=== PATIENT | female | born 1995 | race Caucasian/White ===

== ENCOUNTER 2018-11-11 23:06 | Inpatient (IN) | payer OTHER ==
--- NOTE | 2018-11-11 23:35 | C.PDOC ---
History Of Present Illness Patient states that she didn't feel well and felt some numbness of her left arm around 5 pm. Went to sleep and tried to get up to go to the bathroom and fell because her left leg "was not working" denies any loc, head trauma. No f/c/n/v. No long trips, no visual changes Time Seen by Provider: 11/11/18 23:21 Chief Complaint (Nursing): Upper Extremity Problem/Injury History Per: Patient History/Exam Limitations: no limitations Onset/Duration Of Symptoms: Hrs (7) Current Symptoms Are (Timing): Still Present Severity: Severe Pain Scale Rating Of: 7 Reports Recently: Treated By A Physician Recent travel outside of the [place]: No Additional History Per: Family Past Medical History Reviewed: Historical Data, Nursing Documentation, Vital Signs Vital Signs: Last Vital Signs Temp 98 F 11/11/18 23:24 Pulse 98 H 11/11/18 23:24 Resp 20 11/11/18 23:24 BP 110/76 11/11/18 23:24 Pulse Ox Family History: States: No Known Family Hx - Social History Hx Alcohol Use: No Hx Substance Use: No - Immunization History Hx Tetanus Toxoid Vaccination: No Hx Influenza Vaccination: No Hx Pneumococcal Vaccination: No Review Of Systems Constitutional: Negative for: Fever, Chills Eyes: Negative for: Vision Change ENT: Negative for: Throat Pain Cardiovascular: Negative for: Chest Pain Respiratory: Negative for: Shortness of Breath Gastrointestinal: Negative for: Nausea, Vomiting, Abdominal Pain Genitourinary: Negative for: Dysuria Musculoskeletal: Negative for: Back Pain Skin: Negative for: Rash Neurological: Positive for: Weakness Psych: Negative for: Anxiety Physical Exam - Physical Exam Appears: Non-toxic, In Acute Distress Skin: Warm, Dry Head: Normacephalic Eye(s): bilateral: Normal Inspection Oral Mucosa: Moist Neck: Trachea Midline, Supple Chest: Symmetrical Cardiovascular: Rhythm Regular Respiratory: No Rales, No Rhonchi, No Wheezing Gastrointestinal/Abdominal: Soft, No Tenderness, No Distention, No Guarding, No Rebound Back: Normal Inspection Extremity: No Tenderness, No Pedal Edema, No Other (left leg weakness) Extremity: Bilateral: Atraumatic, Normal Color And Temperature Pulses: Left Dorsalis Pedis: Normal, Right Dorsalis Pedis: Normal Neurological/Psych: Oriented x3, Normal Speech, Normal Cognition, Other Gait: Unsteady Extremity: Left: Drift Before 10 Secs (arm), Falls Before 10 Secs (leg) ED Course And Treatment - Laboratory Results Result Diagrams: 11/11/18 23:41 ECG: Interpreted By Me, Viewed By Me ECG Rhythm: Sinus Rhythm (90), Nonspecific Changes O2 Sat by Pulse Oximetry: 100 Pulse Ox Interpretation: Normal - Radiology CXR: Interpreted by Me, Viewed By Me CXR Interpretation: No: Infiltrates, Fracture, Pnemothorax Progress Note: code stroke called at 11:21 PM. 11:[address] crowder about a possible right parietal infarct on the ct. CTA no lvo. As per dr crowder, possible cardiac embolic cause. Will load plavix 300 mg and asa 81 mg,. will get echo , mri Critical Care Time - Critical Care Note Total Time (in mins): 30 Documented critical care: time excludes all time spent performing seperately billable procedures. NIHSS Stroke Scale - Date/Time Evaluation Performed Date Performed: 11/11/18 Time Performed: 23:20 When Was NIHSS Performed: Baseline - How Severe is the Stroke Level of Consciousness: 0=Alert LOC to Questions: 0=Both comments correct LOC to commands: 0=Obeys both correctly Best Gaze: 0=Normal Visual: 0=No visual loss Facial: 0=Normal Motor Arm - Left: 1=Drift noted before 10 sec Motor Arm - Right: 0=No drift Motor Leg - Left: 2=Falls before 5 sec Motor Leg - Right: 0=No drift Limb Ataxia: 0=Absent Sensory: 0=Normal Best Language: 0=No aphasia Dysarthia: 0=Normal articulation Extinction & Inattention (Neglect): 0=Normal, no object Score: 3 rTPA Inclusion/Exclusion - Refusal of Treatment Patient Refused Treatment: No - Inclusion Criteria for Altepase Patient is 18 years or Older: Yes The Clinical Diagnosis of Ischemic Stroke That is Causing a Potentially Disabling Neurological Deficit: Yes Time of Onset is Well Established to be Less Than 270 Minute Before Treatment Would Begin: No Risk/Benefit Discussed With Patient/Family Member Present: Yes - Exclusion Criteria for Altepase Uncontrolled Hypertension at Time of Treatment (Systolic BP above 185 or Diastolic BP above 110 mmHg): No Active Internal Bleeding: No Known Bleeding Diathesis Including but Not Limited to: Platelets Below 100,000/mm,PTT Above 40 sec After Heparin Use, Current Use of Oral Anitcoagulant With INR Greater Than 1.7 or PT Greater Than 15 secs: No Evidence of an Intracranial Hemorrhage: No Evidence of Major Acute Infarct With Signs Greater Than 1/3 MCA Territory: No Suspicion of Subarachnoid Hemorrhage on Pretreatment Evaluation Even if CT Head Negative For Hemorrhage: No Disposition Discussed With Dr.: Aleksandr Pisano Jr. Comment: accepted the pt on his service and took over thecare at 12:37 AM Doctor Will See Patient In The: ED Counseled Patient/Family Regarding: Studies Performed, Diagnosis - Disposition Disposition: HOSPITALIZED Disposition Time: 23:33 Condition: GUARDED Forms: [employer] (Danish) - Clinical Impression Clinical Impression: CVA (cerebral vascular accident) Decision To Admit - Pt Status Changed To: Hospital Disposition Of: Inpatient - Admit Certification Admit to Inpatient:: After my assessment, the patient will require hospitalization for at least two midnights. This is because of the severity of symptoms shown, intensity of services needed, and/or the medical risk in this patient being treated as an outpatient. - InPatient: Physician Admission Certification: I certify that this patient requires 2 or more midnights of care for the following reason:: After my assessment, the patient will require hospitalization for at least two midnights. This is becau se of the severity of symptoms shown, intensity of services needed, and/or the medical risk in this patient being treated as an outpatient. - . Bed Request Type: Telemetry Admitting Physician: Aleksandr Pisano Jr. Patient Diagnosis: CVA (cerebral vascular accident)
[2018-11-11] MEDS ORDERED: Iodixanol 320 MG/ML 100 ML BOTTLE IV ONE (23:40)
[2018-11-11 23:52] LABS: BASO % 0.1 % (0.0-2.0); EOS % 0.3 % (0.0-4.0); HEMOGLOBIN 9.8 g/dL (11.0-16.0); LYMPH # 1.5 K/uL (1.0-4.3); MEAN CORPUSCULAR HEMOGLOBIN 18.1 pg (27.0-31.0); MONO # 0.7 K/uL (0.0-0.8); RBC 5.41 Mil/uL (3.80-5.20)
[2018-11-11 23:53] LABS: INR 1.5; PROTHROMBIN TIME 15.9 SECONDS (9.7-12.2)
[2018-11-12 00:09] LABS: LDL CHOLESTEROL 60 mg/dL (0-129)
[2018-11-12 00:17] LABS: ALB/GLOB RATIO 0.7 (1.0-2.1); ALBUMIN 2.8 g/dL (3.5-5.0); ALT/SGPT 44 U/L (9-52); AST/SGOT 54 U/L (14-36); BLOOD UREA NITROGEN 6 mg/dL (7-17); CALCIUM 7.8 mg/dl (8.6-10.4); GFR NON-AFRICAN AMERICAN > 60; HDL CHOLESTEROL 27 mg/dL (30-70)
[2018-11-12] MEDS: Sodium Chloride 0.9% 1,000 ML IV SCH ×4 (00:21→22:11)
[2018-11-12 00:28] LABS: LYMPH % 17.5 % (20.0-40.0); MEAN CELL VOLUME 66.9 fL (81.0-99.0); MEAN PLATELET VOLUME 8.7 fL (7.2-11.7); MONO % 8.6 % (0.0-10.0); NEUT # 6.3 K/uL (1.8-7.0); NEUT % 73.5 % (50.0-75.0); NRBC % 0.2 % (0.0-2.0); RED CELL DISTRIBUTION WIDTH 19.3 % (11.5-14.5); WHITE BLOOD COUNT 8.6 K/uL (4.8-10.8)
--- NOTE | 2018-11-12 00:44 | CP.PCM.HP ---
History of Present Illness - History of Present Illness History of Present Illness: PGY-1 Fozia Reed D.O. H&P for Dr. Pisano's service: Patient is a 23 yo female with no known PMH who presents with L-sided weakness and numbness/tingling. Patient states that around 5PM, she started feeling pain in her L arm and then L leg. Her arm also felt weak, and she was unable to hold it up or bottom buffer things. She then started to feel numbness and tingling of her L arm. She went to bed around 9 PM and slept for approximately 1 hour. She attempted to get out of bed around 10 PM and fell onto the floor. She states she hit her head and lost consciousness. Her friend says she heard her fall and came into her room. She found her unresponsive on the floor. The friend was able to arouse her by shaking her. The friend says the patient appeared "shocked" and was unable to sit/stand up. She called 911 at that time. Presently, the patient says she has regained movement of her L leg. She says her L arm still fells week and she has numbness and tingling in her entire L arm. She also complains of mild LEMONS. Patient reports getting more frequent HAs over the past few weeks. She denies vision or hearing changes, including tinnitus. She denies chest pain, palpitations, SOB. She recently returned from [place] 10 days ago; she was there for one month. She states she had symptoms of "food poisoning" a few weeks ago, including N/V/D. She also describes recent early satiety and continued loose stools, approximately 2x/day. She denies blood in her stool. She has lost 22 lb unintentionally over the past 1 year. She went to the health clinic at her school who diagnosed her with acid reflux. They told her if symptoms do not reso lve with antacid, then she should see GI. Patient also says she has not been urinating as frequently as she used to despite having dry mouth and drinking an increased amount of fluids. She denies dysuria or hematuria. Patient reports her LMP was 2/2-11/22. She says her menses is regular, once/month with normal flow. 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 absent: Chills, Fever - EENT Eyes: absent: Blurred Vision, Change in Vision, Diplopia Ears: absent: Decreased Hearing, Tinnitus - Cardiovascular Cardiovascular: Syncope. absent: Chest Pain, Diaphoresis, Lightheadedness, Palpitations, Pedal Edema - Respiratory Respiratory: absent: Cough, Dyspnea - Gastrointestinal Gastrointestinal: Diarrhea, Dyspepsia, Early Satiety, Heartburn. absent: Abdominal Pain, Constipation, Hematochezia, Melena, Nausea, Vomiting - Genitourinary Genitourinary: Other (decreased urinary frequency). absent: Dysuria, Hematuria - Reproductive: Female Reproductive:Female: Normal Menses - Musculoskeletal Musculoskeletal: As Per HPI, Numbness, Tingling. absent: Stiffness - Integumentary Integumentary: absent: Lesions, Rash - Neurological Neurological: As Per HPI, Numbness, Focal Weakness, Headaches, Paresthesias, Sensory Deficit, Syncope, Tingling. absent: Confusion, Convulsions, Dizziness, Frequent Falls, Tremor - Endocrine Endocrine: Polydipsia. 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 Negative for: Lymphadenopathy, Tenderness, Thyromegaly - Respiratory Exam Respiratory Exam: Clear to Auscultation Bilateral, NORMAL BREATHING PATTERN. absent: Respiratory Distress - Cardiovascular Exam Cardiovascular Exam: RRR, +S1, +S2. absent: Rubs, Systolic Murmur - GI/Abdominal Exam GI & Abdominal Exam: Soft. absent: Distended, Tenderness - Extremities Exam Extremities exam: Positive for: normal inspection, pedal pulses present. Negative for: pedal edema, tenderness - Back Exam Back exam: NORMAL INSPECTION. absent: tenderness - Neurological Exam Neurological exam: Alert, CN II-XII Intact, Oriented x3 - Expanded Neurological Exam Expanded Patient oriented to: person, place, time Cranial nerves: EOM's Intact: Normal, Facial Palsey w/Forehead Movement: Normal, Facial Palsey w/o Forehead Movement: Normal, Facial Sensation: Normal, Gag Reflex: Normal, Nystagmus: Normal, Tongue Deviation: Normal Cerebellar Function: Finger to Nose: Normal Upper motor neuron: Pronator Drift: Normal Sensory exam: Lower Extremity 2 Point Discrimination: Normal, Lower Extremity Light Touch: Normal, Upper Extremity 2 Point Discrimination: Abnormal Left, Upper Extremity Light Touch: Abnormal Left Neuro motor strength exam: Left Upper Extremity: 4 (equal bottom buffer strength), Right Upper Extremity: 5, Left Lower Extremity: 5, Right Lower Extremity: 5 Coma Scale Eye Opening: SPONTANEOUS Coma Scale Motor Response: OBEYS COMMANDS Coma Scale Verbal: Oriented Coma Scale Total: 15 - Psychiatric Exam Psychiatric exam: Normal Affect, Normal Mood - Skin Skin Exam: Dry, Intact, Normal Color, Warm Results - Vital Signs Recent Vital Signs: Last Vital Signs Temp 98 F 11/11/18 23:24 Pulse 98 H 11/11/18 23:24 Resp 20 11/11/18 23:24 BP 110/76 11/11/18 23:24 Pulse Ox 100 11/12/18 00:37 - Labs Result Diagrams: 11/11/18 23:41 11/11/18 23:41 Labs: Laboratory Results - last 24 hr 11/11/18 11/11/18 11/11/18 23:24 23:41 23:41 WBC 8.6 RBC 5.41 H Hgb 9.8 L Hct 36.2 MCV 66.9 L MCH 18.1 L MCHC 27.0 L RDW 19.3 H Plt Count 268 MPV 8.7 Neut % (Auto) 73.5 Lymph % (Auto) 17.5 L Woods % (Auto) 8.6 Eos % (Auto) 0.3 Baso % (Auto) 0.1 Neut # (Auto) 6.3 Lymph # (Auto) 1.5 Woods # (Auto) 0.7 Eos # (Auto) 0.0 Baso # (Auto) 0.0 PT 15.9 H INR 1.5 APTT 27 Sodium Potassium Chloride Carbon Dioxide Anion Gap BUN Creatinine Est GFR ( Amer) Est GFR (Non-Af Amer) POC Glucose (mg/dL) 85 Random Glucose Calcium Total Bilirubin AST ALT Alkaline Phosphatase Troponin I Total Protein Albumin Globulin Albumin/Globulin Ratio Triglycerides Cholesterol LDL Cholesterol Direct HDL Cholesterol 11/11/18 23:41 WBC RBC Hgb Hct MCV MCH MCHC RDW Plt Count MPV Neut % (Auto) Lymph % (Auto) Woods % (Auto) Eos % (Auto) Baso % (Auto) Neut # (Auto) Lymph # (Auto) Woods # (Auto) Eos # (Auto) Baso # (Auto) PT INR APTT Sodium 134 Potassium 3.6 Chloride 112 H Carbon Dioxide 11 L* Anion Gap 14 BUN 6 L Creatinine 0.6 L Est GFR ( Amer) > 60 Est GFR (Non-Af Amer) > 60 POC Glucose (mg/dL) Random Glucose 79 Calcium 7.8 L Total Bilirubin 0.4 AST 54 H ALT 44 Alkaline Phosphatase 113 Troponin I < 0.0120 Total Protein 7.0 Albumin 2.8 L Globulin 4.2 H Albumin/Globulin Ratio 0.7 L Triglycerides 142 Cholesterol 91 LDL Cholesterol Direct 60 HDL Cholesterol 27 L - EKG Data EKG Interpreted by: Myself EKG shows normal: Sinus rhythm Rate: Normal Assessment & Plan - Assessment and Plan (Free Text) Assessment: Patient is a 23 yo female with no known PMH who presented with L-sided weakness. Code stroke called, and CT head showed ischemic infarct of R parietal lobe. Plan: Ischemic CVA of R parietal lobe - CT head: R parietal lobe infarct - f/u final read - CTA head/neck: negative - EKG: NSR - A1c 4.9 - SUHA negative - PT/INR/PTT wnl - Lipid panel wnl - MRI brain pending - Echo with bubble study pending - Hypercoagulability work-up pending - TSH, free T4 pending - ASA 81 mg PO daily - Plavix 75 mg PO daily (given loading dose 300 in ED_) - Neurology consulted (Lori) Microcytic anemia - LMP 2/2-2/5- regular - Hgb 9.8- unknown baseline - MCV 66.9 - Iron studies pending - Monitor H/H Ppx: VTE: SCDs contraindicated 2/2 paresthesias GI: not indicated Code status: full code Case discussed with attending, Dr. Pisano.
--- NOTE | 2018-11-12 08:09 | RAD ---
HISTORY: Code Stroke COMPARISON: None available. TECHNIQUE: Chest, one view. FINDINGS: LUNGS: No focal consolidation. Please note that chest x-ray has limited sensitivity for the detection of pulmonary masses. PLEURA: No significant pleural effusion identified. No definite pneumothorax . CARDIOVASCULAR: Heart size appears within normal limits. No significant atherosclerotic calcification present. OSSEOUS STRUCTURES: No acute osseous abnormality identified. VISUALIZED UPPER ABDOMEN: Unremarkable. OTHER FINDINGS: None. IMPRESSION: No focal consolidation.
--- NOTE | 2018-11-12 08:31 | CT ---
Date of service: 11/11/2018 PROCEDURE: CT HEAD WITHOUT CONTRAST. HISTORY: CODE STROKE COMPARISON: None available. TECHNIQUE: Axial computed tomography images were obtained through the head/brain without intravenous contrast. Radiation dose: Total exam DLP = 775.7 mGy-cm. This CT exam was performed using one or more of the following dose reduction techniques: Automated exposure control, adjustment of the mA and/or kV according to patient size, and/or use of iterative reconstruction technique. FINDINGS: HEMORRHAGE: No intracranial hemorrhage. BRAIN: No mass effect or edema. Faint hypodensity in the right parietal lobe consistent with infarction. Please note that MRI with diffusion imaging is more sensitive in the detection of acute ischemic event. VENTRICLES: No hydrocephalus. CALVARIUM: Unremarkable. PARANASAL SINUSES: Unremarkable as visualized. No significant inflammatory changes. MASTOID AIR CELLS: Unremarkable as visualized. No inflammatory changes. OTHER FINDINGS: None. IMPRESSION: Faint hypodensity in the right parietal lobe consistent with infarction. Please note that MRI with diffusion imaging is more sensitive in the detection of acute ischemic event. Preliminary impression was provided by [employer].
--- NOTE | 2018-11-12 09:52 | CT ---
Date of service: 11/11/2018 PROCEDURE: CTA HEAD AND NECK WITH CONTRAST HISTORY: CODE STROKE COMPARISON: None. TECHNIQUE: Initial noncontrast head CT was performed. Subsequently, CT angiogram of the head and neck were performed after the intravenous administration of 80 mL of Omnipaque 350. Contiguous 1.5mm thick images were obtained in the axial plane of the neck. 2-D coronal and sagittal MPR images were obtained. Imaging postprocessing was performed with 3-D images also obtained. A delayed contrast head CT was also obtained. This CT exam was performed using one or more of the following dose reduction techniques: Automated exposure control, adjustment of the mA and/or kV according to patient size, and/or use of iterative reconstruction technique. Contrast dose: 100 mL Omnipaque 350 Radiation dose: Total exam DLP = 277.15 mGy-cm. FINDINGS: HEAD: Right: The intracranial internal carotid artery, and anterior and middle cerebral arteries are widely patent. Left: The intracranial internal carotid artery, and anterior and middle cerebral arteries are widely patent. Posterior circulation: The visualized intracranial vertebral arteries, basilar artery and posterior cerebral arteries are widely patent. There is no endoluminal filling defect to suggest thrombus. There is no intracranial saccular aneurysm. NECK: There is a three vessel aortic arch. There is no stenosis at the origins of the great vessels at the level of the aortic arch. No atherosclerotic calcification or mural plaque present. Right Carotid: On the right, the common carotid, internal carotid and external carotid arteries are widely patent. There is no hemodynamically significant stenosis in the internal carotid artery by NASCET criteria. Left Carotid: On the left, the common carotid, internal carotid and external carotid arteries are widely patent. There is no hemodynamically significant stenosis in the internal carotid artery by NASCET criteria. The vertebral arteries are widely patent. The visualized soft tissues of the neck are normal. The visualized brain and cervical spine are within normal limits. The lung apices are clear. IMPRESSION: 1. No evidence of endoluminal thrombus,occlusion or definite significant stenosis in the intracranial arteries. 2. No evidence of hemodynamically significant stenosis in the internal carotid arteries. 3. Patent bilateral vertebral arteries. A preliminary report was provided by [email or web address].
[2018-11-12] MEDS ORDERED: Gadodiamide 287 MG/ML VIAL (15ML) IV ONE (09:59)
--- NOTE | 2018-11-12 10:45 | CARD ---
APPROVED REPORT Date of service: 11/12/2018 EKG Measurement Heart [id number] <Conclusion> Normal sinus rhythm Normal ECG
--- NOTE | 2018-11-12 10:58 | CP.PCM.PN ---
Subjective - Date & Time of Evaluation Date of Evaluation: 11/12/18 Time of Evaluation: 10:53 - Subjective Subjective: Saulo Patrick PGY1 Progress Note for Dr. Pisano Pt examined at bedside this morning. She reports feeling tired and weak this morning. However, she says the numbness and tingling in the L side of the body has stopped. She denies headache, blurry vision, dizziness at this time. Objective - Vital Signs/Intake and Output Vital Signs (last 24 hours): Temp Pulse Resp BP Pulse Ox 99 F 88 20 106/56 L 100 11/12/18 08:00 11/12/18 08:00 11/12/18 08:00 11/12/18 08:00 11/12/18 08:00 Intake and Output: 11/12/18 11/12/18 06:59 18:59 Intake Total 0 Output Total 0 Balance 0 - Medications Medications: Current Medications Aspirin (Ecotrin) 81 mg PO DAILY DONTRELL Clopidogrel Bisulfate (Plavix) 75 mg PO DAILY DONTRELL Sodium Chloride (Sodium Chloride 0.9%) 1,000 mls @ 100 mls/hr IV .Q10H DONTRELL Last Admin: 11/12/18 00:21 Dose: 100 mls/hr - Labs Labs: 11/11/18 23:41 11/11/18 23:41 PT 15.9 SECONDS (9.7-12.2) H 11/11/18 23:41 INR 1.5 11/11/18 23:41 APTT 27 SECONDS (21-34) 11/11/18 23:41 - Constitutional Appears: Well, No Acute Distress - Head Exam Head Exam: ATRAUMATIC, NORMOCEPHALIC - Eye Exam Eye Exam: EOMI, Normal appearance, PERRL Pupil Exam: NORMAL ACCOMODATION - ENT Exam ENT Exam: Mucous Membranes Moist - Respiratory Exam Respiratory Exam: Clear to Ausculation Bilateral, NORMAL BREATHING PATTERN. absent: Rales, Rhonchi, Wheezes - Cardiovascular Exam Cardiovascular Exam: REGULAR RHYTHM, +S1, +S2. absent: Gallop, Rubs, Murmur - GI/Abdominal Exam GI & Abdominal Exam: Soft, Normal Bowel Sounds. absent: Distended, Firm, Tenderness - Extremities Exam Extremities Exam: Normal Inspection. absent: Calf Tenderness, Joint Swelling, Pedal Edema - Neurological Exam Neurological Exam: Alert, Awake, CN II-XII Intact, Motor Sensory Deficit, Oriented x3 Neuro motor strength exam: Left Upper Extremity: 4, Right Upper Extremity: 5, Left Lower Extremity: 5, Right Lower Extremity: 5 Additional comments: no sensory deficit cement block maker strength intact b/l +pronator drift downgoing babinski b/l - Psychiatric Exam Psychiatric exam: Anxious - Skin Skin Exam: Normal Color Assessment and Plan - Assessment and Plan (Free Text) Assessment: Patient is a 23 yo female with no known PMH who presented with L-sided weakness. Code stroke called, and CT head showed ischemic infarct of R parietal lobe, admitted for further workup and evaluation. MRI showed R posterior parietal infarct, likely secondary to hypercoaguable state due to dehydration. Plan: Left Sided Neuropathy Ischemic CVA of R parietal lobe - likely secondary to dehydration causing hypercoaguable state - history of diarrhea x3 weeks - CT head: faint hypodensity in R parietal lobe consistent with infarction. - CTA head/neck: negative - MRI brain: 3.6x2.4cm venous infarct in R posterior parietal area from thrombus. no midline shift or mass effect. - MRI C-spine: no abnormalities - EKG: NSR - HbA1c 4.9 - SUHA negative - PT/INR/PTT wnl - Lipid panel wnl - Echo with bubble study pending - f/u ESR, CRP, HIV, RPR, Hep panel, lyme, quantiferon - Hypercoagulability work-up pending - TSH, free T4 pending - consider LP - Neurology consulted, Dr. Sandoval - recs appreciated Diarrhea - f/u stool ova and parasite - f/u giardia, cryptosporidium - f/u fecal leukocytes - consider GI consult to prevent bleed Microcytic anemia - LMP 2/2-2/5- regular - Hgb 9.8- unknown baseline - MCV 66.9 - Iron studies pending - f/u B12 - Monitor H/H Ppx: VTE: SCDs contraindicated 2/2 paresthesias GI: not indicated Code status: full code Case discussed with attending, Dr. Pisano.
[2018-11-12] MEDS ORDERED: Heparin25000 units/250ml 1/2NS 25,000 UNITS/250 ML BAG IV PRN (11:34)
--- NOTE | 2018-11-12 11:36 | MRI ---
Date of service: 11/12/2018 PROCEDURE: MRI BRAIN WITH AND WITHOUT CONTRAST HISTORY: code stroke COMPARISON: Noncontrast head CT from 11/11/2018. TECHNIQUE: Multiplanar, multisequence MR images of the brain were obtained with and without intravenous contrast enhancement. 9 mL Omniscan was injected intravenously FINDINGS: HEMORRHAGE: There is an approximately 3.6 x 2.4 cm venous infarction in the right posterior parietal lobe with juxtacortical hemorrhage. There is linear increased magnetic susceptibility corresponding to the juxtacortical hemorrhage on gradient images. DWI: There is peripheral restricted diffusion in the right posterior parietal hemorrhagic venous infarction. BRAIN PARENCHYMA: There is mild local mass effect and effacement of the cortical sulci. No evidence for midline shift or herniation. There is no abnormal extra-axial fluid collection. ENHANCEMENT: There is curvilinear peripheral and linear central enhancement in the right posterior parietal hemorrhagic venous infarction. VENTRICLES: The ventricles are normal in size, shape and configuration. CRANIUM: There is normal bone marrow signal pattern. ORBITS: Grossly unremarkable. PARANASAL SINUSES/MASTOIDS: Predominantly clear. VASCULAR SYSTEM: There are normal signal voids in the larger intracranial arteries. There is increased T1 signal in a peripheral cortical vein in the right posterior parietal lobe leading up to the hemorrhagic venous infarction most compatible with cortical venous thrombus. OTHER FINDINGS: None . IMPRESSION: 1. 3.6 x 2.4 cm venous infarction in the right posterior parietal lobe with juxtacortical hemorrhage. No significant mass effect or midline shift. 2. Cortical venous thrombosis leading up to the hemorrhagic venous infarction in the right posterior parietal lobe. Critical findings were discussed with Dr. Arturo Sandoval on 11/12/2018 at 11:15 a.m.
[2018-11-12] MEDS ORDERED: Sodium Chloride 0.9% 500 ML IV ONE (11:37)
--- NOTE | 2018-11-12 11:42 | MRI ---
Date of service: 11/12/2018 PROCEDURE: MR CERVICAL SPINE WITH AND WITHOUT CONTRAST HISTORY: neuro deficits COMPARISON: None available. TECHNIQUE: Multiecho multiplanar sequences were performed through the cervical spine with and without the use of intravenous contrast. 8 mL Omniscan was injected in FINDINGS: There is normal alignment of the cervical vertebral bodies. There is normal cervical lordosis. Vertebral height is normal. There is normal bone marrow signal pattern. There is no acute fracture or traumatic anterior listhesis. The craniocervical junction is normal. The atlantoaxial joint normal. The cervical cord is normal in contour, caliber and has normal intrinsic signal. No evidence for abnormal intramedullary or leptomeningeal enhancement. C2-3: No disc herniation, spinal canal stenosis or neural foraminal narrowing. C3-4: No disc herniation, spinal canal stenosis or neural foraminal narrowing. C4-5: No disc herniation, spinal canal stenosis or neural foraminal narrowing. C5-C6: No disc herniation, spinal canal stenosis or neural foraminal narrowing. C6-C7: No disc herniation, spinal canal stenosis or neuroforaminal narrowing. C7-T1: No disc herniation, spinal canal stenosis or neural foraminal narrowing. OTHER FINDINGS: None. IMPRESSION: Normal pre and post contrast MRI of the cervical spine.
[2018-11-12 12:31] LABS: SQUAMOUS EPITHIAL 1 /hpf (0-5); URINE BILIRUBIN NEGATIVE (NEGATIVE); URINE BLOOD NEGATIVE (NEGATIVE); URINE CLARITY Hazy (Clear); URINE COLOR Yellow (YELLOW); URINE GLUCOSE (UA) NORMAL (Normal); URINE LEUKOCYTE ESTERASE NEG Leu/uL (Negative); URINE PROTEIN NEGATIVE (NEGATIVE); URINE UROBILINOGEN NORMAL mg/dL (0.2-1.0)
[2018-11-12] MEDS: Heparin25000 units/250ml 1/2NS 25,000 UNITS/250 ML BAG IV PRN (13:00)
--- NOTE | 2018-11-12 13:27 | CP.PCM.CON ---
<Maryann MedinaFide - Last Filed: 11/12/18 13:16> History of Present Illness - History of Present Illness History of Present Illness: PGY2- Consult note for neuro Patient is a 23 year old female with no known PMHx who presented to the ED with left sided weakness and numbness and tingling. Patient said she was at home when she started to notice left sided arm heaviness and heaviness and tingling in her head. She also noticed some left sided leg weakness. Patient continued on with her night, had dinner, and went to bed. She woke up about 45 minutes later feeling some jerking and heaviness in her left arm. When she tried to get out of bed she fell and lost consciousness. Her roommate heard her fall and found her unresponsive on the ground, but was able to wake her. Her roommate called 911 and patient was brought to ER by ambulance. Of note patient had been sick in [place] (she visited for 1 month and returned about 10 days ago) starting at the end of September with diarrhea. Patient was given Ofloxacin which she completed the full course of. Patient also admits to about 10kg of unintentional weight loss over the past year. Today patient still has some left sided weakness. Patient denies any numbness or tingling. Patient denies headache, dizziness, chest pain, abdominal pain, nausea, vomiting, constipation. Patient's last bm was yesterday. 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 absent: Nausea, Vomiting - Musculoskeletal Musculoskeletal: absent: Numbness, Tingling - Integumentary Integumentary: absent: Rash - Neurological Neurological: Weakness Past Patient History - Infectious Disease Hx of Infectious Diseases: None - Tetanus Immunizations Tetanus Immunization: Unknown - Past Medical History & Family History Past Medical History?: Yes - Past Social History Smoking Status: Never Smoked - CARDIAC Hx Cardiac Disorders: No - PULMONARY Hx Respiratory Disorders: No - NEUROLOGICAL Hx Neurological Disorder: No - HEENT Hx HEENT Problems: No - RENAL Hx Chronic Kidney Disease: No - ENDOCRINE/METABOLIC Hx Endocrine Disorders: No - HEMATOLOGICAL/ONCOLOGICAL Hx Blood Disorders: No - INTEGUMENTARY Hx Dermatological Problems: No - MUSCULOSKELETAL/RHEUMATOLOGICAL Hx Musculoskeletal Disorders: No Hx Falls: Yes - GASTROINTESTINAL Hx Gastrointestinal Disorders: Yes Hx Diarrhea: Yes Hx Gastroesophageal Reflux: Yes - GENITOURINARY/GYNECOLOGICAL Hx Genitourinary Disorders: No - PSYCHIATRIC Hx Psychophysiologic Disorder: No Hx Substance Use: No - SURGICAL HISTORY Hx Surgeries: No - ANESTHESIA Hx Anesthesia: No Meds Allergies/Adverse Reactions: Allergies Allergy/AdvReac Type Severity Reaction Status Date / Time No Known Allergies Allergy Unverified 11/11/18 23:27 - Medications Medications: Current Medications Aspirin (Ecotrin) 81 mg PO DAILY [facility] Last Admin: 11/12/18 11:33 Dose: 81 mg Clopidogrel Bisulfate (Plavix) 75 mg PO DAILY [facility] Last Admin: 11/12/18 11:31 Dose: 75 mg Sodium Chloride (Sodium Chloride 0.9%) 1,000 mls @ 100 mls/hr IV .Q10H [facility] Last Admin: 11/12/18 11:29 Dose: Not Given Heparin Sodium/Sodium Chloride (Heparin 08777 Units/250ml 1/2 Normal Saline) 25,000 units in 250 mls @ 6.891 mls/hr IV .Q24H PRN; Protocol PRN Reason: PROTOCOL Physical Exam - Constitutional Appears: Non-toxic, No Acute Distress, Cachectic - Head Exam Head Exam: ATRAUMATIC, NORMAL INSPECTION, NORMOCEPHALIC - Eye Exam Eye Exam: EOMI, Normal appearance - ENT Exam ENT Exam: Mucous Membranes Moist - Respiratory Exam Respiratory Exam: Clear to Auscultation Bilateral, NORMAL BREATHING PATTERN. absent: Rales, Rhonchi, Wheezes, Respiratory Distress, Stridor - Cardiovascular Exam Cardiovascular Exam: REGULAR RHYTHM, RRR, +S1, +S2 - GI/Abdominal Exam GI & Abdominal Exam: Hyperactive Bowel Sounds, Soft. absent: Tenderness - Extremities Exam Extremities exam: Positive for: normal inspection - Back Exam Back exam: NORMAL INSPECTION - Neurological Exam Neurological exam: Alert, CN II-XII Intact, Oriented x3 - Expanded Neurological Exam Expanded Patient oriented to: person, place, time Cerebellar Function: Finger to Nose: Abnormal Left Upper motor neuron: Babinski Sign: Normal, Jaime Neglect: Abnormal Left, Pronator Drift: Abnormal Left, Sensory Extinction: Normal Neuro motor strength exam: Left Upper Extremity: 5, Right Upper Extremity: 5, Left Lower Extremity: 5, Right Lower Extremity: 5 - Psychiatric Exam Psychiatric exam: Normal Affect, Normal Mood - Skin Skin Exam: Intact, Normal Color, Warm Results - Vital Signs Recent Vital Signs: Last Vital Signs Temp 99 F 11/12/18 08:00 Pulse 88 11/12/18 08:00 Resp 20 11/12/18 08:00 BP 106/56 L 11/12/18 08:00 Pulse Ox 100 11/12/18 08:00 - Labs Result Diagrams: 11/11/18 23:41 11/11/18 23:41 Labs: Laboratory Results - last 24 hr 11/11/18 11/11/18 11/11/18 23:24 23:41 23:41 WBC 8.6 RBC 5.41 H Hgb 9.8 L Hct 36.2 MCV 66.9 L MCH 18.1 L MCHC 27.0 L RDW 19.3 H Plt Count 268 MPV 8.7 Neut % (Auto) 73.5 Lymph % (Auto) 17.5 L [place] % (Auto) 8.6 Eos % (Auto) 0.3 Baso % (Auto) 0.1 Neut # (Auto) 6.3 Lymph # (Auto) 1.5 [place] # (Auto) 0.7 Eos # (Auto) 0.0 Baso # (Auto) 0.0 PT 15.9 H INR 1.5 APTT 27 Sodium Potassium Chloride Carbon Dioxide Anion Gap BUN Creatinine Est GFR ( Amer) Est GFR (Non-Af Amer) POC Glucose (mg/dL) 85 Random Glucose Hemoglobin A1c Calcium Total Bilirubin AST ALT Alkaline Phosphatase Troponin I Total Protein Albumin Globulin Albumin/Globulin Ratio Triglycerides Cholesterol LDL Cholesterol Direct HDL Cholesterol Urine Color Urine Clarity Urine pH Ur Specific [place] Urine Protein Urine Glucose (UA) Urine Ketones Urine Blood Urine Nitrate Urine Bilirubin Urine Urobilinogen Ur Leukocyte Esterase Urine WBC (Auto) Urine RBC (Auto) Ur Squamous Epith Cells 11/11/18 11/11/18 11/12/18 23:41 23:41 12:01 WBC RBC Hgb Hct MCV MCH MCHC RDW Plt Count MPV Neut % (Auto) Lymph % (Auto) [place] % (Auto) Eos % (Auto) Baso % (Auto) Neut # (Auto) Lymph # (Auto) [place] # (Auto) Eos # (Auto) Baso # (Auto) PT INR APTT Sodium 134 Potassium 3.6 Chloride 112 H Carbon Dioxide 11 L* Anion Gap 14 BUN 6 L Creatinine 0.6 L Est GFR ( Amer) > 60 Est GFR (Non-Af Amer) > 60 POC Glucose (mg/dL) Random Glucose 79 Hemoglobin A1c 4.9 Calcium 7.8 L Total Bilirubin 0.4 AST 54 H ALT 44 Alkaline Phosphatase 113 Troponin I < 0.0120 Total Protein 7.0 Albumin 2.8 L Globulin 4.2 H Albumin/Globulin Ratio 0.7 L Triglycerides 142 Cholesterol 91 LDL Cholesterol Direct 60 HDL Cholesterol 27 L Urine Color Yellow Urine Clarity Hazy Urine pH 5.0 Ur Specific [place] 1.012 Urine Protein Negative Urine Glucose (UA) Normal Urine Ketones Negative Urine Blood Negative Urine Nitrate Negative Urine Bilirubin Negative Urine Urobilinogen Normal Ur Leukocyte Esterase Neg Urine WBC (Auto) 3 Urine RBC (Auto) < 1 Ur Squamous Epith Cells 1 Assessment & Plan - Assessment and Plan (Free Text) Assessment: Cortical Venous Thrombosis causing Venous Infarction in R posterior parietal lobe transfer to ICU MRI (11/12/18) : 3.6 x 2.4cm venous infarction in the right posterior parietal lobe with juxtacortical hemorrhage. no significant mass effect or midline shift. cortical venous thrombosis leading up to the hemorrhagic venous infarction in the right posterior parietal lobe. MRI C spine (11/12/18): normal pre and post contrast MRI of the cervical spine. CTA head and neck (11/11/18): 1. no evidence of endoluminal thrombus, occlusion, or definite significant stenosis in the intracranial arteries. 2. No evidence of hemodynamically significant stenosis in the internal carotid arteries. 3.Patent bilateral vertebral arteries. CT Head (11/11/18): faint hypodensity in the right parietal lobe consistent with infarction. f/u Echo with bubble study pending f/u Hypercoagulability work-up, vit B12, TSH, free T4 f/u HIV, RPR, hepatitis panel meds: * Heparin drip, please keep PTT 80-90 * NS 500ml bolus given, continue at 100mls/hr Diarrhea f/u stool studies: cryptosporidium, giardia, fecal leukocytes, stool culture start Florastor 250mg po BID GI consult, help appreciated Discussed with Dr. Lori Medina, PGY2 <Montez Bojorquez - Last Filed: 11/12/18 18:07> Meds - Medications Medications: Current Medications Sodium Chloride (Sodium Chloride 0.9%) 1,000 mls @ 100 mls/hr IV .Q10H [facility] Last Admin: 11/12/18 11:29 Dose: Not Given Heparin Sodium/Sodium Chloride (Heparin 00761 Units/250ml 1/2 Normal Saline) 25,000 units in 250 mls @ 6.891 mls/hr IV .Q24H PRN; Protocol PRN Reason: PROTOCOL Last Admin: 11/12/18 13:00 Dose: 18 units/kg/hr, 6.891 mls/hr Ciprofloxacin (Cipro 400mg/200ml Dsw) 400 mg in 200 mls @ 133 mls/hr IVPB Q12H [facility]; Protocol Metronidazole (Flagyl) 500 mg in 100 mls @ 100 mls/hr IVPB Q8H [facility]; Protocol Magnesium Sulfate/Dextrose (Magnesium Sulfate 1 Gm/100 Ml D5w) 1 gm in 100 mls @ 200 mls/hr IVPB Q30M [facility] Stop: 11/12/18 18:59 Pantoprazole Sodium (Protonix Ec Tab) 40 mg PO DAILY [facility] Saccharomyces Boulardii (Florastor) 250 mg PO BID [facility] Results - Vital Signs Recent Vital Signs: Last Vital Signs Temp 101.8 F H 11/12/18 15:00 Pulse 130 H 11/12/18 18:00 Resp 23 11/12/18 18:00 BP 88/62 L 11/12/18 17:38 Pulse Ox 100 11/12/18 18:00 - Labs Result Diagrams: 11/12/18 16:06 11/11/18 23:41 Labs: Laboratory Results - last 24 hr 11/11/18 11/11/18 11/11/18 23:24 23:41 23:41 WBC 8.6 RBC 5.41 H Hgb 9.8 L Hct 36.2 MCV 66.9 L MCH 18.1 L MCHC 27.0 L RDW 19.3 H Plt Count 268 MPV 8.7 Neut % (Auto) 73.5 Lymph % (Auto) 17.5 L [place] % (Auto) 8.6 Eos % (Auto) 0.3 Baso % (Auto) 0.1 Neut # (Auto) 6.3 Lymph # (Auto) 1.5 [place] # (Auto) 0.7 Eos # (Auto) 0.0 Baso # (Auto) 0.0 ESR PT 15.9 H INR 1.5 APTT 27 Sodium Potassium Chloride Carbon Dioxide Anion Gap BUN Creatinine Est GFR ( Amer) Est GFR (Non-Af Amer) POC Glucose (mg/dL) 85 Random Glucose Hemoglobin A1c Calcium Phosphorus Magnesium Iron TIBC % Saturation Ferritin Total Bilirubin AST ALT Alkaline Phosphatase Troponin I Total Protein Albumin Globulin Albumin/Globulin Ratio Triglycerides Cholesterol LDL Cholesterol Direct HDL Cholesterol Vitamin B12 Free T4 TSH 3rd Generation Urine Color Urine Clarity Urine pH Ur Specific [place] Urine Protein Urine Glucose (UA) Urine Ketones Urine Blood Urine Nitrate Urine Bilirubin Urine Urobilinogen Ur Leukocyte Esterase Urine WBC (Auto) Urine RBC (Auto) Ur Squamous Epith Cells RPR Hepatitis A IgM Ab Hep Bs Antigen Hep B Core IgM Ab Hepatitis C Antibody 11/11/18 11/11/18 11/12/18 23:41 23:41 12:01 WBC RBC Hgb Hct MCV MCH MCHC RDW Plt Count MPV Neut % (Auto) Lymph % (Auto) [place] % (Auto) Eos % (Auto) Baso % (Auto) Neut # (Auto) Lymph # (Auto) [place] # (Auto) Eos # (Auto) Baso # (Auto) ESR PT INR APTT Sodium 134 Potassium 3.6 Chloride 112 H Carbon Dioxide 11 L* Anion Gap 14 BUN 6 L Creatinine 0.6 L Est GFR ( Amer) > 60 Est GFR (Non-Af Amer) > 60 POC Glucose (mg/dL) Random Glucose 79 Hemoglobin A1c 4.9 Calcium 7.8 L Phosphorus Magnesium Iron TIBC % Saturation Ferritin Total Bilirubin 0.4 AST 54 H ALT 44 Alkaline Phosphatase 113 Troponin I < 0.0120 Total Protein 7.0 Albumin 2.8 L Globulin 4.2 H Albumin/Globulin Ratio 0.7 L Triglycerides 142 Cholesterol 91 LDL Cholesterol Direct 60 HDL Cholesterol 27 L Vitamin B12 Free T4 TSH 3rd Generation Urine Color Yellow Urine Clarity Hazy Urine pH 5.0 Ur Specific [place] 1.012 Urine Protein Negative Urine Glucose (UA) Normal Urine Ketones Negative Urine Blood Negative Urine Nitrate Negative Urine Bilirubin Negative Urine Urobilinogen Normal Ur Leukocyte Esterase Neg Urine WBC (Auto) 3 Urine RBC (Auto) < 1 Ur Squamous Epith Cells 1 RPR Hepatitis A IgM Ab Hep Bs Antigen Hep B Core IgM Ab Hepatitis C Antibody 11/12/18 11/12/18 11/12/18 15:59 15:59 15:59 WBC RBC Hgb Hct MCV MCH MCHC RDW Plt Count MPV Neut % (Auto) Lymph % (Auto) [place] % (Auto) Eos % (Auto) Baso % (Auto) Neut # (Auto) Lymph # (Auto) [place] # (Auto) Eos # (Auto) Baso # (Auto) ESR PT INR APTT Sodium Potassium Chloride Carbon Dioxide Anion Gap BUN Creatinine Est GFR ( Amer) Est GFR (Non-Af Amer) POC Glucose (mg/dL) Random Glucose Hemoglobin A1c Calcium Phosphorus 3.0 Magnesium 1.5 L Iron 24 L TIBC 204 L % Saturation 12 L Ferritin 4.2 Total Bilirubin AST ALT Alkaline Phosphatase Troponin I Total Protein Albumin Globulin Albumin/Globulin Ratio Triglycerides Cholesterol LDL Cholesterol Direct HDL Cholesterol Vitamin B12 301 Free T4 TSH 3rd Generation 1.03 Urine Color Urine Clarity Urine pH Ur Specific [place] Urine Protein Urine Glucose (UA) Urine Ketones Urine Blood Urine Nitrate Urine Bilirubin Urine Urobilinogen Ur Leukocyte Esterase Urine WBC (Auto) Urine RBC (Auto) Ur Squamous Epith Cells RPR Hepatitis A IgM Ab Negative Hep Bs Antigen Negative Hep B Core IgM Ab Negative Hepatitis C Antibody Negative 11/12/18 11/12/18 11/12/18 16:03 16:03 16:06 WBC RBC Hgb Hct MCV MCH MCHC RDW Plt Count MPV Neut % (Auto) Lymph % (Auto) [place] % (Auto) Eos % (Auto) Baso % (Auto) Neut # (Auto) Lymph # (Auto) [place] # (Auto) Eos # (Auto) Baso # (Auto) ESR 10 PT INR APTT Sodium Potassium Chloride Carbon Dioxide Anion Gap BUN Creatinine Est GFR ( Amer) Est GFR (Non-Af Amer) POC Glucose (mg/dL) Random Glucose Hemoglobin A1c Calcium Phosphorus Magnesium Iron TIBC % Saturation Ferritin Total Bilirubin AST ALT Alkaline Phosphatase Troponin I Total Protein Albumin Globulin Albumin/Globulin Ratio Triglycerides Cholesterol LDL Cholesterol Direct HDL Cholesterol Vitamin B12 Free T4 1.42 TSH 3rd Generation Urine Color Urine Clarity Urine pH Ur Specific [place] Urine Protein Urine Glucose (UA) Urine Ketones Urine Blood Urine Nitrate Urine Bilirubin Urine Urobilinogen Ur Leukocyte Esterase Urine WBC (Auto) Urine RBC (Auto) Ur Squamous Epith Cells RPR Nonreactive Hepatitis A IgM Ab Hep Bs Antigen Hep B Core IgM Ab Hepatitis C Antibody 11/12/18 16:06 WBC 6.6 RBC 4.63 Hgb 8.6 L Hct 29.8 L MCV 64.5 L D MCH 18.6 L MCHC 28.8 L RDW 18.5 H Plt Count 246 MPV 8.7 Neut % (Auto) 70.6 Lymph % (Auto) 20.6 [place] % (Auto) 8.6 Eos % (Auto) 0.1 Baso % (Auto) 0.1 Neut # (Auto) 4.7 Lymph # (Auto) 1.4 [place] # (Auto) 0.6 Eos # (Auto) 0.0 Baso # (Auto) 0.0 ESR PT INR APTT Sodium Potassium Chloride Carbon Dioxide Anion Gap BUN Creatinine Est GFR ( Amer) Est GFR (Non-Af Amer) POC Glucose (mg/dL) Random Glucose Hemoglobin A1c Calcium Phosphorus Magnesium Iron TIBC % Saturation Ferritin Total Bilirubin AST ALT Alkaline Phosphatase Troponin I Total Protein Albumin Globulin Albumin/Globulin Ratio Triglycerides Cholesterol LDL Cholesterol Direct HDL Cholesterol Vitamin B12 Free T4 TSH 3rd Generation Urine Color Urine Clarity Urine pH Ur Specific [place] Urine Protein Urine Glucose (UA) Urine Ketones Urine Blood Urine Nitrate Urine Bilirubin Urine Urobilinogen Ur Leukocyte Esterase Urine WBC (Auto) Urine RBC (Auto) Ur Squamous Epith Cells RPR Hepatitis A IgM Ab Hep Bs Antigen Hep B Core IgM Ab Hepatitis C Antibody <Jose Martin Sandoval - Last Filed: 11/15/18 15:38> Meds - Medications Medications: Current Medications Acetaminophen (Tylenol 325mg Tab) 650 mg PO Q6 PRN PRN Reason: Fever >100.4 F Last Admin: 11/13/18 00:01 Dose: 650 mg Ferric Sodium Gluconate Complex (Ferrlecit) 125 mg IVPB DAILY [facility] Stop: 11/23/18 10:01 Last Admin: 11/15/18 09:21 Dose: 125 mg Ferrous Sulfate (Feosol Liq) 300 mg PO DAILY [facility] Last Admin: 11/15/18 09:23 Dose: 300 mg Heparin Sodium/Sodium Chloride (Heparin 67359 Units/250ml 1/2 Normal Saline) 25,000 units in 250 mls @ 6.891 mls/hr IV .Q24H PRN; Protocol PRN Reason: PROTOCOL Last Admin: 11/13/18 17:56 Dose: 14.88 units/kg/hr, 5.7 mls/hr Metronidazole (Flagyl) 500 mg in 100 mls @ 100 mls/hr IVPB Q8H [facility]; Protocol Last Admin: 11/15/18 12:09 Dose: 100 mls/hr Ceftriaxone Sodium 2 gm/ (Sodium Chloride) 100 mls @ 100 mls/hr IVPB DAILY [facility]; Protocol Last Admin: 11/15/18 10:39 Dose: 100 mls/hr Sodium Chloride (Sodium Chloride 0.9%) 1,000 mls @ 100 mls/hr IV .Q10H [facility] Last Admin: 11/15/18 07:52 Dose: 100 mls/hr Levetiracetam (Keppra) 500 mg PO BID [facility] Lorazepam (Ativan) 0.5 mg IVP Q6H PRN PRN Reason: Agitation Last Admin: 11/13/18 09:39 Dose: 0.5 mg Pantoprazole Sodium (Protonix Ec Tab) 40 mg PO DAILY [facility] Last Admin: 11/15/18 09:23 Dose: 40 mg Saccharomyces Boulardii (Florastor) 250 mg PO BID [facility] Last Admin: 11/15/18 09:23 Dose: 250 mg Warfarin Sodium (Coumadin) 3 mg PO 1800 [facility] Stop: 11/15/18 18:01 Results - Vital Signs Recent Vital Signs: Last Vital Signs Temp 98.6 F 11/15/18 12:00 Pulse 116 H 11/15/18 15:00 Resp 23 11/15/18 15:00 BP 100/61 11/15/18 12:10 Pulse Ox 100 11/15/18 15:00 - Labs Result Diagrams: 11/15/18 06:28 11/15/18 06:28 Labs: Laboratory Results - last 24 hr 11/12/18 11/12/18 11/14/18 19:42 19:42 06:00 WBC RBC Hgb Hct MCV MCH MCHC RDW Plt Count MPV Neut % (Auto) Lymph % (Auto) [place] % (Auto) Eos % (Auto) Baso % (Auto) Neut # (Auto) Lymph # (Auto) [place] # (Auto) Eos # (Auto) Baso # (Auto) PT INR APTT Sodium Potassium Chloride Carbon Dioxide Anion Gap BUN Creatinine Est GFR ( Amer) Est GFR (Non-Af Amer) POC Glucose (mg/dL) Random Glucose Hemoglobin A1c Calcium Phosphorus Magnesium Total Bilirubin AST ALT Alkaline Phosphatase Total Protein Albumin Globulin Albumin/Globulin Ratio Lyme Disease Screen <0.90 Giardia Antigen Not detected HIV 1&2 Antibody Screen HIV 1&2 Antibody Nonreactive 11/14/18 11/14/18 11/14/18 06:54 16:03 20:05 WBC RBC Hgb Hct MCV MCH MCHC RDW Plt Count MPV Neut % (Auto) Lymph % (Auto) [place] % (Auto) Eos % (Auto) Baso % (Auto) Neut # (Auto) Lymph # (Auto) [place] # (Auto) Eos # (Auto) Baso # (Auto) PT 19.7 H INR 1.8 APTT Sodium Potassium Chloride Carbon Dioxide Anion Gap BUN Creatinine Est GFR ( Amer) Est GFR (Non-Af Amer) POC Glucose (mg/dL) 97 Random Glucose Hemoglobin A1c Calcium Phosphorus Magnesium Total Bilirubin AST ALT Alkaline Phosphatase Total Protein Albumin Globulin Albumin/Globulin Ratio Lyme Disease Screen Giardia Antigen HIV 1&2 Antibody Screen Negative HIV 1&2 Antibody 11/14/18 11/15/18 11/15/18 21:15 06:28 06:28 WBC 3.8 L D RBC 4.51 Hgb 8.6 L Hct 29.8 L MCV 65.9 L MCH 19.0 L MCHC 28.8 L RDW 19.5 H Plt Count 277 MPV 8.1 Neut % (Auto) 45.7 L Lymph % (Auto) 43.0 H [place] % (Auto) 8.5 Eos % (Auto) 2.5 Baso % (Auto) 0.3 Neut # (Auto) 1.7 L Lymph # (Auto) 1.6 [place] # (Auto) 0.3 Eos # (Auto) 0.1 Baso # (Auto) 0.0 PT INR APTT Sodium 134 Potassium 4.3 Chloride 115 H Carbon Dioxide 14 L Anion Gap 10 BUN 2 L Creatinine 0.4 L Est GFR ( Amer) > 60 Est GFR (Non-Af Amer) > 60 POC Glucose (mg/dL) 344 H Random Glucose 69 Hemoglobin A1c Calcium 7.6 L Phosphorus 3.4 Magnesium 1.6 Total Bilirubin 0.3 AST 33 ALT 38 Alkaline Phosphatase 110 Total Protein 5.6 L Albumin 2.0 L Globulin 3.6 Albumin/Globulin Ratio 0.5 L Lyme Disease Screen Giardia Antigen HIV 1&2 Antibody Screen HIV 1&2 Antibody 11/15/18 11/15/18 11/15/18 06:28 06:28 07:22 WBC RBC Hgb Hct MCV MCH MCHC RDW Plt Count MPV Neut % (Auto) Lymph % (Auto) [place] % (Auto) Eos % (Auto) Baso % (Auto) Neut # (Auto) Lymph # (Auto) [place] # (Auto) Eos # (Auto) Baso # (Auto) PT 21.2 H INR 1.9 APTT 63 H D Sodium Potassium Chloride Carbon Dioxide Anion Gap BUN Creatinine Est GFR ( Amer) Est GFR (Non-Af Amer) POC Glucose (mg/dL) 73 Random Glucose Hemoglobin A1c 4.9 Calcium Phosphorus Magnesium Total Bilirubin AST ALT Alkaline Phosphatase Total Protein Albumin Globulin Albumin/Globulin Ratio Lyme Disease Screen Giardia Antigen HIV 1&2 Antibody Screen HIV 1&2 Antibody Assessment & Plan (1) Cerebral venous thrombosis of cortical vein Status: Acute Attending/Attestation - Attestation I have personally seen and examined this patient.: Yes I have fully participated in the care of the patient.: Yes I have reviewed all pertinent clinical information: Yes Notes (Text): I agree with the assessment and plan. The infarct appears to be due to an obstructed cortical vein from coagulation, possibly due to dehydration or another underlying coagulopathy. There is some GRE abnormality on MRI and shows some associated hemorrhage; however, the treatment remains anticoagulation to manage the underlying cause. We recommend starting therapeutic heparin drip with a plan to bridge over to coumadin with an INR of 2-3.
--- NOTE | 2018-11-12 14:54 | CP.PCM.CON ---
<Montez Bojorquez - Last Filed: 11/12/18 18:09> Meds Allergies/Adverse Reactions: Allergies Allergy/AdvReac Type Severity Reaction Status Date / Time No Known Allergies Allergy Unverified 11/11/18 23:27 - Medications Medications: Current Medications Sodium Chloride (Sodium Chloride 0.9%) 1,000 mls @ 100 mls/hr IV .Q10H DONTRELL Last Admin: 11/12/18 11:29 Dose: Not Given Heparin Sodium/Sodium Chloride (Heparin 37644 Units/250ml 1/2 Normal Saline) 25,000 units in 250 mls @ 6.891 mls/hr IV .Q24H PRN; Protocol PRN Reason: PROTOCOL Last Admin: 11/12/18 13:00 Dose: 18 units/kg/hr, 6.891 mls/hr Ciprofloxacin (Cipro 400mg/200ml Dsw) 400 mg in 200 mls @ 133 mls/hr IVPB Q12H DONTRELL; Protocol Metronidazole (Flagyl) 500 mg in 100 mls @ 100 mls/hr IVPB Q8H DONTRELL; Protocol Magnesium Sulfate/Dextrose (Magnesium Sulfate 1 Gm/100 Ml D5w) 1 gm in 100 mls @ 200 mls/hr IVPB Q30M DONTRELL Stop: 11/12/18 18:59 Pantoprazole Sodium (Protonix Ec Tab) 40 mg PO DAILY DONTRELL Saccharomyces Boulardii (Florastor) 250 mg PO BID DONTRELL Results - Vital Signs Recent Vital Signs: Last Vital Signs Temp 101.3 F H 11/12/18 18:00 Pulse 110 H 11/12/18 18:00 Resp 20 11/12/18 18:00 BP 108/57 L 11/12/18 18:00 Pulse Ox 99 11/12/18 18:00 - Labs Result Diagrams: 11/12/18 16:06 11/11/18 23:41 Labs: Laboratory Results - last 24 hr 11/11/18 11/11/18 11/11/18 23:24 23:41 23:41 WBC 8.6 RBC 5.41 H Hgb 9.8 L Hct 36.2 MCV 66.9 L MCH 18.1 L MCHC 27.0 L RDW 19.3 H Plt Count 268 MPV 8.7 Neut % (Auto) 73.5 Lymph % (Auto) 17.5 L [place] % (Auto) 8.6 Eos % (Auto) 0.3 Baso % (Auto) 0.1 Neut # (Auto) 6.3 Lymph # (Auto) 1.5 [place] # (Auto) 0.7 Eos # (Auto) 0.0 Baso # (Auto) 0.0 ESR PT 15.9 H INR 1.5 APTT 27 Sodium Potassium Chloride Carbon Dioxide Anion Gap BUN Creatinine Est GFR ( Amer) Est GFR (Non-Af Amer) POC Glucose (mg/dL) 85 Random Glucose Hemoglobin A1c Calcium Phosphorus Magnesium Iron TIBC % Saturation Ferritin Total Bilirubin AST ALT Alkaline Phosphatase Troponin I Total Protein Albumin Globulin Albumin/Globulin Ratio Triglycerides Cholesterol LDL Cholesterol Direct HDL Cholesterol Vitamin B12 Free T4 TSH 3rd Generation Urine Color Urine Clarity Urine pH Ur Specific [place] Urine Protein Urine Glucose (UA) Urine Ketones Urine Blood Urine Nitrate Urine Bilirubin Urine Urobilinogen Ur Leukocyte Esterase Urine WBC (Auto) Urine RBC (Auto) Ur Squamous Epith Cells RPR Hepatitis A IgM Ab Hep Bs Antigen Hep B Core IgM Ab Hepatitis C Antibody 11/11/18 11/11/18 11/12/18 23:41 23:41 12:01 WBC RBC Hgb Hct MCV MCH MCHC RDW Plt Count MPV Neut % (Auto) Lymph % (Auto) [place] % (Auto) Eos % (Auto) Baso % (Auto) Neut # (Auto) Lymph # (Auto) [place] # (Auto) Eos # (Auto) Baso # (Auto) ESR PT INR APTT Sodium 134 Potassium 3.6 Chloride 112 H Carbon Dioxide 11 L* Anion Gap 14 BUN 6 L Creatinine 0.6 L Est GFR ( Amer) > 60 Est GFR (Non-Af Amer) > 60 POC Glucose (mg/dL) Random Glucose 79 Hemoglobin A1c 4.9 Calcium 7.8 L Phosphorus Magnesium Iron TIBC % Saturation Ferritin Total Bilirubin 0.4 AST 54 H ALT 44 Alkaline Phosphatase 113 Troponin I < 0.0120 Total Protein 7.0 Albumin 2.8 L Globulin 4.2 H Albumin/Globulin Ratio 0.7 L Triglycerides 142 Cholesterol 91 LDL Cholesterol Direct 60 HDL Cholesterol 27 L Vitamin B12 Free T4 TSH 3rd Generation Urine Color Yellow Urine Clarity Hazy Urine pH 5.0 Ur Specific [place] 1.012 Urine Protein Negative Urine Glucose (UA) Normal Urine Ketones Negative Urine Blood Negative Urine Nitrate Negative Urine Bilirubin Negative Urine Urobilinogen Normal Ur Leukocyte Esterase Neg Urine WBC (Auto) 3 Urine RBC (Auto) < 1 Ur Squamous Epith Cells 1 RPR Hepatitis A IgM Ab Hep Bs Antigen Hep B Core IgM Ab Hepatitis C Antibody 11/12/18 11/12/18 11/12/18 15:59 15:59 15:59 WBC RBC Hgb Hct MCV MCH MCHC RDW Plt Count MPV Neut % (Auto) Lymph % (Auto) [place] % (Auto) Eos % (Auto) Baso % (Auto) Neut # (Auto) Lymph # (Auto) [place] # (Auto) Eos # (Auto) Baso # (Auto) ESR PT INR APTT Sodium Potassium Chloride Carbon Dioxide Anion Gap BUN Creatinine Est GFR ( Amer) Est GFR (Non-Af Amer) POC Glucose (mg/dL) Random Glucose Hemoglobin A1c Calcium Phosphorus 3.0 Magnesium 1.5 L Iron 24 L TIBC 204 L % Saturation 12 L Ferritin 4.2 Total Bilirubin AST ALT Alkaline Phosphatase Troponin I Total Protein Albumin Globulin Albumin/Globulin Ratio Triglycerides Cholesterol LDL Cholesterol Direct HDL Cholesterol Vitamin B12 301 Free T4 TSH 3rd Generation 1.03 Urine Color Urine Clarity Urine pH Ur Specific [place] Urine Protein Urine Glucose (UA) Urine Ketones Urine Blood Urine Nitrate Urine Bilirubin Urine Urobilinogen Ur Leukocyte Esterase Urine WBC (Auto) Urine RBC (Auto) Ur Squamous Epith Cells RPR Hepatitis A IgM Ab Negative Hep Bs Antigen Negative Hep B Core IgM Ab Negative Hepatitis C Antibody Negative 11/12/18 11/12/18 11/12/18 16:03 16:03 16:06 WBC RBC Hgb Hct MCV MCH MCHC RDW Plt Count MPV Neut % (Auto) Lymph % (Auto) [place] % (Auto) Eos % (Auto) Baso % (Auto) Neut # (Auto) Lymph # (Auto) [place] # (Auto) Eos # (Auto) Baso # (Auto) ESR 10 PT INR APTT Sodium Potassium Chloride Carbon Dioxide Anion Gap BUN Creatinine Est GFR ( Amer) Est GFR (Non-Af Amer) POC Glucose (mg/dL) Random Glucose Hemoglobin A1c Calcium Phosphorus Magnesium Iron TIBC % Saturation Ferritin Total Bilirubin AST ALT Alkaline Phosphatase Troponin I Total Protein Albumin Globulin Albumin/Globulin Ratio Triglycerides Cholesterol LDL Cholesterol Direct HDL Cholesterol Vitamin B12 Free T4 1.42 TSH 3rd Generation Urine Color Urine Clarity Urine pH Ur Specific [place] Urine Protein Urine Glucose (UA) Urine Ketones Urine Blood Urine Nitrate Urine Bilirubin Urine Urobilinogen Ur Leukocyte Esterase Urine WBC (Auto) Urine RBC (Auto) Ur Squamous Epith Cells RPR Nonreactive Hepatitis A IgM Ab Hep Bs Antigen Hep B Core IgM Ab Hepatitis C Antibody 11/12/18 16:06 WBC 6.6 RBC 4.63 Hgb 8.6 L Hct 29.8 L MCV 64.5 L D MCH 18.6 L MCHC 28.8 L RDW 18.5 H Plt Count 246 MPV 8.7 Neut % (Auto) 70.6 Lymph % (Auto) 20.6 [place] % (Auto) 8.6 Eos % (Auto) 0.1 Baso % (Auto) 0.1 Neut # (Auto) 4.7 Lymph # (Auto) 1.4 [place] # (Auto) 0.6 Eos # (Auto) 0.0 Baso # (Auto) 0.0 ESR PT INR APTT Sodium Potassium Chloride Carbon Dioxide Anion Gap BUN Creatinine Est GFR ( Amer) Est GFR (Non-Af Amer) POC Glucose (mg/dL) Random Glucose Hemoglobin A1c Calcium Phosphorus Magnesium Iron TIBC % Saturation Ferritin Total Bilirubin AST ALT Alkaline Phosphatase Troponin I Total Protein Albumin Globulin Albumin/Globulin Ratio Triglycerides Cholesterol LDL Cholesterol Direct HDL Cholesterol Vitamin B12 Free T4 TSH 3rd Generation Urine Color Urine Clarity Urine pH Ur Specific [place] Urine Protein Urine Glucose (UA) Urine Ketones Urine Blood Urine Nitrate Urine Bilirubin Urine Urobilinogen Ur Leukocyte Esterase Urine WBC (Auto) Urine RBC (Auto) Ur Squamous Epith Cells RPR Hepatitis A IgM Ab Hep Bs Antigen Hep B Core IgM Ab Hepatitis C Antibody Attending/Attestation - Attestation I have personally seen and examined this patient.: Yes I have fully participated in the care of the patient.: Yes I have reviewed all pertinent clinical information: Yes Notes (Text): 11/12/18 18:09 11/12/18 18:04 Patient seen and examined 23-year-old female presented with left-sided tingling sensation and weakness MRI of the head consistent with thrombus and cerebral artery and infarct Patient with persistent diarrhea and started on Cipro and Flagyl Stool for ova cyst and parasite Salmonella titer Infectious disease consult Rule out parasitic infection IV heparin Neurology workup <Jamaal Singh - Last Filed: 11/12/18 20:24> History of Present Illness - History of Present Illness History of Present Illness: Critical care consult note for Dr. Bojorquez. 23 F w/ no PMhx, recently return from [place] (10/31), suffering from episodes of diarrhea and vomiting while in [place] presented to ED w/ numbness, tingling, and slurred speech on 11/11. PT stated symptoms began about 5pm and around 10pm, patient fell and lost consciessness. Patient found to have R parietal lobe infaract on CT. Patient admitted to tele for monitoring. ICU consulted as MRI reveals cortical venous thrombus. Patient admits to taking an antibiotic in [place] for her diarrhea/ vomiting symptoms but is not sure which one. Patient denies any oral contraception use, denies tobacco use history. Patient currently denies headaches, vision changes, chest pain, SOB, nausea, vomiting, abdominal pain, fevers, chills. Patient admits to 20 lb weight loss over the past year as she just does not like to ear. PMHx: None Meds: Ofloxacin PSHx: None Allergies: none SHx: denies ETOH, tobacco, illicit drugs FHx: mother- diabetes, HTN; denies h/o CA, blood/clotting disorders Review of Systems - Constitutional Constitutional: absent: Chills, Daytime Sleepiness, Frequent Falls, Headache - EENT Eyes: absent: Blurred Vision Nose/Mouth/Throat: absent: Nasal Congestion, Lip Swelling - Cardiovascular Cardiovascular: absent: Chest Pain, Chest Pain at Rest - Respiratory Respiratory: absent: Cough, Dyspnea, Hemoptysis - Gastrointestinal Gastrointestinal: Diarrhea, Nausea, Vomiting. absent: Belching, Bloating, Constipation - Genitourinary Genitourinary: absent: Difficulty Urinating, Urinary Frequency, Urinary Urgency - Musculoskeletal Musculoskeletal: absent: Abnormal Gait, Arthralgias, Atrophy - Neurological Neurological: absent: Disequilibrium, Dizziness - Psychiatric Psychiatric: absent: Behavioral Changes, Confusion - Endocrine Endocrine: absent: Polyphagia, Polyuria Past Patient History - Infectious Disease Hx of Infectious Diseases: None - Tetanus Immunizations Tetanus Immunization: Unknown - Past Medical History & Family History Past Medical History?: Yes - Past Social History Smoking Status: Never Smoked - CARDIAC Hx Cardiac Disorders: No - PULMONARY Hx Respiratory Disorders: No - NEUROLOGICAL Hx Neurological Disorder: No - HEENT Hx HEENT Problems: No - RENAL Hx Chronic Kidney Disease: No - ENDOCRINE/METABOLIC Hx Endocrine Disorders: No - HEMATOLOGICAL/ONCOLOGICAL Hx Blood Disorders: No - INTEGUMENTARY Hx Dermatological Problems: No - MUSCULOSKELETAL/RHEUMATOLOGICAL Hx Musculoskeletal Disorders: No Hx Falls: Yes - GASTROINTESTINAL Hx Gastrointestinal Disorders: Yes Hx Diarrhea: Yes Hx Gastroesophageal Reflux: Yes - GENITOURINARY/GYNECOLOGICAL Hx Genitourinary Disorders: No - PSYCHIATRIC Hx Psychophysiologic Disorder: No Hx Substance Use: No - SURGICAL HISTORY Hx Surgeries: No - ANESTHESIA Hx Anesthesia: No Meds - Medications Medications: Current Medications Acetaminophen (Tylenol 325mg Tab) 650 mg PO ONCE ONE Stop: 11/12/18 15:01 Sodium Chloride (Sodium Chloride 0.9%) 1,000 mls @ 100 mls/hr IV .Q10H DONTRELL Last Admin: 11/12/18 11:29 Dose: Not Given Heparin Sodium/Sodium Chloride (Heparin 66192 Units/250ml 1/2 Normal Saline) 25,000 units in 250 mls @ 6.891 mls/hr IV .Q24H PRN; Protocol PRN Reason: PROTOCOL Last Admin: 11/12/18 13:00 Dose: 18 units/kg/hr, 6.891 mls/hr Saccharomyces Boulardii (Florastor) 250 mg PO BID [facility] Physical Exam - Constitutional Appears: Non-toxic, No Acute Distress - Head Exam Head Exam: NORMAL INSPECTION, NORMOCEPHALIC - Eye Exam Eye Exam: EOMI, Normal appearance Pupil Exam: NORMAL ACCOMODATION - ENT Exam ENT Exam: Mucous Membranes Moist - Respiratory Exam Respiratory Exam: Clear to Auscultation Bilateral, NORMAL BREATHING PATTERN. absent: Rales, Rhonchi, Wheezes - Cardiovascular Exam Cardiovascular Exam: +S1, +S2. absent: Systolic Murmur - GI/Abdominal Exam GI & Abdominal Exam: Normal Bowel Sounds, Soft - Extremities Exam Extremities exam: Positive for: normal inspection. Negative for: calf tender ness, pedal edema - Neurological Exam Neurological exam: Alert, Oriented x3 - Psychiatric Exam Psychiatric exam: Normal Affect, Normal Mood - Skin Skin Exam: Dry, Intact, Normal Color, Warm Results - Vital Signs Recent Vital Signs: Last Vital Signs Temp 101.8 F H 11/12/18 14:00 Pulse 100 H 11/12/18 14:40 Resp 20 11/12/18 14:40 BP 102/55 L 11/12/18 14:04 Pulse Ox 100 11/12/18 14:40 - Labs Result Diagrams: 11/12/18 16:06 11/11/18 23:41 Labs: Laboratory Results - last 24 hr 11/11/18 11/11/18 11/11/18 23:24 23:41 23:41 WBC 8.6 RBC 5.41 H Hgb 9.8 L Hct 36.2 MCV 66.9 L MCH 18.1 L MCHC 27.0 L RDW 19.3 H Plt Count 268 MPV 8.7 Neut % (Auto) 73.5 Lymph % (Auto) 17.5 L [place] % (Auto) 8.6 Eos % (Auto) 0.3 Baso % (Auto) 0.1 Neut # (Auto) 6.3 Lymph # (Auto) 1.5 [place] # (Auto) 0.7 Eos # (Auto) 0.0 Baso # (Auto) 0.0 PT 15.9 H INR 1.5 APTT 27 Sodium Potassium Chloride Carbon Dioxide Anion Gap BUN Creatinine Est GFR ( Amer) Est GFR (Non-Af Amer) POC Glucose (mg/dL) 85 Random Glucose Hemoglobin A1c Calcium Total Bilirubin AST ALT Alkaline Phosphatase Troponin I Total Protein Albumin Globulin Albumin/Globulin Ratio Triglycerides Cholesterol LDL Cholesterol Direct HDL Cholesterol Urine Color Urine Clarity Urine pH Ur Specific [place] Urine Protein Urine Glucose (UA) Urine Ketones Urine Blood Urine Nitrate Urine Bilirubin Urine Urobilinogen Ur Leukocyte Esterase Urine WBC (Auto) Urine RBC (Auto) Ur Squamous Epith Cells 11/11/18 11/11/18 11/12/18 23:41 23:41 12:01 WBC RBC Hgb Hct MCV MCH MCHC RDW Plt Count MPV Neut % (Auto) Lymph % (Auto) [place] % (Auto) Eos % (Auto) Baso % (Auto) Neut # (Auto) Lymph # (Auto) [place] # (Auto) Eos # (Auto) Baso # (Auto) PT INR APTT Sodium 134 Potassium 3.6 Chloride 112 H Carbon Dioxide 11 L* Anion Gap 14 BUN 6 L Creatinine 0.6 L Est GFR ( Amer) > 60 Est GFR (Non-Af Amer) > 60 POC Glucose (mg/dL) Random Glucose 79 Hemoglobin A1c 4.9 Calcium 7.8 L Total Bilirubin 0.4 AST 54 H ALT 44 Alkaline Phosphatase 113 Troponin I < 0.0120 Total Protein 7.0 Albumin 2.8 L Globulin 4.2 H Albumin/Globulin Ratio 0.7 L Triglycerides 142 Cholesterol 91 LDL Cholesterol Direct 60 HDL Cholesterol 27 L Urine Color Yellow Urine Clarity Hazy Urine pH 5.0 Ur Specific [place] 1.012 Urine Protein Negative Urine Glucose (UA) Normal Urine Ketones Negative Urine Blood Negative Urine Nitrate Negative Urine Bilirubin Negative Urine Urobilinogen Normal Ur Leukocyte Esterase Neg Urine WBC (Auto) 3 Urine RBC (Auto) < 1 Ur Squamous Epith Cells 1 Assessment & Plan - Assessment and Plan (Free Text) Assessment: 23F w/ recent travel to [place] (with 2 weeks of diarrhea) presents w/ code stroke, found to have R parietal infaract 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 Sandoval Cardiac - Tachycardic (130s) possible 10/30 to fever - continue IV NS @ 100ml/hr - tylenol for fever - troponin negative - continue to monitor vitals - Echo 11/12: Left ventricle normal in size, EF 60-65%, bubble study is suggestive of possible PFO, transmitral doppler flow pattern is Grade I abnormal relaxation pattern, no pericardial effusion. - F/u Venous lower extremity duplexes - F/u Cardiac consult, Dr. Jamey Martino - O2 100% on RA - CXR 11/11: no focal consolidation - no acute issues GI - Regular Diet - f/u fecal occult blood - GI ppx-- Protonix - stool studies as below for cause of diarrhea Renal - BUN/Cr 6/0.6 - Magnesium 1.5 - replete magnesium - continue NS at 100ml/hr - monitor CMP Heme - Microcytic Anemia - H/H 8.6/29.8 - MCV 64.5 - Iron 24, TIBC 204, % iron saturation 204, Ferritin 12 - replete with ferrus sulfate - monitor CBC - possibly hypercoagulabe - F/u hypercoag labs - F/u Dr. Garcia recs ID - Febrile (Tmax 101.8) - WBC 6.6 - f/u blood cx, urine cx, fecal cx - f/u fecal ova and parasites - f/u c.difficle - f/u RPR, HIV - f/u Lyme panel - start ciprofloxacin and flagyl - ID consult-- Dr. 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
--- NOTE | 2018-11-12 15:02 | CARD ---
APPROVED REPORT Date of service: 11/12/2018 EXAM: Two-dimensional and M-mode echocardiogram with Doppler and color Doppler bubble study INDICATION CVA/TIA Echo Enhancing Agent Agent/Amount Used: Definity 2D DIMENSIONS IVSd0.8 (0.7-1.1cm)Aortic Root (2D)2.6 (2.0-3.7cm) LVDd3.5 (3.9-5.9cm)PWd0.8 (0.7-1.1cm) LA [id number] (18-58mL)LVDs2.6 (2.5-4.0cm) FS (%) 25.3 %LVEF (%)50.9 (>50%) LVEF (Jones's)58.13 %IVC0.00 cm M-Mode DIMENSIONS RVDd2.20 (2.1-3.2cm)Left Atrium (MM)2.63 (2.5-4.0cm) IVSd0.72 (0.7-1.1cm)Aortic Root2.26 (2.2-3.7cm) LVDd3.94 (4.0-5.6cm)Aortic Cusp Exc.1.69 (1.5-2.0cm) PWd0.67 (0.7-1.1cm)FS (%) 32 % LVDs2.67 (2.0-3.8cm)LVEF (%)61 (>50%) Mitral Valve MV E Lyxuwois97.2cm/sMV A Jcdhiavx02.1cm/sE/A ratio0.7 TDI Lateral E' Peak V20.23cm/sMedial E' Peak V11.06cm/sE/Lateral E'3.2 E/Medial E'5.8 Tricuspid Valve TR Peak [id number]/sTR Peak [id number] LEFT VENTRICLE The left ventricle is normal size. There is normal left ventricular wall thickness. The Ejection Fraction is 60-65%. There is normal LV segmental wall motion. Transmitral Doppler flow pattern is Grade I-abnormal relaxation pattern. RIGHT VENTRICLE The right ventricle is normal size. The right ventricular systolic function is normal. ATRIA The left atrium size is normal. The right atrium size is normal. bubble study is suggestive of poss pfo. AORTIC VALVE The aortic valve is normal in structure. No aortic regurgitation is present. MITRAL VALVE The mitral valve is normal in structure. There is no mitral valve regurgitation noted. TRICUSPID VALVE The tricuspid valve is normal in structure. There is trace tricuspid regurgitation. PULMONIC VALVE The pulmonary valve is normal in structure. There is trace pulmonic valvular regurgitation. GREAT VESSELS The aortic root is normal in size. The IVC is normal in size and collapses >50% with inspiration. PERICARDIAL EFFUSION There is no pericardial effusion. <Conclusion> The left ventricle is normal size. The Ejection Fraction is 60-65%. Transmitral Doppler flow pattern is Grade I-abnormal relaxation pattern. bubble study is suggestive of poss pfo. The aortic root is normal in size. The IVC is normal in size and collapses >50% with inspiration. There is no pericardial effusion. suggest tanner.
[2018-11-12 16:30] LABS: IRON 24 ug/dL (37-170)
[2018-11-12 16:39] LABS: % IRON SATURATION 12 (20-55); TOTAL IRON BINDING CAPACITY 204 ug/dL (250-450)
[2018-11-12 17:00] LABS: HEPATITIS B SURFACE AG Negative (NEGATIVE)
[2018-11-12 17:04] LABS: FERRITIN 4.2 ng/mL
[2018-11-12 17:05] LABS: EOS % 0.1 % (0.0-4.0); LYMPH # 1.4 K/uL (1.0-4.3)
[2018-11-12 17:06] LABS: HEPATITIS A IGM NEGATIVE (NEGATIVE); HEPATITIS B CORE AB NEGATIVE (NEGATIVE)
[2018-11-12 17:15] LABS: BASO % 0.1 % (0.0-2.0); HEMOGLOBIN 8.6 g/dL (11.0-16.0); LYMPH % 20.6 % (20.0-40.0); MEAN CELL VOLUME 64.5 fL (81.0-99.0); MEAN CORPUSCULAR HEMOGLOBIN 18.6 pg (27.0-31.0); MEAN CORPUSCULAR HGB CONC 28.8 g/dL (33.0-37.0); MEAN PLATELET VOLUME 8.7 fL (7.2-11.7); MONO # 0.6 K/uL (0.0-0.8); MONO % 8.6 % (0.0-10.0); NEUT # 4.7 K/uL (1.8-7.0); NEUT % 70.6 % (50.0-75.0); RBC 4.63 Mil/uL (3.80-5.20); RED CELL DISTRIBUTION WIDTH 18.5 % (11.5-14.5); WHITE BLOOD COUNT 6.6 K/uL (4.8-10.8)
[2018-11-12 17:18] LABS: HEPATITIS C ANTIBODY NEGATIVE (NEGATIVE)
[2018-11-12] MEDS: Pantoprazole 40 mg EC Tab PO SCH (17:30)
[2018-11-12] MEDS: Ciprofloxacin 400mg/200ml D5W 400 MG/200 ML BAG IVPB SCH (19:00)
[2018-11-12] MEDS: Magnesium Sulfate 1 gm in D5W 1 GM/100 ML BAG IVPB SCH ×2 (19:00→19:15)
[2018-11-12] MEDS: metroNIDAZOLE IV 500 mg/100 ml 500 MG/100 ML BAG IVPB SCH (19:11)
[2018-11-12] MEDS ORDERED: Magnesium Sulfate 1 gm in D5W 1 GM/100 ML BAG IVPB SCH (20:00)
[2018-11-12] MEDS: Saccharomyces Boulardi 250 mg Cap PO SCH (22:11)
--- NOTE | 2018-11-12 22:20 | CP.PCM.CON ---
History of Present Illness - History of Present Illness History of Present Illness: CC: Cardiac Evaluation PFO with bubble cross over Patient is a 23 yo female with no known PMH who presents with L-sided weakness and numbness/tingling. Patient states that around 5PM, she started feeling pain in her L arm and then L leg. 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 She then started to feel numbness and tingling of her L arm. She went to bed around 9 PM and slept for approximately 1 hour. She attempted to get out of bed around 10 PM and fell onto the floor. She states she hit her head and lost consciousness. Her friend says she heard her fall and came into her room. She found her unresponsive on the floor. The friend was able to arouse her by shaking her. The friend says the patient appeared "shocked" and was unable to sit/stand up. She called 911 at that time. Presently, the patient says she has regained movement of her L leg. She says her L arm still fells week and she has numbness and tingling in her entire L arm. She also complains of mild LEMONS. Patient reports getting more frequent HAs over the past few weeks. She denies vision or hearing changes, including tinnitus. She denies chest pain, palpitations, SOB. She recently returned from [place] 10 days ago; she was there for one month. She states she had symptoms of "food poisoning" a few weeks ago, including N/V/D. She also describes recent early satiety and continued loose stools, approximately 2x/day. She denies blood in her stool. She has lost 22 lb unintentionally over the past 1 year. She went to the health clinic at her school who diagnosed her with acid reflux. They told her if symptoms do not resolve with antacid, then she should see GI. Patient also says she has not been urinating as frequently as she used to despite having dry mouth and drinking an increased amount of fluids. She denies dysuria or hematuria. Patient reports her LMP was 10/30-11/22. She says her menses is regular, once/month with normal flow. 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 absent: Chills, Fever - EENT Eyes: absent: Blurred Vision, Change in Vision, Diplopia Ears: absent: Decreased Hearing, Tinnitus - Cardiovascular Cardiovascular: Syncope. absent: Chest Pain, Diaphoresis, Lightheadedness, Palpitations, Pedal Edema - Respiratory Respiratory: absent: Cough, Dyspnea - Gastrointestinal Gastrointestinal: Diarrhea, Dyspepsia, Early Satiety, Heartburn. absent: Abdominal Pain, Constipation, Hematochezia, Melena, Nausea, Vomiting - Genitourinary Genitourinary: Other (decreased urinary frequency). absent: Dysuria, Hematuria - Reproductive: Female Reproductive:Female: Normal Menses - Musculoskeletal Musculoskeletal: As Per HPI, Numbness, Tingling. absent: Stiffness - Integumentary Integumentary: absent: Lesions, Rash - Neurological Neurological: As Per HPI, Numbness, Focal Weakness, Headaches, Paresthesias, Sensory Deficit, Syncope, Tingling. absent: Confusion, Convulsions, Dizziness, Frequent Falls, Tremor - Endocrine Endocrine: Polydipsia. absent: Palpitations, Polyphagia, Polyuria - Hematologic/Lymphatic Hematologic: absent: Easy Bleeding, Easy Bruising, Lymphadenopathy Physical Exam - Constitutional Appears: Non-toxic, No Acute Distress, Cachectic - Head Exam Head Exam: ATRAUMATIC, NORMAL INSPECTION - Eye Exam Eye Exam: EOMI, Normal appearance, PERRL - ENT Exam ENT Exam: Mucous Membranes Moist, Normal Exam - Neck Exam Neck exam: Positive for: Normal Inspection. Negative for: Lymphadenopathy, Tenderness, Thyromegaly - Respiratory Exam Respiratory Exam: Clear to Auscultation Bilateral, NORMAL BREATHING PATTERN. absent: Respiratory Distress - Cardiovascular Exam Cardiovascular Exam: RRR, +S1, +S2. absent: Rubs, Systolic Murmur - GI/Abdominal Exam GI & Abdominal Exam: Soft. absent: Distended, Tenderness - Extremities Exam Extremities exam: Positive for: normal inspection, pedal pulses present. Negative for: pedal edema, tenderness - Back Exam Back exam: NORMAL INSPECTION. absent: tenderness - Neurological Exam Neurological exam: Alert, CN II-XII Intact, Oriented x3 - Expanded Neurological Exam Expanded Patient oriented to: person, place, time Cranial nerves: EOM's Intact: Normal, Facial Palsey w/Forehead Movement: Normal, Facial Palsey w/o Forehead Movement: Normal, Facial Sensation: Normal, Gag Reflex: Normal, Nystagmus: Normal, Tongue Deviation: Normal Cerebellar Function: Finger to Nose: Normal Upper motor neuron: Pronator Drift: Normal Sensory exam: Lower Extremity 2 Point Discrimination: Normal, Lower Extremity Light Touch: Normal, Upper Extremity 2 Point Discrimination: Abnormal Left, Upper Extremity Light Touch: Abnormal Left Neuro motor strength exam: Left Upper Extremity: 4 (equal 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 lead refinery strength), Right Upper Extremity: 5, Left Lower Extremity: 5, Right Lower Extremity: 5 Coma Scale Eye Opening: SPONTANEOUS Coma Scale Motor Response: OBEYS COMMANDS Coma Scale Verbal: Oriented Coma Scale Total: 15 - Psychiatric Exam Psychiatric exam: Normal Affect, Normal Mood - Skin Skin Exam: Dry, Intact, Normal Color, Warm - EKG Data EKG Interpreted by: Myself EKG shows normal: Sinus rhythm Rate: Normal Assessment & Plan - Assessment and Plan (Free Text) Assessment: Past Patient History - Infectious Disease Hx of Infectious Diseases: None - Tetanus Immunizations Tetanus Immunization: Unknown - Past Medical History & Family History Past Medical History?: Yes - Past Social History Smoking Status: Never Smoked - CARDIAC Hx Cardiac Disorders: No - PULMONARY Hx Respiratory Disorders: No - NEUROLOGICAL Hx Neurological Disorder: No - HEENT Hx HEENT Problems: No - RENAL Hx Chronic Kidney Disease: No - ENDOCRINE/METABOLIC Hx Endocrine Disorders: No - HEMATOLOGICAL/ONCOLOGICAL Hx Blood Disorders: No - INTEGUMENTARY Hx Dermatological Problems: No - MUSCULOSKELETAL/RHEUMATOLOGICAL Hx Musculoskeletal Disorders: No Hx Falls: Yes - GASTROINTESTINAL Hx Gastrointestinal Disorders: Yes Hx Diarrhea: Yes Hx Gastroesophageal Reflux: Yes - GENITOURINARY/GYNECOLOGICAL Hx Genitourinary Disorders: No - PSYCHIATRIC Hx Psychophysiologic Disorder: No Hx Substance Use: No - SURGICAL HISTORY Hx Surgeries: No - ANESTHESIA Hx Anesthesia: No Meds Allergies/Adverse Reactions: Allergies Allergy/AdvReac Type Severity Reaction Status Date / Time No Known Allergies Allergy Unverified 11/11/18 23:27 - Medications Medications: Current Medications Acetaminophen (Tylenol 325mg Tab) 650 mg PO Q6 PRN PRN Reason: Fever >100.4 F Ferrous Sulfate (Feosol Liq) 300 mg PO DAILY [facility] Sodium Chloride (Sodium Chloride 0.9%) 1,000 mls @ 100 mls/hr IV .Q10H [facility] Last Admin: 11/12/18 22:11 Dose: 100 mls/hr Heparin Sodium/Sodium Chloride (Heparin 89650 Units/250ml 1/2 Normal Saline) 25,000 units in 250 mls @ 6.891 mls/hr IV .Q24H PRN; Protocol PRN Reason: PROTOCOL Last Titration: 11/12/18 21:25 Dose: 15 units/kg/hr, 5.742 mls/hr Ciprofloxacin (Cipro 400mg/200ml Dsw) 400 mg in 200 mls @ 133 mls/hr IVPB Q12H [facility]; Protocol Last Admin: 11/12/18 19:00 Dose: 133 mls/hr Metronidazole (Flagyl) 500 mg in 100 mls @ 100 mls/hr IVPB Q8H [facility]; Protocol Last Admin: 11/12/18 19:11 Dose: 100 mls/hr Pantoprazole Sodium (Protonix Ec Tab) 40 mg PO DAILY [facility] Last Admin: 11/12/18 17:30 Dose: Not Given Saccharomyces Boulardii (Florastor) 250 mg PO BID [facility] Last Admin: 11/12/18 22:11 Dose: Not Given Results - Vital Signs Recent Vital Signs: Last Vital Signs Temp 101.3 F H 11/12/18 18:00 Pulse 107 H 11/12/18 21:20 Resp 21 11/12/18 21:20 BP 98/56 L 11/12/18 20:41 Pulse Ox 100 11/12/18 21:20 - Labs Result Diagrams: 11/12/18 16:06 11/11/18 23:41 Labs: Laboratory Results - last 24 hr 11/11/18 11/11/18 11/11/18 23:24 23:41 23:41 WBC 8.6 RBC 5.41 H Hgb 9.8 L Hct 36.2 MCV 66.9 L MCH 18.1 L MCHC 27.0 L RDW 19.3 H Plt Count 268 MPV 8.7 Neut % (Auto) 73.5 Lymph % (Auto) 17.5 L [place] % (Auto) 8.6 Eos % (Auto) 0.3 Baso % (Auto) 0.1 Neut # (Auto) 6.3 Lymph # (Auto) 1.5 [place] # (Auto) 0.7 Eos # (Auto) 0.0 Baso # (Auto) 0.0 ESR PT 15.9 H INR 1.5 APTT 27 Sodium Potassium Chloride Carbon Dioxide Anion Gap BUN Creatinine Est GFR ( Amer) Est GFR (Non-Af Amer) POC Glucose (mg/dL) 85 Random Glucose Hemoglobin A1c Calcium Phosphorus Magnesium Iron TIBC % Saturation Ferritin Total Bilirubin AST ALT Alkaline Phosphatase Troponin I Total Protein Albumin Globulin Albumin/Globulin Ratio Triglycerides Cholesterol LDL Cholesterol Direct HDL Cholesterol Vitamin B12 Free T4 TSH 3rd Generation Urine Color Urine Clarity Urine pH Ur Specific [place] Urine Protein Urine Glucose (UA) Urine Ketones Urine Blood Urine Nitrate Urine Bilirubin Urine Urobilinogen Ur Leukocyte Esterase Urine WBC (Auto) Urine RBC (Auto) Ur Squamous Epith Cells RPR Hepatitis A IgM Ab Hep Bs Antigen Hep B Core IgM Ab Hepatitis C Antibody 11/11/18 11/11/18 11/12/18 23:41 23:41 12:01 WBC RBC Hgb Hct MCV MCH MCHC RDW Plt Count MPV Neut % (Auto) Lymph % (Auto) [place] % (Auto) Eos % (Auto) Baso % (Auto) Neut # (Auto) Lymph # (Auto) [place] # (Auto) Eos # (Auto) Baso # (Auto) ESR PT INR APTT Sodium 134 Potassium 3.6 Chloride 112 H Carbon Dioxide 11 L* Anion Gap 14 BUN 6 L Creatinine 0.6 L Est GFR ( Amer) > 60 Est GFR (Non-Af Amer) > 60 POC Glucose (mg/dL) Random Glucose 79 Hemoglobin A1c 4.9 Calcium 7.8 L Phosphorus Magnesium Iron TIBC % Saturation Ferritin Total Bilirubin 0.4 AST 54 H ALT 44 Alkaline Phosphatase 113 Troponin I < 0.0120 Total Protein 7.0 Albumin 2.8 L Globulin 4.2 H Albumin/Globulin Ratio 0.7 L Triglycerides 142 Cholesterol 91 LDL Cholesterol Direct 60 HDL Cholesterol 27 L Vitamin B12 Free T4 TSH 3rd Generation Urine Color Yellow Urine Clarity Hazy Urine pH 5.0 Ur Specific [place] 1.012 Urine Protein Negative Urine Glucose (UA) Normal Urine Ketones Negative Urine Blood Negative Urine Nitrate Negative Urine Bilirubin Negative Urine Urobilinogen Normal Ur Leukocyte Esterase Neg Urine WBC (Auto) 3 Urine RBC (Auto) < 1 Ur Squamous Epith Cells 1 RPR Hepatitis A IgM Ab Hep Bs Antigen Hep B Core IgM Ab Hepatitis C Antibody 11/12/18 11/12/18 11/12/18 15:59 15:59 15:59 WBC RBC Hgb Hct MCV MCH MCHC RDW Plt Count MPV Neut % (Auto) Lymph % (Auto) [place] % (Auto) Eos % (Auto) Baso % (Auto) Neut # (Auto) Lymph # (Auto) [place] # (Auto) Eos # (Auto) Baso # (Auto) ESR PT INR APTT Sodium Potassium Chloride Carbon Dioxide Anion Gap BUN Creatinine Est GFR ( Amer) Est GFR (Non-Af Amer) POC Glucose (mg/dL) Random Glucose Hemoglobin A1c Calcium Phosphorus 3.0 Magnesium 1.5 L Iron 24 L TIBC 204 L % Saturation 12 L Ferritin 4.2 Total Bilirubin AST ALT Alkaline Phosphatase Troponin I Total Protein Albumin Globulin Albumin/Globulin Ratio Triglycerides Cholesterol LDL Cholesterol Direct HDL Cholesterol Vitamin B12 301 Free T4 TSH 3rd Generation 1.03 Urine Color Urine Clarity Urine pH Ur Specific [place] Urine Protein Urine Glucose (UA) Urine Ketones Urine Blood Urine Nitrate Urine Bilirubin Urine Urobilinogen Ur Leukocyte Esterase Urine WBC (Auto) Urine RBC (Auto) Ur Squamous Epith Cells RPR Hepatitis A IgM Ab Negative Hep Bs Antigen Negative Hep B Core IgM Ab Negative Hepatitis C Antibody Negative 11/12/18 11/12/18 11/12/18 16:03 16:03 16:06 WBC RBC Hgb Hct MCV MCH MCHC RDW Plt Count MPV Neut % (Auto) Lymph % (Auto) [place] % (Auto) Eos % (Auto) Baso % (Auto) Neut # (Auto) Lymph # (Auto) [place] # (Auto) Eos # (Auto) Baso # (Auto) ESR 10 PT INR APTT Sodium Potassium Chloride Carbon Dioxide Anion Gap BUN Creatinine Est GFR ( Amer) Est GFR (Non-Af Amer) POC Glucose (mg/dL) Random Glucose Hemoglobin A1c Calcium Phosphorus Magnesium Iron TIBC % Saturation Ferritin Total Bilirubin AST ALT Alkaline Phosphatase Troponin I Total Protein Albumin Globulin Albumin/Globulin Ratio Triglycerides Cholesterol LDL Cholesterol Direct HDL Cholesterol Vitamin B12 Free T4 1.42 TSH 3rd Generation Urine Color Urine Clarity Urine pH Ur Specific [place] Urine Protein Urine Glucose (UA) Urine Ketones Urine Blood Urine Nitrate Urine Bilirubin Urine Urobilinogen Ur Leukocyte Esterase Urine WBC (Auto) Urine RBC (Auto) Ur Squamous Epith Cells RPR Nonreactive Hepatitis A IgM Ab Hep Bs Antigen Hep B Core IgM Ab Hepatitis C Antibody 11/12/18 11/12/18 16:06 19:42 WBC 6.6 RBC 4.63 Hgb 8.6 L Hct 29.8 L MCV 64.5 L D MCH 18.6 L MCHC 28.8 L RDW 18.5 H Plt Count 246 MPV 8.7 Neut % (Auto) 70.6 Lymph % (Auto) 20.6 [place] % (Auto) 8.6 Eos % (Auto) 0.1 Baso % (Auto) 0.1 Neut # (Auto) 4.7 Lymph # (Auto) 1.4 [place] # (Auto) 0.6 Eos # (Auto) 0.0 Baso # (Auto) 0.0 ESR PT INR APTT 320 H* D Sodium Potassium Chloride Carbon Dioxide Anion Gap BUN Creatinine Est GFR ( Amer) Est GFR (Non-Af Amer) POC Glucose (mg/dL) Random Glucose Hemoglobin A1c Calcium Phosphorus Magnesium Iron TIBC % Saturation Ferritin Total Bilirubin AST ALT Alkaline Phosphatase Troponin I Total Protein Albumin Globulin Albumin/Globulin Ratio Triglycerides Cholesterol LDL Cholesterol Direct HDL Cholesterol Vitamin B12 Free T4 TSH 3rd Generation Urine Color Urine Clarity Urine pH Ur Specific [place] Urine Protein Urine Glucose (UA) Urine Ketones Urine Blood Urine Nitrate Urine Bilirubin Urine Urobilinogen Ur Leukocyte Esterase Urine WBC (Auto) Urine RBC (Auto) Ur Squamous Epith Cells RPR Hepatitis A IgM Ab Hep Bs Antigen Hep B Core IgM Ab Hepatitis C Antibody Assessment & Plan - Assessment and Plan (Free Text) Assessment: 23F w/ recent travel to [place] (with 2 weeks of diarrhea) presents w/ code stroke, found to have R parietal infaract 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 Sandoval Cardiac - Tachycardic (130s) possible 2/2 to fever - continue IV NS @ 100ml/hr - tylenol for fever - troponin negative - continue to monitor vitals - Echo 11/12: Left ventricle normal in size, EF 60-65%, bubble study is suggestive of possible PFO, transmitral doppler flow pattern is Grade I abnormal relaxation pattern, no pericardial effusion. - F/u Venous lower extremity duplexes Pulm - O2 100% on RA - CXR 11/11: no focal consolidation - no acute issues GI - Regular Diet - f/u fecal occult blood - GI ppx-- Protonix - stool studies as below for cause of diarrhea Renal - BUN/Cr 6/0.6 - Magnesium 1.5 - replete magnesium - continue NS at 100ml/hr - monitor CMP Heme - Microcytic Anemia - H/H 8.6/29.8 - MCV 64.5 - Iron 24, TIBC 204, % iron saturation 204, Ferritin 12 - replete with ferrus sulfate - monitor CBC - possibly hypercoagulabe - F/u hypercoag labs - F/u Dr. Jose ford ID - Febrile (Tmax 101.8) - WBC 6.6 - f/u blood cx, urine cx, fecal cx - f/u fecal ova and parasites - f/u c.difficle - f/u RPR, HIV - f/u Lyme panel - start ciprofloxacin and flagyl - ID consult-- Dr. Barth PPx - Tylenol PRN for fever - DVT ppx-- on Heparin drip - GI ppx-- protonix - F/u Instructional Specialist refcs, BMI of 14 - F/u pt/ot eval
[2018-11-13] MEDS: metroNIDAZOLE IV 500 mg/100 ml 500 MG/100 ML BAG IVPB SCH ×3 (02:12→17:51)
[2018-11-13] MEDS: Sodium Chloride 0.9% 1,000 ML IV SCH (05:52)
[2018-11-13] MEDS: Ciprofloxacin 400mg/200ml D5W 400 MG/200 ML BAG IVPB SCH ×2 (05:54→19:00)
[2018-11-13 06:27] LABS: ALB/GLOB RATIO 0.6 (1.0-2.1); ALBUMIN 2.1 g/dL (3.5-5.0); ALT/SGPT 41 U/L (9-52); AST/SGOT 37 U/L (14-36); BLOOD UREA NITROGEN 6 mg/dL (7-17); CALCIUM 7.1 mg/dl (8.6-10.4); GFR NON-AFRICAN AMERICAN > 60
[2018-11-13 06:37] LABS: BASO % 0.3 % (0.0-2.0); EOS % 0.5 % (0.0-4.0); HEMOGLOBIN 8.5 g/dL (11.0-16.0); LYMPH # 2.1 K/uL (1.0-4.3); LYMPH % 23.1 % (20.0-40.0); MEAN CELL VOLUME 64.2 fL (81.0-99.0); MEAN CORPUSCULAR HGB CONC 28.1 g/dL (33.0-37.0); MEAN PLATELET VOLUME 8.6 fL (7.2-11.7); MONO % 10.7 % (0.0-10.0); NEUT # 5.8 K/uL (1.8-7.0); NEUT % 65.4 % (50.0-75.0); NRBC % 0.1 % (0.0-2.0); RBC 4.69 Mil/uL (3.80-5.20); RED CELL DISTRIBUTION WIDTH 18.7 % (11.5-14.5); WHITE BLOOD COUNT 8.9 K/uL (4.8-10.8)
[2018-11-13] MEDS ORDERED: Sodium Chloride 0.9% 1,000 ML IV ONE (09:14)
[2018-11-13] MEDS ORDERED: Potassium Chloride 20 mEq/15 ml LIQ UD PO ONE (09:30)
[2018-11-13] MEDS: Saccharomyces Boulardi 250 mg Cap PO SCH ×2 (09:33→17:52)
[2018-11-13] MEDS: Ferrous Sulfate 300 mg/5 mL Liq UD PO SCH (09:33)
[2018-11-13] MEDS: Pantoprazole 40 mg EC Tab PO SCH (09:33)
[2018-11-13] MEDS ORDERED: Sodium Chloride 0.9% 1,000 ML IV SCH (10:15)
--- NOTE | 2018-11-13 10:24 | CT ---
Date of service: 11/13/2018 PROCEDURE: CT HEAD WITHOUT CONTRAST. HISTORY: r/o change r/o bleed COMPARISON: Comparison is made to the previous study dated 11/11/2018 previous MRI of the brain dated 11/12/2018 TECHNIQUE: Axial computed tomography images were obtained through the head/brain without intravenous contrast. Radiation dose: Total exam DLP = 822.99 mGy-cm. This CT exam was performed using one or more of the following dose reduction techniques: Automated exposure control, adjustment of the mA and/or kV according to patient size, and/or use of iterative reconstruction technique. FINDINGS: HEMORRHAGE: No definite evidence of a new intracranial hemorrhage. Again noted are small foci of extra-axial high attenuation at the right aspect of the vertex adjacent to the midline which have not significantly changed since the prior study likely represent dural calcification BRAIN: Interval increase in the size of the previously seen focal heterogeneous low attenuation at the superior right frontal parietal region which may represent acute infarct. There is possible punctate foci of slightly high attenuation in the central portion of this hypodensity may represent petechial hemorrhage. No atrophy or chronic microvascular ischemic changes. VENTRICLES: Unremarkable. No hydrocephalus. CALVARIUM: Unremarkable. PARANASAL SINUSES: Unremarkable as visualized. No significant inflammatory changes. MASTOID AIR CELLS: Unremarkable as visualized. No inflammatory changes. OTHER FINDINGS: None. IMPRESSION: Interval increase in the size of the previously seen vague hypodense area in the superior right frontal parietal region likely represent acute infarct . no definite evidence of a new hematoma or significant parenchymal hemorrhage. However the possibility of petechial hemorrhage in the infarcted area is not totally excluded. Close follow-up reassessment is suggested. No evidence of significant mass effect or midline shift. Preliminary report contains concordant findings was submitted by [facility] Radiology.
--- NOTE | 2018-11-13 12:35 | CP.PCM.PN ---
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 currently on IV heparin Objective - Vital Signs/Intake and Output Vital Signs (last 24 hours): Temp Pulse Resp BP Pulse Ox 98.2 F 96 H 18 104/60 100 11/13/18 08:00 11/13/18 12:00 11/13/18 12:00 11/13/18 11:06 11/13/18 12:00 Intake and Output: 11/13/18 11/13/18 06:59 18:59 Intake Total 2102.3 2948.5 Output Total 800 800 Balance 1302.3 2148.5 - Medications Medications: Current Medications Acetaminophen (Tylenol 325mg Tab) 650 mg PO Q6 PRN PRN Reason: Fever >100.4 F Last Admin: 11/13/18 00:01 Dose: 650 mg Ferrous Sulfate (Feosol Liq) 300 mg PO DAILY [facility] Last Admin: 11/13/18 09:33 Dose: 300 mg Sodium Chloride (Sodium Chloride 0.9%) 1,000 mls @ 100 mls/hr IV .Q10H [facility] Last Admin: 11/13/18 05:52 Dose: Not Given Heparin Sodium/Sodium Chloride (Heparin 24725 Units/250ml 1/2 Normal Saline) 25,000 units in 250 mls @ 6.891 mls/hr IV .Q24H PRN; Protocol PRN Reason: PROTOCOL Last Titration: 11/13/18 08:00 Dose: 14.88 units/kg/hr, 5.7 mls/hr Ciprofloxacin (Cipro 400mg/200ml Dsw) 400 mg in 200 mls @ 133 mls/hr IVPB Q12H [facility]; Protocol Last Admin: 11/13/18 05:54 Dose: 133 mls/hr Metronidazole (Flagyl) 500 mg in 100 mls @ 100 mls/hr IVPB Q8H [facility]; Protocol Last Admin: 11/13/18 11:56 Dose: 100 mls/hr Lorazepam (Ativan) 0.5 mg IVP Q6H PRN PRN Reason: Agitation Last Admin: 11/13/18 09:39 Dose: 0.5 mg Pantoprazole Sodium (Protonix Ec Tab) 40 mg PO DAILY [facility] Last Admin: 11/13/18 09:33 Dose: 40 mg Saccharomyces Sandhya (Florastor) 250 mg PO BID [facility] Last Admin: 11/13/18 09:33 Dose: 250 mg - Labs Labs: 11/13/18 05:47 11/13/18 05:47 PT 15.9 SECONDS (9.7-12.2) H 11/11/18 23:41 INR 1.5 11/11/18 23:41 APTT 60 SECONDS (21-34) H D 11/13/18 07:01 - Head Exam Head Exam: NORMAL INSPECTION - Eye Exam Eye Exam: EOMI Pupil Exam: PERRL - ENT Exam ENT Exam: Mucous Membranes Moist - Respiratory Exam Respiratory Exam: NORMAL BREATHING PATTERN. absent: Chest Wall Tenderness, Decreased Breath Sounds, Rhonchi, Wheezes, Respiratory Distress, Stridor - Cardiovascular Exam Cardiovascular Exam: REGULAR RHYTHM, +S1, +S2 - GI/Abdominal Exam GI & Abdominal Exam: Soft, Normal Bowel Sounds. 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 Sandoval *Patient had periodic left neck contraction X2, obtain video EEG and ativan PRN ?seizures, will start keppra if repeat seizure like activity -hematology consult for hypercoagulable state -continue empirical abx as per ID -continue dvt/pud ppx -MRI reveals hermorrhage and CT reveals no ICH, with patient getting IV heparin, benefits more than risk of gross ICH. monitor closely IF any change in mental status will obtain CT head -q1hrs neuro checks
--- NOTE | 2018-11-13 14:18 | CP.PCM.CON ---
History of Present Illness - History of Present Illness History of Present Illness: dictated Past Patient History - Infectious Disease Hx of Infectious Diseases: None - Tetanus Immunizations Tetanus Immunization: Unknown - Past Medical History & Family History Past Medical History?: Yes - Past Social History Smoking Status: Never Smoked - CARDIAC Hx Cardiac Disorders: No - PULMONARY Hx Respiratory Disorders: No - NEUROLOGICAL Hx Neurological Disorder: No - HEENT Hx HEENT Problems: No - RENAL Hx Chronic Kidney Disease: No - ENDOCRINE/METABOLIC Hx Endocrine Disorders: No - HEMATOLOGICAL/ONCOLOGICAL Hx Blood Disorders: No - INTEGUMENTARY Hx Dermatological Problems: No - MUSCULOSKELETAL/RHEUMATOLOGICAL Hx Musculoskeletal Disorders: No Hx Falls: Yes - GASTROINTESTINAL Hx Gastrointestinal Disorders: Yes Hx Diarrhea: Yes Hx Gastroesophageal Reflux: Yes - GENITOURINARY/GYNECOLOGICAL Hx Genitourinary Disorders: No - PSYCHIATRIC Hx Psychophysiologic Disorder: No Hx Substance Use: No - SURGICAL HISTORY Hx Surgeries: No - ANESTHESIA Hx Anesthesia: No Meds Allergies/Adverse Reactions: Allergies Allergy/AdvReac Type Severity Reaction Status Date / Time No Known Allergies Allergy Unverified 11/11/18 23:27 - Medications Medications: Current Medications Acetaminophen (Tylenol 325mg Tab) 650 mg PO Q6 PRN PRN Reason: Fever >100.4 F Last Admin: 11/13/18 00:01 Dose: 650 mg Ferrous Sulfate (Feosol Liq) 300 mg PO DAILY [facility] Last Admin: 11/13/18 09:33 Dose: 300 mg Sodium Chloride (Sodium Chloride 0.9%) 1,000 mls @ 100 mls/hr IV .Q10H [facility] Last Admin: 11/13/18 05:52 Dose: Not Given Heparin Sodium/Sodium Chloride (Heparin 09608 Units/250ml 1/2 Normal Saline) 25,000 units in 250 mls @ 6.891 mls/hr IV .Q24H PRN; Protocol PRN Reason: PROTOCOL Last Titration: 11/13/18 08:00 Dose: 14.88 units/kg/hr, 5.7 mls/hr Ciprofloxacin (Cipro 400mg/200ml Dsw) 400 mg in 200 mls @ 133 mls/hr IVPB Q12H [facility]; Protocol Last Admin: 11/13/18 05:54 Dose: 133 mls/hr Metronidazole (Flagyl) 500 mg in 100 mls @ 100 mls/hr IVPB Q8H [facility]; Protocol Last Admin: 11/13/18 11:56 Dose: 100 mls/hr Lorazepam (Ativan) 0.5 mg IVP Q6H PRN PRN Reason: Agitation Last Admin: 11/13/18 09:39 Dose: 0.5 mg Pantoprazole Sodium (Protonix Ec Tab) 40 mg PO DAILY [facility] Last Admin: 11/13/18 09:33 Dose: 40 mg Saccharomyces Boulardii (Florastor) 250 mg PO BID [facility] Last Admin: 11/13/18 09:33 Dose: 250 mg Results - Vital Signs Recent Vital Signs: Last Vital Signs Temp 98.9 F 11/13/18 12:00 Pulse 102 H 11/13/18 12:07 Resp 18 11/13/18 12:07 BP 92/50 L 11/13/18 12:07 Pulse Ox 100 11/13/18 12:07 - Labs Result Diagrams: 11/13/18 05:47 11/13/18 05:47 Labs: Laboratory Results - last 24 hr 11/12/18 11/12/18 11/12/18 15:59 15:59 15:59 WBC RBC Hgb Hct MCV MCH MCHC RDW Plt Count MPV Neut % (Auto) Lymph % (Auto) Ogle % (Auto) Eos % (Auto) Baso % (Auto) Neut # (Auto) Lymph # (Auto) Ogle # (Auto) Eos # (Auto) Baso # (Auto) ESR APTT Sodium Potassium Chloride Carbon Dioxide Anion Gap BUN Creatinine Est GFR ( Amer) Est GFR (Non-Af Amer) POC Glucose (mg/dL) Random Glucose Calcium Phosphorus 3.0 Magnesium 1.5 L Iron 24 L TIBC 204 L % Saturation 12 L Ferritin 4.2 Total Bilirubin AST ALT Alkaline Phosphatase C-Reactive Protein 9.80 Total Protein Albumin Globulin Albumin/Globulin Ratio Vitamin B12 301 Free T4 TSH 3rd Generation 1.03 RPR Hepatitis A IgM Ab Negative Hep Bs Antigen Negative Hep B Core IgM Ab Negative Hepatitis C Antibody Negative 11/12/18 11/12/18 11/12/18 16:03 16:03 16:06 WBC RBC Hgb Hct MCV MCH MCHC RDW Plt Count MPV Neut % (Auto) Lymph % (Auto) Ogle % (Auto) Eos % (Auto) Baso % (Auto) Neut # (Auto) Lymph # (Auto) Ogle # (Auto) Eos # (Auto) Baso # (Auto) ESR 10 APTT Sodium Potassium Chloride Carbon Dioxide Anion Gap BUN Creatinine Est GFR ( Amer) Est GFR (Non-Af Amer) POC Glucose (mg/dL) Random Glucose Calcium Phosphorus Magnesium Iron TIBC % Saturation Ferritin Total Bilirubin AST ALT Alkaline Phosphatase C-Reactive Protein Total Protein Albumin Globulin Albumin/Globulin Ratio Vitamin B12 Free T4 1.42 TSH 3rd Generation RPR Nonreactive Hepatitis A IgM Ab Hep Bs Antigen Hep B Core IgM Ab Hepatitis C Antibody 11/12/18 11/12/18 11/12/18 16:06 19:42 22:48 WBC 6.6 RBC 4.63 Hgb 8.6 L Hct 29.8 L MCV 64.5 L D MCH 18.6 L MCHC 28.8 L RDW 18.5 H Plt Count 246 MPV 8.7 Neut % (Auto) 70.6 Lymph % (Auto) 20.6 Ogle % (Auto) 8.6 Eos % (Auto) 0.1 Baso % (Auto) 0.1 Neut # (Auto) 4.7 Lymph # (Auto) 1.4 Ogle # (Auto) 0.6 Eos # (Auto) 0.0 Baso # (Auto) 0.0 ESR APTT 320 H* D Sodium Potassium Chloride Carbon Dioxide Anion Gap BUN Creatinine Est GFR ( Amer) Est GFR (Non-Af Amer) POC Glucose (mg/dL) 78 Random Glucose Calcium Phosphorus Magnesium Iron TIBC % Saturation Ferritin Total Bilirubin AST ALT Alkaline Phosphatase C-Reactive Protein Total Protein Albumin Globulin Albumin/Globulin Ratio Vitamin B12 Free T4 TSH 3rd Generation RPR Hepatitis A IgM Ab Hep Bs Antigen Hep B Core IgM Ab Hepatitis C Antibody 11/13/18 11/13/18 11/13/18 02:47 04:51 05:47 WBC 8.9 RBC 4.69 Hgb 8.5 L Hct 30.1 L MCV 64.2 L MCH 18.0 L MCHC 28.1 L RDW 18.7 H Plt Count 243 MPV 8.6 Neut % (Auto) 65.4 Lymph % (Auto) 23.1 Ogle % (Auto) 10.7 H Eos % (Auto) 0.5 Baso % (Auto) 0.3 Neut # (Auto) 5.8 Lymph # (Auto) 2.1 Ogle # (Auto) 1.0 H Eos # (Auto) 0.0 Baso # (Auto) 0.0 ESR APTT > 400 H* D 141 H* D Sodium Potassium Chloride Carbon Dioxide Anion Gap BUN Creatinine Est GFR ( Amer) Est GFR (Non-Af Amer) POC Glucose (mg/dL) Random Glucose Calcium Phosphorus Magnesium Iron TIBC % Saturation Ferritin Total Bilirubin AST ALT Alkaline Phosphatase C-Reactive Protein Total Protein Albumin Globulin Albumin/Globulin Ratio Vitamin B12 Free T4 TSH 3rd Generation RPR Hepatitis A IgM Ab Hep Bs Antigen Hep B Core IgM Ab Hepatitis C Antibody 11/13/18 11/13/18 11/13/18 05:47 07:01 08:26 WBC RBC Hgb Hct MCV MCH MCHC RDW Plt Count MPV Neut % (Auto) Lymph % (Auto) Ogle % (Auto) Eos % (Auto) Baso % (Auto) Neut # (Auto) Lymph # (Auto) Ogle # (Auto) Eos # (Auto) Baso # (Auto) ESR APTT 60 H D Sodium 134 Potassium 3.2 L Chloride 108 H Carbon Dioxide 18 L Anion Gap 11 BUN 6 L Creatinine 0.4 L Est GFR ( Amer) > 60 Est GFR (Non-Af Amer) > 60 POC Glucose (mg/dL) 86 Random Glucose 71 Calcium 7.1 L Phosphorus 3.2 Magnesium 2.0 Iron TIBC % Saturation Ferritin Total Bilirubin 0.7 AST 37 H D ALT 41 Alkaline Phosphatase 96 C-Reactive Protein Total Protein 5.6 L Albumin 2.1 L D Globulin 3.5 Albumin/Globulin Ratio 0.6 L Vitamin B12 Free T4 TSH 3rd Generation RPR Hepatitis A IgM Ab Hep Bs Antigen Hep B Core IgM Ab Hepatitis C Antibody 11/13/18 11:38 WBC RBC Hgb Hct MCV MCH MCHC RDW Plt Count MPV Neut % (Auto) Lymph % (Auto) Ogle % (Auto) Eos % (Auto) Baso % (Auto) Neut # (Auto) Lymph # (Auto) Ogle # (Auto) Eos # (Auto) Baso # (Auto) ESR APTT Sodium Potassium Chloride Carbon Dioxide Anion Gap BUN Creatinine Est GFR ( Amer) Est GFR (Non-Af Amer) POC Glucose (mg/dL) 79 Random Glucose Calcium Phosphorus Magnesium Iron TIBC % Saturation Ferritin Total Bilirubin AST ALT Alkaline Phosphatase C-Reactive Protein Total Protein Albumin Globulin Albumin/Globulin Ratio Vitamin B12 Free T4 TSH 3rd Generation RPR Hepatitis A IgM Ab Hep Bs Antigen Hep B Core IgM Ab Hepatitis C Antibody
--- NOTE | 2018-11-13 15:15 | CP.CCUPN ---
CCU Objective - Vital Signs / Intake & Output Vital Signs (Last 4 hours): Vital Signs Temp Pulse Resp BP Pulse Ox 11/13/18 12:07 102 H 18 92/50 L 100 11/13/18 12:00 98.9 F 96 H 18 100 Intake and Output (Last 8hrs): Intake & Output 11/13/18 11/13/18 11/13/18 06:59 14:59 22:59 Intake Total 1482.8 2948.5 Output Total 800 800 Balance 682.8 2148.5 Intake: IV 50 40 Intake, IV Amount 1432.8 2428.5 Right Forearm 22.8 28.5 Right Forearm Anterior 10 Right Forearm Posterior 600 Right Upper arm 800 2400 Oral 480 Output: Urine 800 Urine, Voided 800 Stool 0 Urine/Stool Mix 800 - Medications Active Medications: Active Medications Generic Name Dose Route Start Last Admin Trade Name Freq PRN Reason Stop Dose Admin Acetaminophen 650 mg 11/12/18 20:03 11/13/18 00:01 Tylenol 325mg Tab PO 650 mg Q6 PRN Administration Fever >100.4 F Ferrous Sulfate 300 mg 11/13/18 10:00 11/13/18 09:33 Feosol Liq PO 300 mg DAILY DONTRELL Administration Sodium Chloride 1,000 mls @ 100 mls/hr 11/11/18 23:45 11/13/18 05:52 Sodium Chloride 0.9% IV Not Given .Q10H DONTRELL Heparin Sodium/Sodium Chloride 25,000 units in 250 mls @ 6.891 mls/hr 11/12/18 13:37 11/13/18 08:00 Heparin 62330 Units/250ml 1/2 Normal Saline IV 14.88 units/kg/hr .Q24H PRN 5.7 mls/hr PROTOCOL Titration Protocol 18 UNITS/KG/HR Ciprofloxacin 400 mg in 200 mls @ 133 mls/hr 11/12/18 18:30 11/13/18 05:54 Cipro 400mg/200ml Dsw IVPB 133 mls/hr Q12H DONTRELL Administration Protocol Metronidazole 500 mg in 100 mls @ 100 mls/hr 11/12/18 18:30 11/13/18 11:56 Flagyl IVPB 100 mls/hr Q8H DONTRELL Administration Protocol Levetiracetam 750 mg/ Dextrose 107.5 mls @ 420 mls/hr 11/13/18 15:15 IVPB 11/13/18 15:30 ONCE ONE Levetiracetam 500 mg/ Dextrose 105 mls @ 420 mls/hr 11/14/18 08:00 IVPB Q12H DONTRELL Lorazepam 0.5 mg 11/13/18 09:26 11/13/18 09:39 Ativan IVP 0.5 mg Q6H PRN Administration Agitation Pantoprazole Sodium 40 mg 11/12/18 17:30 11/13/18 09:33 Protonix Ec Tab PO 40 mg DAILY DONTRELL Administration Saccharomyces Boulardii 250 mg 11/12/18 18:00 11/13/18 09:33 Florastor PO 250 mg BID DONTRELL Administration - Patient Studies Lab Studies: Microbiology Studies 11/12/18 18:21 Urine Culture - Final Urine,Clean Catch No Growth (<1,000 CFU/ML) 11/12/18 02:48 MRSA Culture (Admit) - Final Nose MRSA NOT DETECTED Lab Studies 11/13/18 11/13/18 11/13/18 Range/Units 11:38 08:26 07:01 WBC (4.8-10.8) K/uL RBC (3.80-5.20) Mil/uL Hgb (11.0-16.0) g/dL Hct (34.0-47.0) % MCV (81.0-99.0) fL MCH (27.0-31.0) pg MCHC (33.0-37.0) g/dL RDW (11.5-14.5) % Plt Count (130-400) K/uL MPV (7.2-11.7) fL Neut % (Auto) (50.0-75.0) % Lymph % (Auto) (20.0-40.0) % Isabella % (Auto) (0.0-10.0) % Eos % (Auto) (0.0-4.0) % Baso % (Auto) (0.0-2.0) % Neut # (Auto) (1.8-7.0) K/uL Lymph # (Auto) (1.0-4.3) K/uL Isabella # (Auto) (0.0-0.8) K/uL Eos # (Auto) (0.0-0.7) K/uL Baso # (Auto) (0.0-0.2) K/uL ESR (0-20) mm/hr APTT 60 H D (21-34) SECONDS Sodium (132-148) mmol/L Potassium (3.6-5.2) mmol/L Chloride (98-107) mmol/L Carbon Dioxide (22-30) mmol/L Anion Gap (10-20) BUN (7-17) mg/dL Creatinine (0.7-1.2) mg/dL Est GFR ( Amer) Est GFR (Non-Af Amer) POC Glucose (mg/dL) 79 86 (65-110) mg/dL Random Glucose (65-105) mg/dL Calcium (8.6-10.4) mg/dl Phosphorus (2.5-4.5) mg/dL Magnesium (1.6-2.3) mg/dL Iron (37-170) ug/dL TIBC (250-450) ug/dL % Saturation (20-55) Ferritin ng/mL Total Bilirubin (0.2-1.3) mg/dL AST (14-36) U/L ALT (9-52) U/L Alkaline Phosphatase (38-126) U/L C-Reactive Protein (0.0-9.9) mg/L Total Protein (6.3-8.3) g/dL Albumin (3.5-5.0) g/dL Globulin (2.2-3.9) gm/dL Albumin/Globulin Ratio (1.0-2.1) Vitamin B12 (239-931) pg/mL Free T4 (0.78-2.19) ng/dL TSH 3rd Generation (0.46-4.68) mIU/L RPR (NONREACTIVE) Hepatitis A IgM Ab (NEGATIVE) Hep Bs Antigen (NEGATIVE) Hep B Core IgM Ab (NEGATIVE) Hepatitis C Antibody (NEGATIVE) 11/13/18 11/13/18 11/13/18 Range/Units 05:47 05:47 04:51 WBC 8.9 (4.8-10.8) K/uL RBC 4.69 (3.80-5.20) Mil/uL Hgb 8.5 L (11.0-16.0) g/dL Hct 30.1 L (34.0-47.0) % MCV 64.2 L (81.0-99.0) fL MCH 18.0 L (27.0-31.0) pg MCHC 28.1 L (33.0-37.0) g/dL RDW 18.7 H (11.5-14.5) % Plt Count 243 (130-400) K/uL MPV 8.6 (7.2-11.7) fL Neut % (Auto) 65.4 (50.0-75.0) % Lymph % (Auto) 23.1 (20.0-40.0) % Isabella % (Auto) 10.7 H (0.0-10.0) % Eos % (Auto) 0.5 (0.0-4.0) % Baso % (Auto) 0.3 (0.0-2.0) % Neut # (Auto) 5.8 (1.8-7.0) K/uL Lymph # (Auto) 2.1 (1.0-4.3) K/uL Isabella # (Auto) 1.0 H (0.0-0.8) K/uL Eos # (Auto) 0.0 (0.0-0.7) K/uL Baso # (Auto) 0.0 (0.0-0.2) K/uL ESR (0-20) mm/hr APTT 141 H* D (21-34) SECONDS Sodium 134 (132-148) mmol/L Potassium 3.2 L (3.6-5.2) mmol/L Chloride 108 H (98-107) mmol/L Carbon Dioxide 18 L (22-30) mmol/L Anion Gap 11 (10-20) BUN 6 L (7-17) mg/dL Creatinine 0.4 L (0.7-1.2) mg/dL Est GFR ( Amer) > 60 Est GFR (Non-Af Amer) > 60 POC Glucose (mg/dL) (65-110) mg/dL Random Glucose 71 (65-105) mg/dL Calcium 7.1 L (8.6-10.4) mg/dl Phosphorus 3.2 (2.5-4.5) mg/dL Magnesium 2.0 (1.6-2.3) mg/dL Iron (37-170) ug/dL TIBC (250-450) ug/dL % Saturation (20-55) Ferritin ng/mL Total Bilirubin 0.7 (0.2-1.3) mg/dL AST 37 H D (14-36) U/L ALT 41 (9-52) U/L Alkaline Phosphatase 96 (38-126) U/L C-Reactive Protein (0.0-9.9) mg/L Total Protein 5.6 L (6.3-8.3) g/dL Albumin 2.1 L D (3.5-5.0) g/dL Globulin 3.5 (2.2-3.9) gm/dL Albumin/Globulin Ratio 0.6 L (1.0-2.1) Vitamin B12 (239-931) pg/mL Free T4 (0.78-2.19) ng/dL TSH 3rd Generation (0.46-4.68) mIU/L RPR (NONREACTIVE) Hepatitis A IgM Ab (NEGATIVE) Hep Bs Antigen (NEGATIVE) Hep B Core IgM Ab (NEGATIVE) Hepatitis C Antibody (NEGATIVE) 11/13/18 11/12/18 11/12/18 Range/Units 02:47 22:48 19:42 WBC (4.8-10.8) K/uL RBC (3.80-5.20) Mil/uL Hgb (11.0-16.0) g/dL Hct (34.0-47.0) % MCV (81.0-99.0) fL MCH (27.0-31.0) pg MCHC (33.0-37.0) g/dL RDW (11.5-14.5) % Plt Count (130-400) K/uL MPV (7.2-11.7) fL Neut % (Auto) (50.0-75.0) % Lymph % (Auto) (20.0-40.0) % Isabella % (Auto) (0.0-10.0) % Eos % (Auto) (0.0-4.0) % Baso % (Auto) (0.0-2.0) % Neut # (Auto) (1.8-7.0) K/uL Lymph # (Auto) (1.0-4.3) K/uL Isabella # (Auto) (0.0-0.8) K/uL Eos # (Auto) (0.0-0.7) K/uL Baso # (Auto) (0.0-0.2) K/uL ESR (0-20) mm/hr APTT > 400 H* D 320 H* D (21-34) SECONDS Sodium (132-148) mmol/L Potassium (3.6-5.2) mmol/L Chloride (98-107) mmol/L Carbon Dioxide (22-30) mmol/L Anion Gap (10-20) BUN (7-17) mg/dL Creatinine (0.7-1.2) mg/dL Est GFR ( Amer) Est GFR (Non-Af Amer) POC Glucose (mg/dL) 78 (65-110) mg/dL Random Glucose (65-105) mg/dL Calcium (8.6-10.4) mg/dl Phosphorus (2.5-4.5) mg/dL Magnesium (1.6-2.3) mg/dL Iron (37-170) ug/dL TIBC (250-450) ug/dL % Saturation (20-55) Ferritin ng/mL Total Bilirubin (0.2-1.3) mg/dL AST (14-36) U/L ALT (9-52) U/L Alkaline Phosphatase (38-126) U/L C-Reactive Protein (0.0-9.9) mg/L Total Protein (6.3-8.3) g/dL Albumin (3.5-5.0) g/dL Globulin (2.2-3.9) gm/dL Albumin/Globulin Ratio (1.0-2.1) Vitamin B12 (239-931) pg/mL Free T4 (0.78-2.19) ng/dL TSH 3rd Generation (0.46-4.68) mIU/L RPR (NONREACTIVE) Hepatitis A IgM Ab (NEGATIVE) Hep Bs Antigen (NEGATIVE) Hep B Core IgM Ab (NEGATIVE) Hepatitis C Antibody (NEGATIVE) 11/12/18 11/12/18 11/12/18 Range/Units 16:06 16:06 16:03 WBC 6.6 (4.8-10.8) K/uL RBC 4.63 (3.80-5.20) Mil/uL Hgb 8.6 L (11.0-16.0) g/dL Hct 29.8 L (34.0-47.0) % MCV 64.5 L D (81.0-99.0) fL MCH 18.6 L (27.0-31.0) pg MCHC 28.8 L (33.0-37.0) g/dL RDW 18.5 H (11.5-14.5) % Plt Count 246 (130-400) K/uL MPV 8.7 (7.2-11.7) fL Neut % (Auto) 70.6 (50.0-75.0) % Lymph % (Auto) 20.6 (20.0-40.0) % Isabella % (Auto) 8.6 (0.0-10.0) % Eos % (Auto) 0.1 (0.0-4.0) % Baso % (Auto) 0.1 (0.0-2.0) % Neut # (Auto) 4.7 (1.8-7.0) K/uL Lymph # (Auto) 1.4 (1.0-4.3) K/uL Isabella # (Auto) 0.6 (0.0-0.8) K/uL Eos # (Auto) 0.0 (0.0-0.7) K/uL Baso # (Auto) 0.0 (0.0-0.2) K/uL ESR 10 (0-20) mm/hr APTT (21-34) SECONDS Sodium (132-148) mmol/L Potassium (3.6-5.2) mmol/L Chloride (98-107) mmol/L Carbon Dioxide (22-30) mmol/L Anion Gap (10-20) BUN (7-17) mg/dL Creatinine (0.7-1.2) mg/dL Est GFR ( Amer) Est GFR (Non-Af Amer) POC Glucose (mg/dL) (65-110) mg/dL Random Glucose (65-105) mg/dL Calcium (8.6-10.4) mg/dl Phosphorus (2.5-4.5) mg/dL Magnesium (1.6-2.3) mg/dL Iron (37-170) ug/dL TIBC (250-450) ug/dL % Saturation (20-55) Ferritin ng/mL Total Bilirubin (0.2-1.3) mg/dL AST (14-36) U/L ALT (9-52) U/L Alkaline Phosphatase (38-126) U/L C-Reactive Protein (0.0-9.9) mg/L Total Protein (6.3-8.3) g/dL Albumin (3.5-5.0) g/dL Globulin (2.2-3.9) gm/dL Albumin/Globulin Ratio (1.0-2.1) Vitamin B12 (239-931) pg/mL Free T4 (0.78-2.19) ng/dL TSH 3rd Generation (0.46-4.68) mIU/L RPR Nonreactive (NONREACTIVE) Hepatitis A IgM Ab (NEGATIVE) Hep Bs Antigen (NEGATIVE) Hep B Core IgM Ab (NEGATIVE) Hepatitis C Antibody (NEGATIVE) 11/12/18 11/12/18 11/12/18 Range/Units 16:03 15:59 15:59 WBC (4.8-10.8) K/uL RBC (3.80-5.20) Mil/uL Hgb (11.0-16.0) g/dL Hct (34.0-47.0) % MCV (81.0-99.0) fL MCH (27.0-31.0) pg MCHC (33.0-37.0) g/dL RDW (11.5-14.5) % Plt Count (130-400) K/uL MPV (7.2-11.7) fL Neut % (Auto) (50.0-75.0) % Lymph % (Auto) (20.0-40.0) % Isabella % (Auto) (0.0-10.0) % Eos % (Auto) (0.0-4.0) % Baso % (Auto) (0.0-2.0) % Neut # (Auto) (1.8-7.0) K/uL Lymph # (Auto) (1.0-4.3) K/uL Isabella # (Auto) (0.0-0.8) K/uL Eos # (Auto) (0.0-0.7) K/uL Baso # (Auto) (0.0-0.2) K/uL ESR (0-20) mm/hr APTT (21-34) SECONDS Sodium (132-148) mmol/L Potassium (3.6-5.2) mmol/L Chloride (98-107) mmol/L Carbon Dioxide (22-30) mmol/L Anion Gap (10-20) BUN (7-17) mg/dL Creatinine (0.7-1.2) mg/dL Est GFR ( Amer) Est GFR (Non-Af Amer) POC Glucose (mg/dL) (65-110) mg/dL Random Glucose (65-105) mg/dL Calcium (8.6-10.4) mg/dl Phosphorus (2.5-4.5) mg/dL Magnesium (1.6-2.3) mg/dL Iron 24 L (37-170) ug/dL TIBC 204 L (250-450) ug/dL % Saturation 12 L (20-55) Ferritin ng/mL Total Bilirubin (0.2-1.3) mg/dL AST (14-36) U/L ALT (9-52) U/L Alkaline Phosphatase (38-126) U/L C-Reactive Protein (0.0-9.9) mg/L Total Protein (6.3-8.3) g/dL Albumin (3.5-5.0) g/dL Globulin (2.2-3.9) gm/dL Albumin/Globulin Ratio (1.0-2.1) Vitamin B12 (239-931) pg/mL Free T4 1.42 (0.78-2.19) ng/dL TSH 3rd Generation (0.46-4.68) mIU/L RPR (NONREACTIVE) Hepatitis A IgM Ab Negative (NEGATIVE) Hep Bs Antigen Negative (NEGATIVE) Hep B Core IgM Ab Negative (NEGATIVE) Hepatitis C Antibody Negative (NEGATIVE) 11/12/18 Range/Units 15:59 WBC (4.8-10.8) K/uL RBC (3.80-5.20) Mil/uL Hgb (11.0-16.0) g/dL Hct (34.0-47.0) % MCV (81.0-99.0) fL MCH (27.0-31.0) pg MCHC (33.0-37.0) g/dL RDW (11.5-14.5) % Plt Count (130-400) K/uL MPV (7.2-11.7) fL Neut % (Auto) (50.0-75.0) % Lymph % (Auto) (20.0-40.0) % Isabella % (Auto) (0.0-10.0) % Eos % (Auto) (0.0-4.0) % Baso % (Auto) (0.0-2.0) % Neut # (Auto) (1.8-7.0) K/uL Lymph # (Auto) (1.0-4.3) K/uL Isabella # (Auto) (0.0-0.8) K/uL Eos # (Auto) (0.0-0.7) K/uL Baso # (Auto) (0.0-0.2) K/uL ESR (0-20) mm/hr APTT (21-34) SECONDS Sodium (132-148) mmol/L Potassium (3.6-5.2) mmol/L Chloride (98-107) mmol/L Carbon Dioxide (22-30) mmol/L Anion Gap (10-20) BUN (7-17) mg/dL Creatinine (0.7-1.2) mg/dL Est GFR ( Amer) Est GFR (Non-Af Amer) POC Glucose (mg/dL) (65-110) mg/dL Random Glucose (65-105) mg/dL Calcium (8.6-10.4) mg/dl Phosphorus 3.0 (2.5-4.5) mg/dL Magnesium 1.5 L (1.6-2.3) mg/dL Iron (37-170) ug/dL TIBC (250-450) ug/dL % Saturation (20-55) Ferritin 4.2 ng/mL Total Bilirubin (0.2-1.3) mg/dL AST (14-36) U/L ALT (9-52) U/L Alkaline Phosphatase (38-126) U/L C-Reactive Protein 9.80 (0.0-9.9) mg/L Total Protein (6.3-8.3) g/dL Albumin (3.5-5.0) g/dL Globulin (2.2-3.9) gm/dL Albumin/Globulin Ratio (1.0-2.1) Vitamin B12 301 (239-931) pg/mL Free T4 (0.78-2.19) ng/dL TSH 3rd Generation 1.03 (0.46-4.68) mIU/L RPR (NONREACTIVE) Hepatitis A IgM Ab (NEGATIVE) Hep Bs Antigen (NEGATIVE) Hep B Core IgM Ab (NEGATIVE) Hepatitis C Antibody (NEGATIVE) Laboratory Results - last 24 hr 11/12/18 11/12/18 11/12/18 15:59 15:59 15:59 WBC RBC Hgb Hct MCV MCH MCHC RDW Plt Count MPV Neut % (Auto) Lymph % (Auto) Isabella % (Auto) Eos % (Auto) Baso % (Auto) Neut # (Auto) Lymph # (Auto) Isabella # (Auto) Eos # (Auto) Baso # (Auto) ESR APTT Sodium Potassium Chloride Carbon Dioxide Anion Gap BUN Creatinine Est GFR ( Amer) Est GFR (Non-Af Amer) POC Glucose (mg/dL) Random Glucose Calcium Phosphorus 3.0 Magnesium 1.5 L Iron 24 L TIBC 204 L % Saturation 12 L Ferritin 4.2 Total Bilirubin AST ALT Alkaline Phosphatase C-Reactive Protein 9.80 Total Protein Albumin Globulin Albumin/Globulin Ratio Vitamin B12 301 Free T4 TSH 3rd Generation 1.03 RPR Hepatitis A IgM Ab Negative Hep Bs Antigen Negative Hep B Core IgM Ab Negative Hepatitis C Antibody Negative 11/12/18 11/12/18 11/12/18 16:03 16:03 16:06 WBC RBC Hgb Hct MCV MCH MCHC RDW Plt Count MPV Neut % (Auto) Lymph % (Auto) Isabella % (Auto) Eos % (Auto) Baso % (Auto) Neut # (Auto) Lymph # (Auto) Isabella # (Auto) Eos # (Auto) Baso # (Auto) ESR 10 APTT Sodium Potassium Chloride Carbon Dioxide Anion Gap BUN Creatinine Est GFR ( Amer) Est GFR (Non-Af Amer) POC Glucose (mg/dL) Random Glucose Calcium Phosphorus Magnesium Iron TIBC % Saturation Ferritin Total Bilirubin AST ALT Alkaline Phosphatase C-Reactive Protein Total Protein Albumin Globulin Albumin/Globulin Ratio Vitamin B12 Free T4 1.42 TSH 3rd Generation RPR Nonreactive Hepatitis A IgM Ab Hep Bs Antigen Hep B Core IgM Ab Hepatitis C Antibody 11/12/18 11/12/18 11/12/18 16:06 19:42 22:48 WBC 6.6 RBC 4.63 Hgb 8.6 L Hct 29.8 L MCV 64.5 L D MCH 18.6 L MCHC 28.8 L RDW 18.5 H Plt Count 246 MPV 8.7 Neut % (Auto) 70.6 Lymph % (Auto) 20.6 Isabella % (Auto) 8.6 Eos % (Auto) 0.1 Baso % (Auto) 0.1 Neut # (Auto) 4.7 Lymph # (Auto) 1.4 Isabella # (Auto) 0.6 Eos # (Auto) 0.0 Baso # (Auto) 0.0 ESR APTT 320 H* D Sodium Potassium Chloride Carbon Dioxide Anion Gap BUN Creatinine Est GFR ( Amer) Est GFR (Non-Af Amer) POC Glucose (mg/dL) 78 Random Glucose Calcium Phosphorus Magnesium Iron TIBC % Saturation Ferritin Total Bilirubin AST ALT Alkaline Phosphatase C-Reactive Protein Total Protein Albumin Globulin Albumin/Globulin Ratio Vitamin B12 Free T4 TSH 3rd Generation RPR Hepatitis A IgM Ab Hep Bs Antigen Hep B Core IgM Ab Hepatitis C Antibody 11/13/18 11/13/18 11/13/18 02:47 04:51 05:47 WBC 8.9 RBC 4.69 Hgb 8.5 L Hct 30.1 L MCV 64.2 L MCH 18.0 L MCHC 28.1 L RDW 18.7 H Plt Count 243 MPV 8.6 Neut % (Auto) 65.4 Lymph % (Auto) 23.1 Isabella % (Auto) 10.7 H Eos % (Auto) 0.5 Baso % (Auto) 0.3 Neut # (Auto) 5.8 Lymph # (Auto) 2.1 Isabella # (Auto) 1.0 H Eos # (Auto) 0.0 Baso # (Auto) 0.0 ESR APTT > 400 H* D 141 H* D Sodium Potassium Chloride Carbon Dioxide Anion Gap BUN Creatinine Est GFR ( Amer) Est GFR (Non-Af Amer) POC Glucose (mg/dL) Random Glucose Calcium Phosphorus Magnesium Iron TIBC % Saturation Ferritin Total Bilirubin AST ALT Alkaline Phosphatase C-Reactive Protein Total Protein Albumin Globulin Albumin/Globulin Ratio Vitamin B12 Free T4 TSH 3rd Generation RPR Hepatitis A IgM Ab Hep Bs Antigen Hep B Core IgM Ab Hepatitis C Antibody 11/13/18 11/13/18 11/13/18 05:47 07:01 08:26 WBC RBC Hgb Hct MCV MCH MCHC RDW Plt Count MPV Neut % (Auto) Lymph % (Auto) Isabella % (Auto) Eos % (Auto) Baso % (Auto) Neut # (Auto) Lymph # (Auto) Isabella # (Auto) Eos # (Auto) Baso # (Auto) ESR APTT 60 H D Sodium 134 Potassium 3.2 L Chloride 108 H Carbon Dioxide 18 L Anion Gap 11 BUN 6 L Creatinine 0.4 L Est GFR ( Amer) > 60 Est GFR (Non-Af Amer) > 60 POC Glucose (mg/dL) 86 Random Glucose 71 Calcium 7.1 L Phosphorus 3.2 Magnesium 2.0 Iron TIBC % Saturation Ferritin Total Bilirubin 0.7 AST 37 H D ALT 41 Alkaline Phosphatase 96 C-Reactive Protein Total Protein 5.6 L Albumin 2.1 L D Globulin 3.5 Albumin/Globulin Ratio 0.6 L Vitamin B12 Free T4 TSH 3rd Generation RPR Hepatitis A IgM Ab Hep Bs Antigen Hep B Core IgM Ab Hepatitis C Antibody 11/13/18 11:38 WBC RBC Hgb Hct MCV MCH MCHC RDW Plt Count MPV Neut % (Auto) Lymph % (Auto) Isabella % (Auto) Eos % (Auto) Baso % (Auto) Neut # (Auto) Lymph # (Auto) Isabella # (Auto) Eos # (Auto) Baso # (Auto) ESR APTT Sodium Potassium Chloride Carbon Dioxide Anion Gap BUN Creatinine Est GFR ( Amer) Est GFR (Non-Af Amer) POC Glucose (mg/dL) 79 Random Glucose Calcium Phosphorus Magnesium Iron TIBC % Saturation Ferritin Total Bilirubin AST ALT Alkaline Phosphatase C-Reactive Protein Total Protein Albumin Globulin Albumin/Globulin Ratio Vitamin B12 Free T4 TSH 3rd Generation RPR Hepatitis A IgM Ab Hep Bs Antigen Hep B Core IgM Ab Hepatitis C Antibody Radiology Impressions: Radiology Impressions Head CT 11/13/18 05:58 IMPRESSION: Interval increase in the size of the previously seen vague hypodense area in the superior right frontal parietal region likely represent acute infarct . no definite evidence of a new hematoma or significant parenchymal hemorrhage. However the possibility of petechial hemorrhage in the infarcted area is not totally excluded. Close follow-up reassessment is suggested. No evidence of significant mass effect or midline shift. Preliminary report contains concordant findings was submitted by [facility] Radiology. Fingerstick Blood Sugar Results: 79 Critical Care Progress Note - Nutrition Nutrition: Nutrition Category Date Time Status Regular Diet [DIET] Diets 11/12/18 Breakfast Active
--- NOTE | 2018-11-13 16:04 | CP.PCM.PN ---
Subjective - Date & Time of Evaluation Date of Evaluation: 11/13/18 Time of Evaluation: 16:19 - Subjective Subjective: PGY1 Medicine progress note for Dr. Pisano's service Pt was seen and examined at bedside. Pt is resting comfortably. She reports that she feels tired. She reports her sensation and strength in the right side is improved since yesterday. She denies fever, chills, chest pain, sob, abdominal pain, n/v/d, hematochezia, melena, new bruising, headache, dizziness, lightheadedness, syncope, dysphagia, aphasia, bowel or bladder incontinence. Pt noted to have jerking movements of the neck earlier this morning. Placed on video eeg for monitoring for seizure activity. Objective - Vital Signs/Intake and Output Vital Signs (last 24 hours): Temp Pulse Resp BP Pulse Ox 98.9 F 106 H 26 H 93/50 L 100 11/13/18 12:00 11/13/18 15:06 11/13/18 15:06 11/13/18 15:06 11/13/18 14:06 Intake and Output: 11/13/18 11/13/18 06:59 18:59 Intake Total 2102.3 3745.6 Output Total 800 800 Balance 1302.3 2945.6 - Medications Medications: Current Medications Acetaminophen (Tylenol 325mg Tab) 650 mg PO Q6 PRN PRN Reason: Fever >100.4 F Last Admin: 11/13/18 00:01 Dose: 650 mg Ferrous Sulfate (Feosol Liq) 300 mg PO DAILY DONTRELL Last Admin: 11/13/18 09:33 Dose: 300 mg Sodium Chloride (Sodium Chloride 0.9%) 1,000 mls @ 100 mls/hr IV .Q10H DONTRELL Last Admin: 11/13/18 05:52 Dose: Not Given Heparin Sodium/Sodium Chloride (Heparin 45341 Units/250ml 1/2 Normal Saline) 25,000 units in 250 mls @ 6.891 mls/hr IV .Q24H PRN; Protocol PRN Reason: PROTOCOL Last Titration: 11/13/18 08:00 Dose: 14.88 units/kg/hr, 5.7 mls/hr Ciprofloxacin (Cipro 400mg/200ml Dsw) 400 mg in 200 mls @ 133 mls/hr IVPB Q12H DONTRELL; Protocol Last Admin: 11/13/18 05:54 Dose: 133 mls/hr Metronidazole (Flagyl) 500 mg in 100 mls @ 100 mls/hr IVPB Q8H DONTRELL; Protocol Last Admin: 11/13/18 11:56 Dose: 100 mls/hr Levetiracetam 500 mg/ Dextrose 105 mls @ 420 mls/hr IVPB Q12H DONTRELL Lorazepam (Ativan) 0.5 mg IVP Q6H PRN PRN Reason: Agitation Last Admin: 11/13/18 09:39 Dose: 0.5 mg Pantoprazole Sodium (Protonix Ec Tab) 40 mg PO DAILY [facility] Last Admin: 11/13/18 09:33 Dose: 40 mg Saccharomyces Boulardii (Florastor) 250 mg PO BID DONTRELL Last Admin: 11/13/18 09:33 Dose: 250 mg - Labs Labs: 11/13/18 05:47 11/13/18 05:47 PT 15.9 SECONDS (9.7-12.2) H 11/11/18 23:41 INR 1.5 11/11/18 23:41 APTT 74 SECONDS (21-34) H D 11/13/18 15:02 - Constitutional Appears: Non-toxic, No Acute Distress - Head Exam Head Exam: ATRAUMATIC, NORMAL INSPECTION Additional comments: bandages around EEG electrodes - Eye Exam Eye Exam: EOMI, Normal appearance, PERRL - ENT Exam ENT Exam: Mucous Membranes Moist - Neck Exam Neck Exam: Full ROM - Respiratory Exam Respiratory Exam: Clear to Ausculation Bilateral. absent: Accessory Muscle Use, Rales, Rhonchi, Wheezes, Respiratory Distress - Cardiovascular Exam Cardiovascular Exam: Tachycardia (at approximately 100), REGULAR RHYTHM, +S1, +S2 - GI/Abdominal Exam GI & Abdominal Exam: Soft, Normal Bowel Sounds. absent: Distended, Firm, Guarding, Tenderness - Extremities Exam Extremities Exam: Normal Capillary Refill, Normal Inspection. absent: Calf Tenderness, Pedal Edema, Tenderness - Back Exam Back Exam: NORMAL INSPECTION - Neurological Exam Neurological Exam: Alert, Awake, CN II-XII Intact Neuro motor strength exam: Left Upper Extremity: 4, Right Upper Extremity: 5, Left Lower Extremity: 4, Right Lower Extremity: 5 Additional comments: normal babinsky (+) left upper extremity pronator drift Dermatomal sensation is equal in upper and lower extremities (+) proprioception is intact in lower extremities - Psychiatric Exam Psychiatric exam: Normal Affect, Normal Mood - Skin Skin Exam: Dry, Normal Color, Warm Assessment and Plan - Assessment and Plan (Free Text) Assessment: 23F w/ recent travel to [place] (with 2 weeks of diarrhea) presents w/ code stroke, found to have R parietal infarct likely 2/2 right cortical venous thrombosis, with possible PFO noted on ECHO. Pt noted to have jerking like movements on 11/12-11/13. Placed on video EEG monitoring. 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 no significant mass effect or midline shift. cortical venous thrombosis leading up to the hemorrhagic venous infarction in the right posterior parietal lobe. MRI C spine (11/12/18): normal pre and post contrast MRI of the cervical spine. - CTA head and neck (11/11/18): 1. no evidence of endoluminal thrombus, occlusion, or definite significant stenosis in the intracranial arteries. 2. No evidence of hemodynamically significant stenosis in the internal carotid arteries. 3.Patent bilateral vertebral arteries. - CT Head (11/11/18): faint hypodensity in the right parietal lobe consistent with infarction. - Repeat head CT 11/13 shows interval increase in size of the previously seen vague hypodense area in the superior right frontal parietal region likely represent acute infarct. no definite evidence of new hematoma or significant parenchymal hemorrhage. Possibility of petechial hemorrhage in the infarcted area is not totally excluded. no evidence of significant mass effect or midline shift. - Q1 neuro checks - Continue Heparin drip per neuro - continue to monitor for seizure activity via continuous video EEG - ativan prn seizure activity - Keppra recommended - f/u neuro recs-- Dr. Sandoval Cardiac - continue IV NS @ 100ml/hr - tylenol for fever - troponin negative - continue to monitor vitals - Echo 11/12: Left ventricle normal in size, EF 60-65%, bubble study is suggestive of possible PFO, transmitral doppler flow pattern is Grade I abnormal relaxation pattern, no pericardial effusion. - F/u Venous lower extremity duplexes - F/u Cardiac consult, Dr. Jamey Martino - O2 100% on RA - CXR 2/14: no focal consolidation - no acute issues GI - Regular Diet - f/u fecal occult blood - GI ppx-- Protonix - stool studies as below for cause of diarrhea - hepatitis panel is negative Renal - BUN/Cr is stable - continue to replete electrolytes as needed - continue NS at 100ml/hr Heme/Onc - Microcytic Anemia - H/H is stable - MCV 64.2 - Iron 24, TIBC 204, % iron saturation 204, Ferritin 12 - replete with ferrus sulfate - monitor CBC - possibly hypercoagulopathy - vitb12 is normal - F/u hypercoag labs - F/u Dr. Jose ford Endo - TSH/T4 is normal ID - Pt afebrile - no leukocytosis, but with tachycardia (100) - f/u fecal cx - f/u fecal ova and parasites - f/u c.difficle - f/u Lyme panel - start ciprofloxacin and flagyl saccharomyces for ppx - ID consult-- Dr. Barth - HIV is negative - RPR is nonreactive - Blood culture prelim is negative x 24 hours - urine culture is negative PPx - Tylenol PRN for fever - DVT ppx-- on Heparin drip - GI ppx-- protonix - F/u Public Stenographer recs, BMI of 14 - F/u pt/ot eval Case discussed with Dr. Aliya Hayes PGY1
[2018-11-13] MEDS: Heparin25000 units/250ml 1/2NS 25,000 UNITS/250 ML BAG IV PRN (17:56)
--- NOTE | 2018-11-13 18:22 | CP.PCM.PN ---
Subjective - Date & Time of Evaluation Date of Evaluation: 11/13/18 Time of Evaluation: 18:17 - Subjective Subjective: Neurology Progress Note: Ms. Christopher was seen and examined today at bedside in the ICU. She continues to have left side weakness, but it is slightly improved. She denied headache. No acute events overnight. This morning, there was notable right side jerky movement noted. It resolved with Ativan. EEG was ordered and showed right frontal sharp waves. She was loaded with Keppra. Objective - Vital Signs/Intake and Output Vital Signs (last 24 hours): Temp Pulse Resp BP Pulse Ox 98.7 F 119 H 26 H 95/71 L 100 11/13/18 16:00 11/13/18 17:06 11/13/18 17:06 11/13/18 17:06 11/13/18 16:06 Intake and Output: 11/13/18 11/13/18 06:59 18:59 Intake Total 2102.3 4307.0 Output Total 800 2000 Balance 1302.3 2307.0 - Medications Medications: Current Medications Acetaminophen (Tylenol 325mg Tab) 650 mg PO Q6 PRN PRN Reason: Fever >100.4 F Last Admin: 11/13/18 00:01 Dose: 650 mg Ferrous Sulfate (Feosol Liq) 300 mg PO DAILY [facility] Last Admin: 11/13/18 09:33 Dose: 300 mg Sodium Chloride (Sodium Chloride 0.9%) 1,000 mls @ 100 mls/hr IV .Q10H [facility] Last Admin: 11/13/18 05:52 Dose: Not Given Heparin Sodium/Sodium Chloride (Heparin 60517 Units/250ml 1/2 Normal Saline) 25,000 units in 250 mls @ 6.891 mls/hr IV .Q24H PRN; Protocol PRN Reason: PROTOCOL Last Admin: 11/13/18 17:56 Dose: 14.88 units/kg/hr, 5.7 mls/hr Ciprofloxacin (Cipro 400mg/200ml Dsw) 400 mg in 200 mls @ 133 mls/hr IVPB Q12H [facility]; Protocol Last Admin: 11/13/18 05:54 Dose: 133 mls/hr Metronidazole (Flagyl) 500 mg in 100 mls @ 100 mls/hr IVPB Q8H [facility]; Protocol Last Admin: 11/13/18 17:51 Dose: 100 mls/hr Levetiracetam 500 mg/ Dextrose 105 mls @ 420 mls/hr IVPB Q12H [facility] Lorazepam (Ativan) 0.5 mg IVP Q6H PRN PRN Reason: Agitation Last Admin: 11/13/18 09:39 Dose: 0.5 mg Pantoprazole Sodium (Protonix Ec Tab) 40 mg PO DAILY [facility] Last Admin: 11/13/18 09:33 Dose: 40 mg Saccharomyces Boulardii (Florastor) 250 mg PO BID [facility] Last Admin: 11/13/18 17:52 Dose: 250 mg - Labs Labs: 11/13/18 05:47 11/13/18 05:47 PT 15.9 SECONDS (9.7-12.2) H 11/11/18 23:41 INR 1.5 11/11/18 23:41 APTT 74 SECONDS (21-34) H D 11/13/18 15:02 - Constitutional Appears: Well - Head Exam Head Exam: ATRAUMATIC, NORMAL INSPECTION, NORMOCEPHALIC - Eye Exam Eye Exam: EOMI, Normal appearance, PERRL - ENT Exam ENT Exam: Mucous Membranes Moist, Normal Exam - Neck Exam Neck Exam: Full ROM, Normal Inspection. absent: Lymphadenopathy - Respiratory Exam Respiratory Exam: Clear to Ausculation Bilateral, NORMAL BREATHING PATTERN - Cardiovascular Exam Cardiovascular Exam: REGULAR RHYTHM, +S1, +S2. absent: Murmur - GI/Abdominal Exam GI & Abdominal Exam: Soft, Normal Bowel Sounds. absent: Tenderness - Neurological Exam Neurological Exam: Abnormal Gait, Alert, Awake, CN II-XII Intact, Oriented x3 Neuro motor strength exam: Left Upper Extremity: 3, Right Upper Extremity: 5, Left Lower Extremity: 4, Right Lower Extremity: 5 - Psychiatric Exam Psychiatric exam: Normal Affect, Normal Mood - Skin Skin Exam: Dry, Intact, Normal Color, Warm Assessment and Plan (1) Cerebral venous thrombosis of cortical vein Assessment & Plan: Continue heparin drip for treatment. MRV of the brain is recommended. Bridge to coumadin starting tomorrow. Repeat CT head in the AM. Continue Keppra 500 mg BID. D/C VEEG. Thank you. Status: Acute
--- NOTE | 2018-11-13 20:04 | CP.PCM.PN ---
Subjective - Date & Time of Evaluation Date of Evaluation: 11/13/18 Time of Evaluation: 11:05 - Subjective Subjective: Patient seen and evaluated No cardiac events noted Physical examination Appears: Non-toxic, No Acute Distress - Head Exam Head Exam: ATRAUMATIC, NORMAL INSPECTION Additional comments: bandages around EEG electrodes - Eye Exam Eye Exam: EOMI, Normal appearance, PERRL - ENT Exam ENT Exam: Mucous Membranes Moist - Neck Exam Neck Exam: Full ROM - Respiratory Exam Respiratory Exam: Clear to Ausculation Bilateral. absent: Accessory Muscle Use, Rales, Rhonchi, Wheezes, Respiratory Distress - Cardiovascular Exam Cardiovascular Exam: Tachycardia (at approximately 100), REGULAR RHYTHM, +S1, +S2 - GI/Abdominal Exam GI & Abdominal Exam: Soft, Normal Bowel Sounds. absent: Distended, Firm, Guarding, Tenderness - Extremities Exam Extremities Exam: Normal Capillary Refill, Normal Inspection. absent: Calf Tenderness, Pedal Edema, Tenderness - Back Exam Back Exam: NORMAL INSPECTION - Neurological Exam Neurological Exam: Alert, Awake, CN II-XII Intact Neuro motor strength exam: Left Upper Extremity: 4, Right Upper Extremity: 5, Left Lower Extremity: 4, Right Lower Extremity: 5 Additional comments: normal babinsky (+) left upper extremity pronator drift Dermatomal sensation is equal in upper and lower extremities (+) proprioception is intact in lower extremities - Psychiatric Exam Psychiatric exam: Normal Affect, Normal Mood - Skin Skin Exam: Dry, Normal Color, Warm Assessment and Plan - Assessment and Plan (Free Text) Assessment: 23F w/ recent travel to [place] (with 2 weeks of diarrhea) presents w/ code stroke, found to have R parietal infarct likely 2/2 right cortical venous thrombosis, with possible PFO noted on ECHO. Pt noted to have jerking like movements on 11/12-11/13. Placed on video EEG monitoring. 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 no significant mass effect or midline shift. cortical venous thrombosis leading up to the hemorrhagic venous infarction in the right posterior parietal lobe. MRI C spine (11/12/18): normal pre and post contrast MRI of the cervical spine. - CTA head and neck (11/11/18): 1. no evidence of endoluminal thrombus, occlusion, or definite significant stenosis in the intracranial arteries. 2. No evidence of hemodynamically significant stenosis in the internal carotid arteries. 3.Patent bilateral vertebral arteries. - CT Head (11/11/18): faint hypodensity in the right parietal lobe consistent with infarction. - Repeat head CT 11/13 shows interval increase in size of the previously seen vague hypodense area in the superior right frontal parietal region likely represent acute infarct. no definite evidence of new hematoma or significant parenchymal hemorrhage. Possibility of petechial hemorrhage in the infarcted area is not totally excluded. no evidence of significant mass effect or midline shift. - Q1 neuro checks - Continue Heparin drip per neuro - continue to monitor for seizure activity via continuous video EEG - ativan prn seizure activity - Keppra recommended - f/u neuro recs-- Dr. Sandoval Cardiac - continue IV NS @ 100ml/hr - tylenol for fever - troponin negative - continue to monitor vitals - Echo 11/12: Left ventricle normal in size, EF 60-65%, bubble study is suggestive of possible PFO, transmitral doppler flow pattern is Grade I abnormal relaxation pattern, no pericardial effusion. - F/u Venous lower extremity duplexes Pulm - O2 100% on RA - CXR 11/11: no focal consolidation - no acute issues GI - Regular Diet - f/u fecal occult blood - GI ppx-- Protonix - stool studies as below for cause of diarrhea - hepatitis panel is negative Renal - BUN/Cr is stable - continue to replete electrolytes as needed - continue NS at 100ml/hr Heme/Onc - Microcytic Anemia - H/H is stable - MCV 64.2 - Iron 24, TIBC 204, % iron saturation 204, Ferritin 12 - replete with ferrus sulfate - monitor CBC - possibly hypercoagulopathy - vitb12 is normal - F/u hypercoag labs - F/u Dr. Garcia recs Endo - TSH/T4 is normal ID - Pt afebrile - no leukocytosis, but with tachycardia (100) - f/u fecal cx - f/u fecal ova and parasites - f/u c.difficle - f/u Lyme panel - start ciprofloxacin and flagyl saccharomyces for ppx - ID consult-- Dr. Barth - HIV is negative - RPR is nonreactive - Blood culture prelim is negative x 24 hours - urine culture is negative PPx - Tylenol PRN for fever - DVT ppx-- on Heparin drip - GI ppx-- protonix - F/u [employer] recs, BMI of 14 - F/u pt/ot eval Basing upon the neuro eval the event appears to be secondary to venous thrombosis. The PFO could be just an incidental finding. How ever patient is on anticoagulation. No further cardiac recommendations at this time. Objective - Vital Signs/Intake and Output Vital Signs (last 24 hours): Temp Pulse Resp BP Pulse Ox 98.7 F 104 H 23 94/52 L 100 11/13/18 16:00 11/13/18 19:00 11/13/18 19:00 11/13/18 18:06 11/13/18 19:00 Intake and Output: 11/13/18 11/14/18 18:59 06:59 Intake Total 4652.7 138.7 Output Total 3000 Balance 1652.7 138.7 - Medications Medications: Current Medications Acetaminophen (Tylenol 325mg Tab) 650 mg PO Q6 PRN PRN Reason: Fever >100.4 F Last Admin: 11/13/18 00:01 Dose: 650 mg Ferrous Sulfate (Feosol Liq) 300 mg PO DAILY [facility] Last Admin: 11/13/18 09:33 Dose: 300 mg Sodium Chloride (Sodium Chloride 0.9%) 1,000 mls @ 100 mls/hr IV .Q10H [facility] Last Admin: 11/13/18 05:52 Dose: Not Given Heparin Sodium/Sodium Chloride (Heparin 44757 Units/250ml 1/2 Normal Saline) 25,000 units in 250 mls @ 6.891 mls/hr IV .Q24H PRN; Protocol PRN Reason: PROTOCOL Last Admin: 11/13/18 17:56 Dose: 14.88 units/kg/hr, 5.7 mls/hr Ciprofloxacin (Cipro 400mg/200ml Dsw) 400 mg in 200 mls @ 133 mls/hr IVPB Q12H [facility]; Protocol Last Admin: 11/13/18 19:00 Dose: 133 mls/hr Metronidazole (Flagyl) 500 mg in 100 mls @ 100 mls/hr IVPB Q8H [facility]; Protocol Last Admin: 11/13/18 17:51 Dose: 100 mls/hr Levetiracetam 500 mg/ Dextrose 105 mls @ 420 mls/hr IVPB Q12H [facility] Lorazepam (Ativan) 0.5 mg IVP Q6H PRN PRN Reason: Agitation Last Admin: 11/13/18 09:39 Dose: 0.5 mg Pantoprazole Sodium (Protonix Ec Tab) 40 mg PO DAILY [facility] Last Admin: 11/13/18 09:33 Dose: 40 mg Saccharomyces Boulardii (Florastor) 250 mg PO BID [facility] Last Admin: 11/13/18 17:52 Dose: 250 mg - Labs Labs: 11/13/18 05:47 11/13/18 05:47 PT 15.9 SECONDS (9.7-12.2) H 11/11/18 23:41 INR 1.5 11/11/18 23:41 APTT 74 SECONDS (21-34) H D 11/13/18 15:02
--- NOTE | 2018-11-13 20:45 | CP.PCM.CON ---
History of Present Illness - History of Present Illness History of Present Illness: 23 year old female with no pat medical history, presenting with acute CVA and right cortical vein thrombus. The patient notes to diarrhea, nausea, and GERD since the beginning of the month which she attributes to food poisoning while in [place]. She notes to losing 15-20 pounds over this time as she has a diminished appetite. She denies a history of hormonal replacement and has not had bleeding, bruising, clotting complications in the past. Past medical history: Denies Past surgical history: Denies Family history: Denies hematologic and oncologic problems Social history: Denies tobacco, alcohol, and illicit drug use. Allergies: NKA Review of systems: All remaining review of systems including HEENT, cardiovascular, respiratory, gastrointestinal, genitourinary, musculoskeletal, dermatologic, and neurologic are negative unless mentioned in the HPI. Past Patient History - Infectious Disease Hx of Infectious Diseases: None - Tetanus Immunizations Tetanus Immunization: Unknown - Past Medical History & Family History Past Medical History?: Yes - Past Social History Smoking Status: Never Smoked - CARDIAC Hx Cardiac Disorders: No - PULMONARY Hx Respiratory Disorders: No - NEUROLOGICAL Hx Neurological Disorder: No - HEENT Hx HEENT Problems: No - RENAL Hx Chronic Kidney Disease: No - ENDOCRINE/METABOLIC Hx Endocrine Disorders: No - HEMATOLOGICAL/ONCOLOGICAL Hx Blood Disorders: No - INTEGUMENTARY Hx Dermatological Problems: No - MUSCULOSKELETAL/RHEUMATOLOGICAL Hx Musculoskeletal Disorders: No Hx Falls: Yes - GASTROINTESTINAL Hx Gastrointestinal Disorders: Yes Hx Diarrhea: Yes Hx Gastroesophageal Reflux: Yes - GENITOURINARY/GYNECOLOGICAL Hx Genitourinary Disorders: No - PSYCHIATRIC Hx Psychophysiologic Disorder: No Hx Substance Use: No - SURGICAL HISTORY Hx Surgeries: No - ANESTHESIA Hx Anesthesia: No Meds Allergies/Adverse Reactions: Allergies Allergy/AdvReac Type Severity Reaction Status Date / Time No Known Allergies Allergy Unverified 11/11/18 23:27 - Medications Medications: Current Medications Acetaminophen (Tylenol 325mg Tab) 650 mg PO Q6 PRN PRN Reason: Fever >100.4 F Last Admin: 11/13/18 00:01 Dose: 650 mg Ferrous Sulfate (Feosol Liq) 300 mg PO DAILY [facility] Last Admin: 11/13/18 09:33 Dose: 300 mg Sodium Chloride (Sodium Chloride 0.9%) 1,000 mls @ 100 mls/hr IV .Q10H [facility] Last Admin: 11/13/18 05:52 Dose: Not Given Heparin Sodium/Sodium Chloride (Heparin 42348 Units/250ml 1/2 Normal Saline) 25,000 units in 250 mls @ 6.891 mls/hr IV .Q24H PRN; Protocol PRN Reason: PROTOCOL Last Admin: 11/13/18 17:56 Dose: 14.88 units/kg/hr, 5.7 mls/hr Ciprofloxacin (Cipro 400mg/200ml Dsw) 400 mg in 200 mls @ 133 mls/hr IVPB Q12H [facility]; Protocol Last Admin: 11/13/18 19:00 Dose: 133 mls/hr Metronidazole (Flagyl) 500 mg in 100 mls @ 100 mls/hr IVPB Q8H [facility]; Protocol Last Admin: 11/13/18 17:51 Dose: 100 mls/hr Levetiracetam 500 mg/ Dextrose 105 mls @ 420 mls/hr IVPB Q12H [facility] Lorazepam (Ativan) 0.5 mg IVP Q6H PRN PRN Reason: Agitation Last Admin: 11/13/18 09:39 Dose: 0.5 mg Pantoprazole Sodium (Protonix Ec Tab) 40 mg PO DAILY [facility] Last Admin: 11/13/18 09:33 Dose: 40 mg Saccharomyces Boulardii (Florastor) 250 mg PO BID [facility] Last Admin: 11/13/18 17:52 Dose: 250 mg Physical Exam - Head Exam Head Exam: ATRAUMATIC - Eye Exam Eye Exam: Normal appearance - ENT Exam ENT Exam: Mucous Membranes Dry - Respiratory Exam Respiratory Exam: NORMAL BREATHING PATTERN - Cardiovascular Exam Cardiovascular Exam: +S1, +S2 - GI/Abdominal Exam GI & Abdominal Exam: Normal Bowel Sounds - Extremities Exam Extremities exam: Positive for: normal inspection - Neurological Exam Neurological exam: Oriented x3 - Psychiatric Exam Psychiatric exam: Normal Affect, Normal Mood - Skin Skin Exam: Warm Results - Vital Signs Recent Vital Signs: Last Vital Signs Temp 99.6 F 11/13/18 20:00 Pulse 106 H 11/13/18 20:06 Resp 23 11/13/18 20:06 BP 100/60 11/13/18 20:06 Pulse Ox 100 11/13/18 20:06 - Labs Result Diagrams: 11/13/18 05:47 11/13/18 05:47 Labs: Laboratory Results - last 24 hr 11/12/18 11/12/18 11/13/18 15:59 22:48 02:47 WBC RBC Hgb Hct MCV MCH MCHC RDW Plt Count MPV Neut % (Auto) Lymph % (Auto) [place] % (Auto) Eos % (Auto) Baso % (Auto) Neut # (Auto) Lymph # (Auto) [place] # (Auto) Eos # (Auto) Baso # (Auto) APTT > 400 H* D Sodium Potassium Chloride Carbon Dioxide Anion Gap BUN Creatinine Est GFR ( Amer) Est GFR (Non-Af Amer) POC Glucose (mg/dL) 78 Random Glucose Calcium Phosphorus Magnesium Total Bilirubin AST ALT Alkaline Phosphatase C-Reactive Protein 9.80 Total Protein Albumin Globulin Albumin/Globulin Ratio 11/13/18 11/13/18 11/13/18 04:51 05:47 05:47 WBC 8.9 RBC 4.69 Hgb 8.5 L Hct 30.1 L MCV 64.2 L MCH 18.0 L MCHC 28.1 L RDW 18.7 H Plt Count 243 MPV 8.6 Neut % (Auto) 65.4 Lymph % (Auto) 23.1 [place] % (Auto) 10.7 H Eos % (Auto) 0.5 Baso % (Auto) 0.3 Neut # (Auto) 5.8 Lymph # (Auto) 2.1 [place] # (Auto) 1.0 H Eos # (Auto) 0.0 Baso # (Auto) 0.0 APTT 141 H* D Sodium 134 Potassium 3.2 L Chloride 108 H Carbon Dioxide 18 L Anion Gap 11 BUN 6 L Creatinine 0.4 L Est GFR ( Amer) > 60 Est GFR (Non-Af Amer) > 60 POC Glucose (mg/dL) Random Glucose 71 Calcium 7.1 L Phosphorus 3.2 Magnesium 2.0 Total Bilirubin 0.7 AST 37 H D ALT 41 Alkaline Phosphatase 96 C-Reactive Protein Total Protein 5.6 L Albumin 2.1 L D Globulin 3.5 Albumin/Globulin Ratio 0.6 L 11/13/18 11/13/18 11/13/18 07:01 08:26 11:38 WBC RBC Hgb Hct MCV MCH MCHC RDW Plt Count MPV Neut % (Auto) Lymph % (Auto) [place] % (Auto) Eos % (Auto) Baso % (Auto) Neut # (Auto) Lymph # (Auto) [place] # (Auto) Eos # (Auto) Baso # (Auto) APTT 60 H D Sodium Potassium Chloride Carbon Dioxide Anion Gap BUN Creatinine Est GFR ( Amer) Est GFR (Non-Af Amer) POC Glucose (mg/dL) 86 79 Random Glucose Calcium Phosphorus Magnesium Total Bilirubin AST ALT Alkaline Phosphatase C-Reactive Protein Total Protein Albumin Globulin Albumin/Globulin Ratio 11/13/18 11/13/18 15:02 16:18 WBC RBC Hgb Hct MCV MCH MCHC RDW Plt Count MPV Neut % (Auto) Lymph % (Auto) [place] % (Auto) Eos % (Auto) Baso % (Auto) Neut # (Auto) Lymph # (Auto) [place] # (Auto) Eos # (Auto) Baso # (Auto) APTT 74 H D Sodium Potassium Chloride Carbon Dioxide Anion Gap BUN Creatinine Est GFR ( Amer) Est GFR (Non-Af Amer) POC Glucose (mg/dL) 106 Random Glucose Calcium Phosphorus Magnesium Total Bilirubin AST ALT Alkaline Phosphatase C-Reactive Protein Total Protein Albumin Globulin Albumin/Globulin Ratio Assessment & Plan (1) Anemia Assessment and Plan: iron deficiency anemia on iron supplementation Status: Acute (2) Coagulopathy Assessment and Plan: secondary to anticoagulation Status: Acute (3) 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 Status: Acute
[2018-11-14] MEDS: Sodium Chloride 0.9% 1,000 ML IV SCH ×5 (00:18→22:42)
[2018-11-14] MEDS: metroNIDAZOLE IV 500 mg/100 ml 500 MG/100 ML BAG IVPB SCH ×3 (03:16→17:29)
--- NOTE | 2018-11-14 04:50 | CON ---
DATE: 11/13/2018 INFECTIOUS DISEASE CONSULTATION REQUESTED BY: Aleksandr Pisano MD and automotive light mechanic, Dr. Bojorquez. HISTORY OF PRESENT ILLNESS: This patient is a 23-year-old female. She was brought to the emergency room by ambulance. This 23-year-old female is now in bed 5 in the ICU. She presented to the emergency room with left-sided weakness and numbness and tingling. She was apparently at home on and started to notice that she started to have left-sided heaviness and tingling in her left arm which went to her head and also some left-sided weakness. She thought it would get better. She lied down and rested and then had her dinner and went to bed, but she woke up 45 minutes later with some jerky movements of the left arm and she tried to get up, but she was not able to as she fell and her leg was weak. Her roommate at that point noticed that she was unresponsive on the ground, and she called 911. The patient was brought via ambulance to the ER. Right now, she is awake and alert. She is able to give history. She is having an EEG done, and they have wrapped all these dressings over her head, but she is awake and alert, able to give history. She still has some left-sided weakness. 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 She said on 09/23/2019 she left to [facility]. Till 10/31/2018, she was in [place] in two weeks for vacation. She started to have diarrhea. She also saw a doctor and was given ofloxacin which she said she took for three days, and she still continues to have diarrhea. She says it is watery, and she says sometimes there is some foamy mucus in it. Denies any blood mixed. She has lost 10 pounds weight, but she says this is over two years or a year. She denies any abdominal pain right now. She did say that she had a headache from 11/01/2018 for few days before this symptom and headache prior to having this tingling sensation. She denies any chest pain. No nausea. No constipation. She does have diarrhea. She went, however, yesterday once and at this time when I was examining her, she started to feel that she has to go. There is no sample of stool collected so far, so I told the nurse to collect one, but the nurse later on told me that it was all watery and she could not collect anything, so it will be important to get a sample, but she denies any major illnesses in the past. She also went to the school nurse, and she tells me that H. pylori was negative. There were some other tests done, but she is not sure of what tests were done, but we will have to repeat them. ALLERGIES: SHE IS NOT ALLERGIC TO ANY MEDICINE. FAMILY HISTORY: Mother and father are both 60 to 63 years old. Mother has diabetes and hypothyroidism and father has hypertension, but there is no bleeding or clotting problem. No CA and no heart disease in the family. SOCIAL HISTORY: She comes from [facility] in [facility], and she is here for masters in [employer] science. She did say that she drank home filtered water, and she ate a lot of different foods there. She is, however, vegetarian. She denies any alcohol, tobacco or drug abuse. She has no primary at this time, but admitted under Dr. Pisano now. REVIEW OF SYSTEMS: She denies any fever or chills. She had no blurry vision or change in vision. She has had no chest pain. No shortness of breath. She denies any upper respiratory symptoms of having any cough, cold or any ear problems or runny nose. She did say she had headache the week prior to this episode of having numbness and tingling and weakness. She has loose stools, she says, but denies any nausea, vomiting or abdominal pain. Musculoskeletal, she comes in with numbness and tingling. She was shaking and may have had seizure. Neurologist is following. She denies any skin rash here or in [place], did come in with left-sided weakness. She has not had any parasite treatments in the past. She says as far as she remembers the past medical history is only significant for GERD. She denies any smoking or drinking and no drug abuse. No respiratory issues. She says H. pylori was negative. No previous surgeries. No anesthesia. MEDICATIONS: At this time, she is on Tylenol. She is getting Cipro 400 mg twice a day which was started yesterday with consultation. Ferrous sulfate she is on as she is anemic. She is on heparin 25,000 units under the neurologist guidance. She is also started on Keppra today. She remains on lorazepam. She is on metronidazole 500 mg every 8 hours as she has chronic diarrhea now and Giardia also is in differentials. Pantoprazole. She is on Saccharomyces, and she is getting IV fluids at this time. PHYSICAL EXAMINATION: VITAL SIGNS: We find her temperature as she had 100.6 yesterday, heart rate of 118, blood pressure 102/63, respirations are 18. Blood pressure when I saw her today was 98/62, heart rate of 100, temperature was 98.7, pulse 19. GENERAL: She had only one BM yesterday, and today she did go when I was there. HEENT: Head is atraumatic, normocephalic. Pupils are reacting to light. Tongue was dry. NECK: Supple. JVP is flat. LUNGS: Clear to auscultation. No crackles or rales present. HEART: S1 and S2 are regular. ABDOMEN: Soft, mildly distended. I would say bowel sounds are present. EXTREMITIES: Have no edema, clubbing or cyanosis. She does have left-sided weakness. Left upper extremity, she was able to however elevate it from the bed and also the left leg. She was able to elevate, I would say 3/5 on the left. LABORATORY DATA: She is being worked up for hypercoagulable state. Echo bubble study is pending as there was some note by the cardiology thinking she may have patent foramen ovale. Her other labs are noted. Labs show white count is 8.9. She came with a white count of 8.6, hemoglobin was 9.8, hematocrit 36.2, platelet count is 268. Hemoglobin is 8.5 right now, may have dropped with hydration. Differential, neutrophils are 73, lymphs are 17.5, and ESR is only 10 which is normal. Serology was done. RPR is negative. Hepatitis A, B and C are negative. UA is negative. Chemistry shows today, 11/13/2018, potassium is 3.2, sodium is 134, chlorides are 108, CO2 is 18, BUN is 6, creatinine is 0.4. AST is 37, is elevated. Total proteins of 5.6. Albumin is 2.1, is low. Free T4 is 1.4. ASSESSMENT AND PLAN: Since this is a young female and she did have a fever, we would like to do HIV 1 and 2 also to be sure that there is nothing. We have ordered Cryptococcal and Giardia. She may have traveler's diarrhea, but at this point, she has chronic diarrhea. May need a gastroenterology evaluation. Once she is stable, should get a CT scan of the abdomen and pelvis if possible. We will look also for Clostridium difficile and fecal leukocytes. They have all been ordered and also for ova and parasites. We will continue with Frank and Shahram at this time. We will follow. This numbness and tingling seems to be unrelated issue, but we will see if this ties down with the same diagnosis. It is unclear at this time. We will wait for her to have stool studies done. Jameson Barth MD
[2018-11-14] MEDS: Ciprofloxacin 400mg/200ml D5W 400 MG/200 ML BAG IVPB SCH (05:34)
[2018-11-14 07:27] LABS: MCV 67.1 fL (80.0-100.0)
--- NOTE | 2018-11-14 08:24 | CP.PCM.PN ---
Subjective - Date & Time of Evaluation Date of Evaluation: 11/14/18 Time of Evaluation: 11:00 - Subjective Subjective: PGY1 Medicine progress note for Dr. Pisano's service Pt was seen and examined at bedside. Pt is resting comfortably. She reports feeling somewhat better. She reports her sensation and strength in the left side continues to improve. She denies fever, chills, chest pain, sob, abdominal pain, n/v/d, hematochezia, melena, new bruising, headache, dizziness, lightheadedness, syncope, dysphagia, aphasia, bowel or bladder incontinence. No acute events overnight. Pt no longer having diarrhea as per pt and RN. Objective - Vital Signs/Intake and Output Vital Signs (last 24 hours): Temp Pulse Resp BP Pulse Ox 99.6 F 86 16 97/54 L 100 11/14/18 04:00 11/14/18 07:00 11/14/18 07:00 11/14/18 05:06 11/14/18 07:00 Intake and Output: 11/14/18 11/14/18 06:59 18:59 Intake Total 867.4 376.4 Output Total 2300 Balance -1432.6 376.4 - Medications Medications: Current Medications Acetaminophen (Tylenol 325mg Tab) 650 mg PO Q6 PRN PRN Reason: Fever >100.4 F Last Admin: 11/13/18 00:01 Dose: 650 mg Ferrous Sulfate (Feosol Liq) 300 mg PO DAILY [facility] Last Admin: 11/13/18 09:33 Dose: 300 mg Sodium Chloride (Sodium Chloride 0.9%) 1,000 mls @ 100 mls/hr IV .Q10H [facility] Last Admin: 11/14/18 07:52 Dose: Not Given Heparin Sodium/Sodium Chloride (Heparin 56773 Units/250ml 1/2 Normal Saline) 25,000 units in 250 mls @ 6.891 mls/hr IV .Q24H PRN; Protocol PRN Reason: PROTOCOL Last Admin: 11/13/18 17:56 Dose: 14.88 units/kg/hr, 5.7 mls/hr Ciprofloxacin (Cipro 400mg/200ml Dsw) 400 mg in 200 mls @ 133 mls/hr IVPB Q12H [facility]; Protocol Last Admin: 11/14/18 05:34 Dose: 133 mls/hr Metronidazole (Flagyl) 500 mg in 100 mls @ 100 mls/hr IVPB Q8H [facility]; Protocol Last Admin: 11/14/18 03:16 Dose: 100 mls/hr Levetiracetam 500 mg/ Dextrose 105 mls @ 420 mls/hr IVPB Q12H [facility] Lorazepam (Ativan) 0.5 mg IVP Q6H PRN PRN Reason: Agitation Last Admin: 11/13/18 09:39 Dose: 0.5 mg Pantoprazole Sodium (Protonix Ec Tab) 40 mg PO DAILY [facility] Last Admin: 11/13/18 09:33 Dose: 40 mg Saccharomyces Boulardii (Florastor) 250 mg PO BID [facility] Last Admin: 11/13/18 17:52 Dose: 250 mg - Labs Labs: 11/13/18 05:47 11/13/18 05:47 PT 15.9 SECONDS (9.7-12.2) H 11/11/18 23:41 INR 1.5 11/11/18 23:41 APTT 53 SECONDS (21-34) H D 11/14/18 06:54 - Additional Findings Additional findings: - Constitutional Appears: Non-toxic, No Acute Distress - Head Exam Head Exam: ATRAUMATIC, NORMAL INSPECTION - Eye Exam Eye Exam: EOMI, Normal appearance, PERRL - ENT Exam ENT Exam: Mucous Membranes Moist - Neck Exam Neck Exam: Full ROM - Respiratory Exam Respiratory Exam: Clear to Ausculation Bilateral. absent: Accessory Muscle Use, Rales, Rhonchi, Wheezes, Respiratory Distress - Cardiovascular Exam Cardiovascular Exam: Tachycardia, REGULAR RHYTHM, +S1, +S2 - GI/Abdominal Exam GI & Abdominal Exam: Soft, Normal Bowel Sounds. absent: Distended, Firm, Guarding, Tenderness - Extremities Exam Extremities Exam: Normal Capillary Refill, Normal Inspection. absent: Calf Tenderness, Pedal Edema, Tenderness - Back Exam Back Exam: NORMAL INSPECTION - Neurological Exam Neurological Exam: Alert, Awake, CN II-XII Intact Neuro motor strength exam: Left Upper Extremity: 4, Right Upper Extremity: 5, Left Lower Extremity: 4, Right Lower Extremity: 5 Additional comments: normal babinsky (-) left upper extremity pronator drift Dermatomal sensation is equal in upper and lower extremities (+) proprioception is intact in lower extremities - Psychiatric Exam Psychiatric exam: Normal Affect, Normal Mood - Skin Skin Exam: Dry, Normal Color, Warm Assessment and Plan - Assessment and Plan (Free Text) Assessment: 23F w/ recent travel to [place] (with 2 weeks of diarrhea) presents w/ code stroke, found to have R parietal infarct likely 2/2 right cortical venous thrombosis, with possible PFO noted on ECHO. Pt noted to have jerking like movements on 11/12-11/13. Pt placed on Keppra and has been without seizures since. 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 no significant mass effect or midline shift. cortical venous thrombosis leading up to the hemorrhagic venous infarction in the right posterior parietal lobe. MRI C spine (11/12/18): normal pre and post contrast MRI of the cervical spine. - CTA head and neck (11/11/18): 1. no evidence of endoluminal thrombus, occlusion, or definite significant stenosis in the intracranial arteries. 2. No evidence of hemodynamically significant stenosis in the internal carotid arteries. 3.Patent bilateral vertebral arteries. - CT Head (11/11/18): faint hypodensity in the right parietal lobe consistent with infarction. - Repeat head CT 11/13 shows interval increase in size of the previously seen vague hypodense area in the superior right frontal parietal region likely repr esent acute infarct. no definite evidence of new hematoma or significant parenchymal hemorrhage. Possibility of petechial hemorrhage in the infarcted area is not totally excluded. no evidence of significant mass effect or midline shift. - Head CT 11/14 shows no significant interval changes since prior study. Encephalomalacia at the right superior frontal parietal lobe may be subacute infarct. - Q1 neuro checks - Heparin gtt to bridge to coumadin INR goal of 2-3 - ativan prn seizure activity - Keppra 500 mg IVPB 12h - f/u neuro recs-- Dr. Sandoval Cardiac - continue IV NS @ 100ml/hr - tylenol for fever - troponin negative - continue to monitor vitals - Echo 11/12: Left ventricle normal in size, EF 60-65%, bubble study is suggestive of possible PFO, transmitral doppler flow pattern is Grade I abnormal relaxation pattern, no pericardial effusion. - F/u Venous lower extremity duplexes - F/u Cardiac consult, Dr. Jamey Martino - O2 100% on RA - CXR 11/11: no focal consolidation - no acute issues GI - Regular Diet - FOBT is positive, possibly due to iron pills - GI ppx-- Protonix - fecal leukocytes negative - hepatitis panel is negative - F/u abdominal/Pelvic CT with PO/IV contrast - Dr. Garduno, GI, consulted for potential malabsorption - f/u fecal fat Renal - BUN/Cr is stable - continue to replete electrolytes as needed - continue NS at 100ml/hr Heme/Onc - Microcytic Anemia - H/H is stable - MCV 64.2 - Iron 24, TIBC 204, % iron saturation 204, Ferritin 12 - replete with ferrus sulfate - monitor CBC - possibly hypercoagulopathy - vitb12 is normal - F/u hypercoag labs - F/u Dr. Garcia recs - bridging to coumadin goal of 2-3 Endo - TSH/T4 is normal ID - Pt afebrile - no leukocytosis, but with tachycardia - f/u fecal cx - f/u fecal ova and parasites - Cdiff toxin negative - f/u Lyme panel - Abx switched to rocephin 2g daily as per ID saccharomyces for ppx - ID consult-- Dr. Barth - HIV is negative - RPR is nonreactive - Blood culture prelim is negative x 48 hours - urine culture is negative - f/u abd/pelv CT with PO/IV contrast to r/o infectious process PPx - Tylenol PRN for fever - DVT ppx-- on Heparin drip as bridge to coumadin - GI ppx-- protonix - F/u Rn Lpn Lvn recs, BMI of 14 - F/u pt/ot eval Case discussed with Dr. Aliya Hayes PGY1
[2018-11-14] MEDS: Pantoprazole 40 mg EC Tab PO SCH (09:13)
[2018-11-14] MEDS: Saccharomyces Boulardi 250 mg Cap PO SCH ×2 (09:13→17:28)
[2018-11-14] MEDS: Ferrous Sulfate 300 mg/5 mL Liq UD PO SCH (09:13)
[2018-11-14 11:13] LABS: C DIFF TOXIN A B NEGATIVE (NEGATIVE)
[2018-11-14 11:44] LABS: ALB/GLOB RATIO 0.6 (1.0-2.1); ALBUMIN 1.9 g/dL (3.5-5.0); ALT/SGPT 38 U/L (9-52); AST/SGOT 31 U/L (14-36); BLOOD UREA NITROGEN 2 mg/dL (7-17); CALCIUM 7.3 mg/dl (8.6-10.4); GFR NON-AFRICAN AMERICAN > 60
[2018-11-14 11:56] LABS: CK-MB < 0.22 ng/mL (0.0-3.38)
--- NOTE | 2018-11-14 12:17 | CP.PCM.PN ---
Subjective - Date & Time of Evaluation Date of Evaluation: 11/14/18 Time of Evaluation: 12:08 - Subjective Subjective: No events, improvement in left arm and left leg since yesterday, today was able to bear her weight and walk, left arm still needs to watch the hand for activity. Denies headache, still has some loose stools. Objective - Vital Signs/Intake and Output Vital Signs (last 24 hours): Temp Pulse Resp BP Pulse Ox 98.9 F 99 H 20 108/69 100 11/14/18 08:00 11/14/18 11:00 11/14/18 11:00 11/14/18 10:06 11/14/18 11:00 Intake and Output: 11/14/18 11/14/18 06:59 18:59 Intake Total 867.4 1019.2 Output Total 2300 500 Balance -1432.6 519.2 - Medications Medications: Current Medications Acetaminophen (Tylenol 325mg Tab) 650 mg PO Q6 PRN PRN Reason: Fever >100.4 F Last Admin: 11/13/18 00:01 Dose: 650 mg Ferrous Sulfate (Feosol Liq) 300 mg PO DAILY [facility] Last Admin: 11/14/18 09:13 Dose: 300 mg Sodium Chloride (Sodium Chloride 0.9%) 1,000 mls @ 100 mls/hr IV .Q10H [facility] Last Admin: 11/14/18 07:52 Dose: Not Given Heparin Sodium/Sodium Chloride (Heparin 58588 Units/250ml 1/2 Normal Saline) 25,000 units in 250 mls @ 6.891 mls/hr IV .Q24H PRN; Protocol PRN Reason: PROTOCOL Last Admin: 11/13/18 17:56 Dose: 14.88 units/kg/hr, 5.7 mls/hr Ciprofloxacin (Cipro 400mg/200ml Dsw) 400 mg in 200 mls @ 133 mls/hr IVPB Q12H [facility]; Protocol Last Admin: 11/14/18 05:34 Dose: 133 mls/hr Metronidazole (Flagyl) 500 mg in 100 mls @ 100 mls/hr IVPB Q8H [facility]; Protocol Last Admin: 11/14/18 10:14 Dose: 100 mls/hr Levetiracetam 500 mg/ Dextrose 105 mls @ 420 mls/hr IVPB Q12H [facility] Last Admin: 11/14/18 09:13 Dose: 420 mls/hr Magnesium Sulfate/Dextrose (Magnesium Sulfate 1 Gm/100 Ml D5w) 1 gm in 100 mls @ 300 mls/hr IVPB Q30M [facility] Stop: 11/14/18 13:04 Lorazepam (Ativan) 0.5 mg IVP Q6H PRN PRN Reason: Agitation Last Admin: 11/13/18 09:39 Dose: 0.5 mg Pantoprazole Sodium (Protonix Ec Tab) 40 mg PO DAILY [facility] Last Admin: 11/14/18 09:13 Dose: 40 mg Saccharomyces Boulardii (Florastor) 250 mg PO BID [facility] Last Admin: 11/14/18 09:13 Dose: 250 mg - Labs Labs: 11/13/18 05:47 11/14/18 11:14 PT 15.9 SECONDS (9.7-12.2) H 11/11/18 23:41 INR 1.5 11/11/18 23:41 APTT 53 SECONDS (21-34) H D 11/14/18 06:54 - Additional Findings Additional findings: * HEENT ZEB * Neck Supple * Chest Clear * CVS Regular * PA soft, increased bs * ext no edema, skin turgor low to normal * [employer] SU[employer] awake left arm 4/5, reduced positional sense, left leg, 5/5, normal sensation rest, wnl * Assessment and Plan - Assessment and Plan (Free Text) Assessment: * Right fronto-parital stroke due to venous thrombosis, had seizure likel activity started on kepra and on video eeg * Dehydration at time of presentation likely cause of above * W/u for hypercoaguabilitiy sent * Dehydration, secondary to chronic diarrhea, w/u sent for infections etiology, on cipro and flagyl * Malnutrition, low iron, b12, albumin, globulin, bicarb weight BMI of 14, needs gi evaluation for malabsorption w/u Plan: * Will start coumedin if repeat ct negative * spoke to primary team about gi w/u * PT/OT * encourage po intake * See orders for detail.
[2018-11-14 12:35] LABS: FECAL LEUKOCYTES NEGATIVE (NEGATIVE)
[2018-11-14] MEDS: Magnesium Sulfate 1 gm in D5W 1 GM/100 ML BAG IVPB SCH (13:13)
--- NOTE | 2018-11-14 15:17 | CT ---
Date of service: 11/14/2018 PROCEDURE: CT HEAD WITHOUT CONTRAST. HISTORY: eval ? hemorrage COMPARISON: Comparison is made to the previous study dated 11/13/2018 TECHNIQUE: Axial computed tomography images were obtained through the head/brain without intravenous contrast. Radiation dose: Total exam DLP = 1103.21 mGy-cm. This CT exam was performed using one or more of the following dose reduction techniques: Automated exposure control, adjustment of the mA and/or kV according to patient size, and/or use of iterative reconstruction technique. FINDINGS: HEMORRHAGE: No intracranial hemorrhage. BRAIN: Again noted is focal encephalomalacia at the right superior frontal temporal lobe. No significant interval change noted since the prior study. No atrophy or chronic microvascular ischemic changes. VENTRICLES: Unremarkable. No hydrocephalus. CALVARIUM: Unremarkable. PARANASAL SINUSES: Unremarkable as visualized. No significant inflammatory changes. MASTOID AIR CELLS: Unremarkable as visualized. No inflammatory changes. OTHER FINDINGS: None. IMPRESSION: No significant interval changes noted since the prior study. Focal encephalomalacia at the right superior frontal parietal lobe likely represent subacute infarct.
[2018-11-14] MEDS ORDERED: Iohexol 240 (50 ml) PO ONE (16:45)
--- NOTE | 2018-11-14 17:17 | CP.PCM.PN ---
Subjective - Date & Time of Evaluation Date of Evaluation: 11/14/18 Time of Evaluation: 17:15 - Subjective Subjective: Neurology Progress Note Ms. Christopher was seen and examined today at bedside in the ICU. She had improvement in her left side strength and was able to stand up today. There were no acute events overnight and no reported seizures. Objective - Vital Signs/Intake and Output Vital Signs (last 24 hours): Temp Pulse Resp BP Pulse Ox 98.6 F 101 H 29 H 104/68 99 11/14/18 15:31 11/14/18 17:00 11/14/18 17:00 11/14/18 16:06 11/14/18 17:00 Intake and Output: 11/14/18 11/14/18 06:59 18:59 Intake Total 867.4 2423.1 Output Total 2300 1000 Balance -1432.6 1423.1 - Medications Medications: Current Medications Acetaminophen (Tylenol 325mg Tab) 650 mg PO Q6 PRN PRN Reason: Fever >100.4 F Last Admin: 11/13/18 00:01 Dose: 650 mg Ferrous Sulfate (Feosol Liq) 300 mg PO DAILY [facility] Last Admin: 11/14/18 09:13 Dose: 300 mg Sodium Chloride (Sodium Chloride 0.9%) 1,000 mls @ 100 mls/hr IV .Q10H [facility] Last Admin: 11/14/18 14:42 Dose: Not Given Heparin Sodium/Sodium Chloride (Heparin 51649 Units/250ml 1/2 Normal Saline) 25,000 units in 250 mls @ 6.891 mls/hr IV .Q24H PRN; Protocol PRN Reason: PROTOCOL Last Admin: 11/13/18 17:56 Dose: 14.88 units/kg/hr, 5.7 mls/hr Metronidazole (Flagyl) 500 mg in 100 mls @ 100 mls/hr IVPB Q8H [facility]; Protocol Last Admin: 11/14/18 10:14 Dose: 100 mls/hr Levetiracetam 500 mg/ Dextrose 105 mls @ 420 mls/hr IVPB Q12H [facility] Last Admin: 11/14/18 09:13 Dose: 420 mls/hr Ceftriaxone Sodium 2 gm/ (Sodium Chloride) 100 mls @ 100 mls/hr IVPB DAILY [facility]; Protocol Lorazepam (Ativan) 0.5 mg IVP Q6H PRN PRN Reason: Agitation Last Admin: 11/13/18 09:39 Dose: 0.5 mg Pantoprazole Sodium (Protonix Ec Tab) 40 mg PO DAILY [facility] Last Admin: 11/14/18 09:13 Dose: 40 mg Saccharomyces Boulardii (Florastor) 250 mg PO BID [facility] Last Admin: 11/14/18 09:13 Dose: 250 mg - Labs Labs: 11/13/18 05:47 11/14/18 11:14 PT 15.9 SECONDS (9.7-12.2) H 11/11/18 23:41 INR 1.5 11/11/18 23:41 APTT 53 SECONDS (21-34) H D 11/14/18 06:54 - Constitutional Appears: Well - Head Exam Head Exam: ATRAUMATIC, NORMAL INSPECTION, NORMOCEPHALIC - Eye Exam Eye Exam: EOMI, Normal appearance, PERRL Pupil Exam: NORMAL ACCOMODATION, PERRL - ENT Exam ENT Exam: Mucous Membranes Moist, Normal Exam - Neck Exam Neck Exam: Full ROM, Normal Inspection. absent: Lymphadenopathy - Respiratory Exam Respiratory Exam: Clear to Ausculation Bilateral, NORMAL BREATHING PATTERN - Cardiovascular Exam Cardiovascular Exam: REGULAR RHYTHM, +S1, +S2. absent: Murmur - GI/Abdominal Exam GI & Abdominal Exam: Soft, Normal Bowel Sounds. absent: Tenderness - Rectal Exam Rectal Exam: NORMAL INSPECTION - Exam Exam: Circumcision, NORMAL INSPECTION External exam: NORMAL EXTERNAL EXAM Speculum exam: NORMAL SPECULUM EXAM Bimanual exam: NORMAL BIMANUAL EXAM - Extremities Exam Extremities Exam: Full ROM, Normal Capillary Refill, Normal Inspection. absent: Joint Swelling, Pedal Edema - Back Exam Back Exam: NORMAL INSPECTION - Neurological Exam Neurological Exam: Abnormal Gait, Alert, Awake, CN II-XII Intact, Oriented x3 Neuro motor strength exam: Left Upper Extremity: 3, Right Upper Extremity: 5, Le ft Lower Extremity: 4, Right Lower Extremity: 5 - Psychiatric Exam Psychiatric exam: Normal Affect, Normal Mood - Skin Skin Exam: Dry, Intact, Normal Color, Warm Assessment and Plan (1) Cerebral venous thrombosis of cortical vein Assessment & Plan: I recommend starting coumadin for an INR of 2-3 since the patient is stable and improving. CT scan of the head is stable. Continue Keppra 500 mg BID. Status: Acute
[2018-11-14] MEDS ORDERED: Iodixanol 320 mg/ml 150 ml Bottle IV ONE (18:21)
--- NOTE | 2018-11-14 18:37 | CP.PCM.PN ---
Subjective - Date & Time of Evaluation Date of Evaluation: 11/14/18 Time of Evaluation: 14:35 - Subjective Subjective: dictated Objective - Vital Signs/Intake and Output Vital Signs (last 24 hours): Temp Pulse Resp BP Pulse Ox 98.6 F 96 H 21 104/63 100 11/14/18 15:31 11/14/18 18:00 11/14/18 18:00 11/14/18 17:06 11/14/18 18:00 Intake and Output: 11/14/18 11/14/18 06:59 18:59 Intake Total 867.4 3478.8 Output Total 2300 1000 Balance -1432.6 2478.8 - Medications Medications: Current Medications Acetaminophen (Tylenol 325mg Tab) 650 mg PO Q6 PRN PRN Reason: Fever >100.4 F Last Admin: 11/13/18 00:01 Dose: 650 mg Ferrous Sulfate (Feosol Liq) 300 mg PO DAILY [facility] Last Admin: 11/14/18 09:13 Dose: 300 mg Sodium Chloride (Sodium Chloride 0.9%) 1,000 mls @ 100 mls/hr IV .Q10H [facility] Last Admin: 11/14/18 14:42 Dose: Not Given Heparin Sodium/Sodium Chloride (Heparin 57721 Units/250ml 1/2 Normal Saline) 25,000 units in 250 mls @ 6.891 mls/hr IV .Q24H PRN; Protocol PRN Reason: PROTOCOL Last Admin: 11/13/18 17:56 Dose: 14.88 units/kg/hr, 5.7 mls/hr Metronidazole (Flagyl) 500 mg in 100 mls @ 100 mls/hr IVPB Q8H [facility]; Protocol Last Admin: 11/14/18 17:29 Dose: 100 mls/hr Levetiracetam 500 mg/ Dextrose 105 mls @ 420 mls/hr IVPB Q12H [facility] Last Admin: 11/14/18 09:13 Dose: 420 mls/hr Ceftriaxone Sodium 2 gm/ (Sodium Chloride) 100 mls @ 100 mls/hr IVPB DAILY [facility]; Protocol Lorazepam (Ativan) 0.5 mg IVP Q6H PRN PRN Reason: Agitation Last Admin: 11/13/18 09:39 Dose: 0.5 mg Pantoprazole Sodium (Protonix Ec Tab) 40 mg PO DAILY [facility] Last Admin: 11/14/18 09:13 Dose: 40 mg Saccharomyces Boulardii (Florastor) 250 mg PO BID [facility] Last Admin: 11/14/18 17:28 Dose: 250 mg - Labs Labs: 11/13/18 05:47 11/14/18 11:14 PT 15.9 SECONDS (9.7-12.2) H 11/11/18 23:41 INR 1.5 11/11/18 23:41 APTT 53 SECONDS (21-34) H D 11/14/18 06:54
[2018-11-14 20:23] LABS: INR 1.8; PROTHROMBIN TIME 19.7 SECONDS (9.7-12.2)
--- NOTE | 2018-11-14 20:27 | CP.PCM.PN ---
Subjective - Date & Time of Evaluation Date of Evaluation: 11/14/18 Time of Evaluation: 10:15 - Subjective Subjective: Patient seen and evaluated sinus tachycardia No cardiac symptoms Physical examination Appears: Non-toxic, No Acute Distress - Head Exam Head Exam: ATRAUMATIC, NORMAL INSPECTION Additional comments: bandages around EEG electrodes - Eye Exam Eye Exam: EOMI, Normal appearance, PERRL - ENT Exam ENT Exam: Mucous Membranes Moist - Neck Exam Neck Exam: Full ROM - Respiratory Exam Respiratory Exam: Clear to Ausculation Bilateral. absent: Accessory Muscle Use, Rales, Rhonchi, Wheezes, Respiratory Distress - Cardiovascular Exam Cardiovascular Exam: Tachycardia (at approximately 100), REGULAR RHYTHM, +S1, +S2 - GI/Abdominal Exam GI & Abdominal Exam: Soft, Normal Bowel Sounds. absent: Distended, Firm, Guarding, Tenderness - Extremities Exam Extremities Exam: Normal Capillary Refill, Normal Inspection. absent: Calf Tenderness, Pedal Edema, Tenderness - Back Exam Back Exam: NORMAL INSPECTION - Neurological Exam Neurological Exam: Alert, Awake, CN II-XII Intact Neuro motor strength exam: Left Upper Extremity: 4, Right Upper Extremity: 5, Left Lower Extremity: 4, Right Lower Extremity: 5 Additional comments: normal babinsky (+) left upper extremity pronator drift Dermatomal sensation is equal in upper and lower extremities (+) proprioception is intact in lower extremities - Psychiatric Exam Psychiatric exam: Normal Affect, Normal Mood - Skin Skin Exam: Dry, Normal Color, Warm Assessment and Plan - Assessment and Plan (Free Text) Assessment: 23F w/ recent travel to [place] (with 2 weeks of diarrhea) presents w/ code stroke, found to have R parietal infarct likely 2/2 right cortical venous thrombosis, with possible PFO noted on ECHO. Pt noted to have jerking like movements on 11/12-11/13. Placed on video EEG monitoring. 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 no significant mass effect or midline shift. cortical venous thrombosis leading up to the hemorrhagic venous infarction in the right posterior parietal lobe. MRI C spine (11/12/18): normal pre and post contrast MRI of the cervical spine. - CTA head and neck (11/11/18): 1. no evidence of endoluminal thrombus, occlusion, or definite significant stenosis in the intracranial arteries. 2. No evidence of hemodynamically significant stenosis in the internal carotid arteries. 3.Patent bilateral vertebral arteries. - CT Head (11/11/18): faint hypodensity in the right parietal lobe consistent with infarction. - Repeat head CT 11/13 shows interval increase in size of the previously seen vague hypodense area in the superior right frontal parietal region likely represent acute infarct. no definite evidence of new hematoma or significant parenchymal hemorrhage. Possibility of petechial hemorrhage in the infarcted area is not totally excluded. no evidence of significant mass effect or midline shift. - Q1 neuro checks - Continue Heparin drip per neuro - continue to monitor for seizure activity via continuous video EEG - ativan prn seizure activity - Keradhara recommended - f/u neuro recs-- Dr. Sandoval Cardiac - continue IV NS @ 100ml/hr - tylenol for fever - troponin negative - continue to monitor vitals - Echo 11/12: Left ventricle normal in size, EF 60-65%, bubble study is suggestive of possible PFO, transmitral doppler flow pattern is Grade I abnormal relaxation pattern, no pericardial effusion. - F/u Venous lower extremity duplexes Pulm - O2 100% on RA - CXR 11/11: no focal consolidation - no acute issues GI - Regular Diet - f/u fecal occult blood - GI ppx-- Protonix - stool studies as below for cause of diarrhea - hepatitis panel is negative Renal - BUN/Cr is stable - continue to replete electrolytes as needed - continue NS at 100ml/hr Heme/Onc - Microcytic Anemia - H/H is stable - MCV 64.2 - Iron 24, TIBC 204, % iron saturation 204, Ferritin 12 - replete with ferrus sulfate - monitor CBC - possibly hypercoagulopathy - vitb12 is normal - F/u hypercoag labs - F/u Dr. Garcia recs Endo - TSH/T4 is normal ID - Pt afebrile - no leukocytosis, but with tachycardia (100) - f/u fecal cx - f/u fecal ova and parasites - f/u c.difficle - f/u Lyme panel - start ciprofloxacin and flagyl saccharomyces for ppx - ID consult-- Dr. Barth - HIV is negative - RPR is nonreactive - Blood culture prelim is negative x 24 hours - urine culture is negative PPx - Tylenol PRN for fever - DVT ppx-- on Heparin drip - GI ppx-- protonix - F/u [employer] recs, BMI of 14 - F/u pt/ot eval Objective - Vital Signs/Intake and Output Vital Signs (last 24 hours): Temp Pulse Resp BP Pulse Ox 98.6 F 98 H 22 110/67 100 11/14/18 15:31 11/14/18 19:00 11/14/18 19:00 11/14/18 18:06 11/14/18 19:00 Intake and Output: 11/14/18 11/15/18 18:59 06:59 Intake Total 3478.8 105.7 Output Total 1000 Balance 2478.8 105.7 - Medications Medications: Current Medications Acetaminophen (Tylenol 325mg Tab) 650 mg PO Q6 PRN PRN Reason: Fever >100.4 F Last Admin: 11/13/18 00:01 Dose: 650 mg Ferrous Sulfate (Feosol Liq) 300 mg PO DAILY [facility] Last Admin: 11/14/18 09:13 Dose: 300 mg Sodium Chloride (Sodium Chloride 0.9%) 1,000 mls @ 100 mls/hr IV .Q10H [facility] Last Admin: 11/14/18 20:09 Dose: 100 mls/hr Heparin Sodium/Sodium Chloride (Heparin 98241 Units/250ml 1/2 Normal Saline) 25,000 units in 250 mls @ 6.891 mls/hr IV .Q24H PRN; Protocol PRN Reason: PROTOCOL Last Admin: 11/13/18 17:56 Dose: 14.88 units/kg/hr, 5.7 mls/hr Metronidazole (Flagyl) 500 mg in 100 mls @ 100 mls/hr IVPB Q8H [facility]; Protocol Last Admin: 11/14/18 17:29 Dose: 100 mls/hr Levetiracetam 500 mg/ Dextrose 105 mls @ 420 mls/hr IVPB Q12H [facility] Last Admin: 11/14/18 20:07 Dose: 420 mls/hr Ceftriaxone Sodium 2 gm/ (Sodium Chloride) 100 mls @ 100 mls/hr IVPB DAILY [facility]; Protocol Lorazepam (Ativan) 0.5 mg IVP Q6H PRN PRN Reason: Agitation Last Admin: 11/13/18 09:39 Dose: 0.5 mg Pantoprazole Sodium (Protonix Ec Tab) 40 mg PO DAILY [facility] Last Admin: 11/14/18 09:13 Dose: 40 mg Saccharomyces Boulardii (Florastor) 250 mg PO BID [facility] Last Admin: 11/14/18 17:28 Dose: 250 mg Warfarin Sodium (Coumadin) 3 mg PO 1800 [facility] Stop: 11/15/18 18:01 - Labs Labs: 11/13/18 05:47 11/14/18 11:14 PT 19.7 SECONDS (9.7-12.2) H 11/14/18 20:05 INR 1.8 11/14/18 20:05 APTT 53 SECONDS (21-34) H D 11/14/18 06:54
--- NOTE | 2018-11-14 21:29 | CP.PCM.PN ---
Subjective - Date & Time of Evaluation Date of Evaluation: 11/14/18 Time of Evaluation: 19:00 - Subjective Subjective: Feels strength is improving Objective - Vital Signs/Intake and Output Vital Signs (last 24 hours): Temp Pulse Resp BP Pulse Ox 98.6 F 102 H 21 108/70 100 11/14/18 15:31 11/14/18 21:06 11/14/18 21:06 11/14/18 21:06 11/14/18 21:06 Intake and Output: 11/14/18 11/15/18 18:59 06:59 Intake Total 3478.8 105.7 Output Total 1000 Balance 2478.8 105.7 - Medications Medications: Current Medications Acetaminophen (Tylenol 325mg Tab) 650 mg PO Q6 PRN PRN Reason: Fever >100.4 F Last Admin: 11/13/18 00:01 Dose: 650 mg Ferric Sodium Gluconate Complex (Ferrlecit) 125 mg IVPB DAILY [facility] Stop: 11/23/18 10:01 Ferrous Sulfate (Feosol Liq) 300 mg PO DAILY [facility] Last Admin: 11/14/18 09:13 Dose: 300 mg Sodium Chloride (Sodium Chloride 0.9%) 1,000 mls @ 100 mls/hr IV .Q10H [facility] Last Admin: 11/14/18 20:09 Dose: 100 mls/hr Heparin Sodium/Sodium Chloride (Heparin 26583 Units/250ml 1/2 Normal Saline) 25,000 units in 250 mls @ 6.891 mls/hr IV .Q24H PRN; Protocol PRN Reason: PROTOCOL Last Admin: 11/13/18 17:56 Dose: 14.88 units/kg/hr, 5.7 mls/hr Metronidazole (Flagyl) 500 mg in 100 mls @ 100 mls/hr IVPB Q8H [facility]; Protocol Last Admin: 11/14/18 17:29 Dose: 100 mls/hr Levetiracetam 500 mg/ Dextrose 105 mls @ 420 mls/hr IVPB Q12H [facility] Last Admin: 11/14/18 20:07 Dose: 420 mls/hr Ceftriaxone Sodium 2 gm/ (Sodium Chloride) 100 mls @ 100 mls/hr IVPB DAILY [facility]; Protocol Lorazepam (Ativan) 0.5 mg IVP Q6H PRN PRN Reason: Agitation Last Admin: 11/13/18 09:39 Dose: 0.5 mg Pantoprazole Sodium (Protonix Ec Tab) 40 mg PO DAILY [facility] Last Admin: 11/14/18 09:13 Dose: 40 mg Saccharomyces Boulardii (Florastor) 250 mg PO BID [facility] Last Admin: 11/14/18 17:28 Dose: 250 mg - Labs Labs: 11/13/18 05:47 11/14/18 11:14 PT 19.7 SECONDS (9.7-12.2) H 11/14/18 20:05 INR 1.8 11/14/18 20:05 APTT 53 SECONDS (21-34) H D 11/14/18 06:54 - Head Exam Head Exam: ATRAUMATIC - Eye Exam Eye Exam: Normal appearance - ENT Exam ENT Exam: Mucous Membranes Dry - Respiratory Exam Respiratory Exam: NORMAL BREATHING PATTERN - Cardiovascular Exam Cardiovascular Exam: +S1, +S2 - GI/Abdominal Exam GI & Abdominal Exam: Normal Bowel Sounds Assessment and Plan (1) Anemia Assessment & Plan: iron deficiency anemia H/H declining - will add IV iron transfusion support PRN Status: Acute (2) Coagulopathy Assessment & Plan: anticoagulation Status: Acute (3) Cerebral venous thrombosis of cortical vein Assessment & Plan: agree with therapeutic anticoagulation f/u inherited thrombophilia w/u Status: Acute
--- NOTE | 2018-11-14 22:51 | PN ---
DATE: 11/14/2018 SUBJECTIVE: The resident called me that they are holding the Cipro because she had a seizure. The seizure was day before on 11/13/2018 in the morning before I even saw the patient, and she has had no seizures since, however. She has only one BM, and she is feeling better. She says still has numbness and tingling in the left upper arm but left leg is much better. She was able to walk to the bathroom with assistance. She went for a CAT scan of the head and was seen by the neurologist. OBJECTIVE: VITAL SIGNS: T-max is 98.6, heart rate remains tachycardic with 115, respirations are 25, saturation is 100%. HEENT: Head is atraumatic, normocephalic. NECK: Supple. LUNGS: Clear. HEART: S1, S2 tachy. ABDOMEN: Soft, nontender. No guarding, no rigidity present. EXTREMITIES: Have no edema. However, her lactic acid was 2.2 today, so will be repeated after 4 hours again, and she is on IV hydration and her medications, so she was only on Flagyl. I have added Rocephin until we come to know final cultures. On examination, I find she is stable, and labs show white count is 8.9, hemoglobin is 8.5, hematocrit 30.1, platelet count is 243. She had a thrombosis of the cortical vein in the brain, and she is being worked up for coagulopathy, and her stool studies were finally made. C. diff is negative in the blood. Hepatitis A, B, and C negative. Anticardiolipin antibody, IgG antibodies are less than 14 which is negative, and she has stool out occult blood positive, but stool leukocytes are negative so we will wait for the culture report, and ova and parasite also. Suggest that her stool occult blood is positive. C. diff is negative. We are still waiting for the C and S, and ova and parasite. We will continue Rocephin and Flagyl for next few days until we get those reports, and if those are negative, we would discontinue the above, and Cipro was taken away by the resident or the office cashier as lowering the threshold for C. diff. We will follow. Jameson Barth MD [facility] # [id number]
[2018-11-15] MEDS: metroNIDAZOLE IV 500 mg/100 ml 500 MG/100 ML BAG IVPB SCH ×3 (02:07→18:32)
[2018-11-15 06:46] LABS: INR 1.9; PROTHROMBIN TIME 21.2 SECONDS (9.7-12.2)
[2018-11-15 06:55] LABS: ALB/GLOB RATIO 0.5 (1.0-2.1); ALT/SGPT 38 U/L (9-52); AST/SGOT 33 U/L (14-36); BLOOD UREA NITROGEN 2 mg/dL (7-17); CALCIUM 7.6 mg/dl (8.6-10.4); GFR NON-AFRICAN AMERICAN > 60
[2018-11-15 06:56] LABS: BASO % 0.3 % (0.0-2.0); EOS # 0.1 K/uL (0.0-0.7); EOS % 2.5 % (0.0-4.0); HEMOGLOBIN 8.6 g/dL (11.0-16.0); LYMPH # 1.6 K/uL (1.0-4.3); MEAN CORPUSCULAR HGB CONC 28.8 g/dL (33.0-37.0); MEAN PLATELET VOLUME 8.1 fL (7.2-11.7); MONO # 0.3 K/uL (0.0-0.8); MONO % 8.5 % (0.0-10.0); NEUT # 1.7 K/uL (1.8-7.0); NEUT % 45.7 % (50.0-75.0); NRBC % 0.2 % (0.0-2.0); RBC 4.51 Mil/uL (3.80-5.20); RED CELL DISTRIBUTION WIDTH 19.5 % (11.5-14.5); WHITE BLOOD COUNT 3.8 K/uL (4.8-10.8)
[2018-11-15 06:59] LABS: MEAN CELL VOLUME 65.9 fL (81.0-99.0)
--- NOTE | 2018-11-15 07:10 | CP.CCUPN ---
CCU Subjective - Physician Review Subjective (Free Text): Critical care progress note forFide Etienne Patient seen and examined at bedside. No overnight acute events reported. Patient still has residual left sided weakness; however states she feels stronger than last week. Patient reports 1 X non bloody diarrhea last night. No further complaints. Patient denies chest pain, SOB, dizziness, headaches, dysuria, hematuria, constipation. 11/15/18 10:56 CCU Objective - Vital Signs / Intake & Output Vital Signs (Last 4 hours): Vital Signs Temp Pulse Resp BP Pulse Ox 11/15/18 06:06 80 18 89/56 L 100 11/15/18 05:06 74 34 H 90/51 L 100 11/15/18 04:06 75 16 86/50 L 100 11/15/18 04:00 97.3 F L Intake and Output (Last 8hrs): Intake & Output 11/14/18 11/15/18 11/15/18 22:59 06:59 14:59 Intake Total 2013.3 951.3 Output Total 400 700 Balance 1613.3 251.3 Intake: Intake, IV Amount 1051.3 951.3 Right Forearm 45.6 45.6 Right Forearm Anterior 100 100 Right Forearm Posterior 5.7 5.7 Right Upper arm 900 800 Oral 962 Output: Urine 400 700 Urine, Voided 400 700 - Physical Exam Physical Exam Limitations: Negative for: Altered Mental Status Head: Positive for: Atraumatic, Normocephalic Extroacular Muscles: Positive for: EOMI Conjunctiva: Positive for: Normal Mouth: Positive for: Moist Mucous Membranes Neck: Positive for: Normal Range of Motion Respiratory/Chest: Positive for: Clear to Auscultation, Good Air Exchange. Negative for: Accessory Muscle Use Cardiovascular: Positive for: Normal S1, S2. Negative for: Murmurs Abdomen: Positive for: Normal Bowel Sounds. Negative for: Tenderness, Distention Upper Extremity: Positive for: Normal Inspection, Other (ULE 4 - 5/5 strength). Negative for: Cyanosis, Edema Lower Extremity: Positive for: Normal Inspection (LLE 4/5 strength), Other. Negative for: Edema Neurological: Positive for: GCS=15 Skin: Positive for: Warm, Dry, Rashes Psychiatric: Positive for: Oriented x 3 - Medications Active Medications: Active Medications Generic Name Dose Route Start Last Admin Trade Name Freq PRN Reason Stop Dose Admin Acetaminophen 650 mg 11/12/18 20:03 11/13/18 00:01 Tylenol 325mg Tab PO 650 mg Q6 PRN Administration Fever >100.4 F Ferric Sodium Gluconate Complex 125 mg 11/15/18 10:00 Ferrlecit IVPB 11/23/18 10:01 DAILY DONTRELL Ferrous Sulfate 300 mg 11/13/18 10:00 11/14/18 09:13 Feosol Liq PO 300 mg DAILY DONTRELL Administration Heparin Sodium/Sodium Chloride 25,000 units in 250 mls @ 6.891 mls/hr 11/12/18 13:37 11/13/18 17:56 Heparin 13677 Units/250ml 1/2 Normal Saline IV 14.88 units/kg/hr .Q24H PRN 5.7 mls/hr PROTOCOL Administration Protocol 18 UNITS/KG/HR Metronidazole 500 mg in 100 mls @ 100 mls/hr 11/12/18 18:30 11/15/18 02:07 Flagyl IVPB 100 mls/hr Q8H DONTRELL Administration Protocol Levetiracetam 500 mg/ Dextrose 105 mls @ 420 mls/hr 11/14/18 08:00 11/14/18 20:07 IVPB 420 mls/hr Q12H DONTRELL Administration Ceftriaxone Sodium 2 gm/ 100 mls @ 100 mls/hr 11/15/18 10:00 Sodium Chloride IVPB DAILY DONTRELL Protocol Sodium Chloride 1,000 mls @ 100 mls/hr 11/15/18 23:45 Sodium Chloride 0.9% IV .Q10H DONTRELL Lorazepam 0.5 mg 11/13/18 09:26 11/13/18 09:39 Ativan IVP 0.5 mg Q6H PRN Administration Agitation Pantoprazole Sodium 40 mg 11/12/18 17:30 11/14/18 09:13 Protonix Ec Tab PO 40 mg DAILY DONTRELL Administration Saccharomyces Boulardii 250 mg 11/12/18 18:00 11/14/18 17:28 Florastor PO 250 mg BID DONTRELL Administration - Patient Studies Lab Studies: Microbiology Studies 11/12/18 15:45 Blood Culture - Preliminary Blood-Venous NO GROWTH AFTER 48 HOURS 11/12/18 15:15 Blood Culture - Preliminary Blood-Venous NO GROWTH AFTER 48 HOURS Lab Studies 11/15/18 11/15/18 11/15/18 Range/Units 06:28 06:28 06:28 WBC 3.8 L D (4.8-10.8) K/uL RBC 4.51 (3.80-5.20) Mil/uL Hgb 8.6 L (11.0-16.0) g/dL Hct 29.8 L (34.0-47.0) % MCV 65.9 L (81.0-99.0) fL MCH 19.0 L (27.0-31.0) pg MCHC 28.8 L (33.0-37.0) g/dL RDW 19.5 H (11.5-14.5) % Plt Count 277 (130-400) K/uL MPV 8.1 (7.2-11.7) fL Neut % (Auto) 45.7 L (50.0-75.0) % Lymph % (Auto) 43.0 H (20.0-40.0) % Wake % (Auto) 8.5 (0.0-10.0) % Eos % (Auto) 2.5 (0.0-4.0) % Baso % (Auto) 0.3 (0.0-2.0) % Neut # (Auto) 1.7 L (1.8-7.0) K/uL Lymph # (Auto) 1.6 (1.0-4.3) K/uL Wake # (Auto) 0.3 (0.0-0.8) K/uL Eos # (Auto) 0.1 (0.0-0.7) K/uL Baso # (Auto) 0.0 (0.0-0.2) K/uL Hemoglobinopathy Red Blood Count (3.80-5.10) Mill/mcL Hemoglobinopathy Hct (35.0-45.0) % Hemoglobinopathy Hgb (11.7-15.5) g/dL Hemoglobinopathy MCV (80.0-100.0) fL Hemoglobinopathy MCH (27.0-33.0) pg Hemoglobinopathy RDW (11.0-15.0) % PT 21.2 H (9.7-12.2) SECONDS INR 1.9 APTT 63 H D (21-34) SECONDS Sodium 134 (132-148) mmol/L Potassium 4.3 (3.6-5.2) mmol/L Chloride 115 H (98-107) mmol/L Carbon Dioxide 14 L (22-30) mmol/L Anion Gap 10 (10-20) BUN 2 L (7-17) mg/dL Creatinine 0.4 L (0.7-1.2) mg/dL Est GFR ( Amer) > 60 Est GFR (Non-Af Amer) > 60 POC Glucose (mg/dL) (65-110) mg/dL Random Glucose 69 (65-105) mg/dL Lactic Acid (0.7-2.1) mmol/L Calcium 7.6 L (8.6-10.4) mg/dl Phosphorus 3.4 (2.5-4.5) mg/dL Magnesium 1.6 (1.6-2.3) mg/dL Total Bilirubin 0.3 (0.2-1.3) mg/dL AST 33 (14-36) U/L ALT 38 (9-52) U/L Alkaline Phosphatase 110 (38-126) U/L CK-MB (Mass) (0.0-3.38) ng/mL Total Protein 5.6 L (6.3-8.3) g/dL Albumin 2.0 L (3.5-5.0) g/dL Globulin 3.6 (2.2-3.9) gm/dL Albumin/Globulin Ratio 0.5 L (1.0-2.1) Stool Leukocytes, Qual (NEGATIVE) Anti-Cardiolipin IgG Ab (<=14) GPL C. difficile Ag & Toxin (NEGATIVE) 11/14/18 11/14/18 11/14/18 Range/Units 21:15 20:05 16:03 WBC (4.8-10.8) K/uL RBC (3.80-5.20) Mil/uL Hgb (11.0-16.0) g/dL Hct (34.0-47.0) % MCV (81.0-99.0) fL MCH (27.0-31.0) pg MCHC (33.0-37.0) g/dL RDW (11.5-14.5) % Plt Count (130-400) K/uL MPV (7.2-11.7) fL Neut % (Auto) (50.0-75.0) % Lymph % (Auto) (20.0-40.0) % Wake % (Auto) (0.0-10.0) % Eos % (Auto) (0.0-4.0) % Baso % (Auto) (0.0-2.0) % Neut # (Auto) (1.8-7.0) K/uL Lymph # (Auto) (1.0-4.3) K/uL Wake # (Auto) (0.0-0.8) K/uL Eos # (Auto) (0.0-0.7) K/uL Baso # (Auto) (0.0-0.2) K/uL Hemoglobinopathy Red Blood Count (3.80-5.10) Mill/mcL Hemoglobinopathy Hct (35.0-45.0) % Hemoglobinopathy Hgb (11.7-15.5) g/dL Hemoglobinopathy MCV (80.0-100.0) fL Hemoglobinopathy MCH (27.0-33.0) pg Hemoglobinopathy RDW (11.0-15.0) % PT 19.7 H (9.7-12.2) SECONDS INR 1.8 APTT (21-34) SECONDS Sodium (132-148) mmol/L Potassium (3.6-5.2) mmol/L Chloride (98-107) mmol/L Carbon Dioxide (22-30) mmol/L Anion Gap (10-20) BUN (7-17) mg/dL Creatinine (0.7-1.2) mg/dL Est GFR ( Amer) Est GFR (Non-Af Amer) POC Glucose (mg/dL) 344 H 97 (65-110) mg/dL Random Glucose (65-105) mg/dL Lactic Acid (0.7-2.1) mmol/L Calcium (8.6-10.4) mg/dl Phosphorus (2.5-4.5) mg/dL Magnesium (1.6-2.3) mg/dL Total Bilirubin (0.2-1.3) mg/dL AST (14-36) U/L ALT (9-52) U/L Alkaline Phosphatase (38-126) U/L CK-MB (Mass) (0.0-3.38) ng/mL Total Protein (6.3-8.3) g/dL Albumin (3.5-5.0) g/dL Globulin (2.2-3.9) gm/dL Albumin/Globulin Ratio (1.0-2.1) Stool Leukocytes, Qual (NEGATIVE) Anti-Cardiolipin IgG Ab (<=14) GPL C. difficile Ag & Toxin (NEGATIVE) 11/14/18 11/14/18 11/14/18 Range/Units 12:50 11:14 11:14 WBC (4.8-10.8) K/uL RBC (3.80-5.20) Mil/uL Hgb (11.0-16.0) g/dL Hct (34.0-47.0) % MCV (81.0-99.0) fL MCH (27.0-31.0) pg MCHC (33.0-37.0) g/dL RDW (11.5-14.5) % Plt Count (130-400) K/uL MPV (7.2-11.7) fL Neut % (Auto) (50.0-75.0) % Lymph % (Auto) (20.0-40.0) % Wake % (Auto) (0.0-10.0) % Eos % (Auto) (0.0-4.0) % Baso % (Auto) (0.0-2.0) % Neut # (Auto) (1.8-7.0) K/uL Lymph # (Auto) (1.0-4.3) K/uL Wake # (Auto) (0.0-0.8) K/uL Eos # (Auto) (0.0-0.7) K/uL Baso # (Auto) (0.0-0.2) K/uL Hemoglobinopathy Red Blood Count (3.80-5.10) Mill/mcL Hemoglobinopathy Hct (35.0-45.0) % Hemoglobinopathy Hgb (11.7-15.5) g/dL Hemoglobinopathy MCV (80.0-100.0) fL Hemoglobinopathy MCH (27.0-33.0) pg Hemoglobinopathy RDW (11.0-15.0) % PT (9.7-12.2) SECONDS INR APTT (21-34) SECONDS Sodium 135 (132-148) mmol/L Potassium 3.8 (3.6-5.2) mmol/L Chloride 111 H (98-107) mmol/L Carbon Dioxide 18 L (22-30) mmol/L Anion Gap 9 L (10-20) BUN 2 L (7-17) mg/dL Creatinine 0.4 L (0.7-1.2) mg/dL Est GFR ( Amer) > 60 Est GFR (Non-Af Amer) > 60 POC Glucose (mg/dL) 100 (65-110) mg/dL Random Glucose 86 D (65-105) mg/dL Lactic Acid 2.2 H (0.7-2.1) mmol/L Calcium 7.3 L (8.6-10.4) mg/dl Phosphorus 2.6 (2.5-4.5) mg/dL Magnesium 1.5 L (1.6-2.3) mg/dL Total Bilirubin 0.5 (0.2-1.3) mg/dL AST 31 (14-36) U/L ALT 38 (9-52) U/L Alkaline Phosphatase 97 (38-126) U/L CK-MB (Mass) < 0.22 (0.0-3.38) ng/mL Total Protein 5.3 L (6.3-8.3) g/dL Albumin 1.9 L (3.5-5.0) g/dL Globulin 3.4 (2.2-3.9) gm/dL Albumin/Globulin Ratio 0.6 L (1.0-2.1) Stool Leukocytes, Qual (NEGATIVE) Anti-Cardiolipin IgG Ab (<=14) GPL C. difficile Ag & Toxin (NEGATIVE) 11/14/18 11/14/18 11/12/18 Range/Units 07:59 06:54 19:42 WBC (4.8-10.8) K/uL RBC (3.80-5.20) Mil/uL Hgb (11.0-16.0) g/dL Hct (34.0-47.0) % MCV (81.0-99.0) fL MCH (27.0-31.0) pg MCHC (33.0-37.0) g/dL RDW (11.5-14.5) % Plt Count (130-400) K/uL MPV (7.2-11.7) fL Neut % (Auto) (50.0-75.0) % Lymph % (Auto) (20.0-40.0) % Wake % (Auto) (0.0-10.0) % Eos % (Auto) (0.0-4.0) % Baso % (Auto) (0.0-2.0) % Neut # (Auto) (1.8-7.0) K/uL Lymph # (Auto) (1.0-4.3) K/uL Wake # (Auto) (0.0-0.8) K/uL Eos # (Auto) (0.0-0.7) K/uL Baso # (Auto) (0.0-0.2) K/uL Hemoglobinopathy Red Blood Count 4.20 (3.80-5.10) Mill/mcL Hemoglobinopathy Hct 28.2 L (35.0-45.0) % Hemoglobinopathy Hgb 8.0 L (11.7-15.5) g/dL Hemoglobinopathy MCV 67.1 L (80.0-100.0) fL Hemoglobinopathy MCH 19.0 L (27.0-33.0) pg Hemoglobinopathy RDW 19.8 H (11.0-15.0) % PT (9.7-12.2) SECONDS INR APTT 53 H D (21-34) SECONDS Sodium (132-148) mmol/L Potassium (3.6-5.2) mmol/L Chloride (98-107) mmol/L Carbon Dioxide (22-30) mmol/L Anion Gap (10-20) BUN (7-17) mg/dL Creatinine (0.7-1.2) mg/dL Est GFR ( Amer) Est GFR (Non-Af Amer) POC Glucose (mg/dL) 91 (65-110) mg/dL Random Glucose (65-105) mg/dL Lactic Acid (0.7-2.1) mmol/L Calcium (8.6-10.4) mg/dl Phosphorus (2.5-4.5) mg/dL Magnesium (1.6-2.3) mg/dL Total Bilirubin (0.2-1.3) mg/dL AST (14-36) U/L ALT (9-52) U/L Alkaline Phosphatase (38-126) U/L CK-MB (Mass) (0.0-3.38) ng/mL Total Protein (6.3-8.3) g/dL Albumin (3.5-5.0) g/dL Globulin (2.2-3.9) gm/dL Albumin/Globulin Ratio (1.0-2.1) Stool Leukocytes, Qual (NEGATIVE) Anti-Cardiolipin IgG Ab (<=14) GPL C. difficile Ag & Toxin (NEGATIVE) 11/12/18 11/12/18 Range/Units 15:59 14:32 WBC (4.8-10.8) K/uL RBC (3.80-5.20) Mil/uL Hgb (11.0-16.0) g/dL Hct (34.0-47.0) % MCV (81.0-99.0) fL MCH (27.0-31.0) pg MCHC (33.0-37.0) g/dL RDW (11.5-14.5) % Plt Count (130-400) K/uL MPV (7.2-11.7) fL Neut % (Auto) (50.0-75.0) % Lymph % (Auto) (20.0-40.0) % Wake % (Auto) (0.0-10.0) % Eos % (Auto) (0.0-4.0) % Baso % (Auto) (0.0-2.0) % Neut # (Auto) (1.8-7.0) K/uL Lymph # (Auto) (1.0-4.3) K/uL Wake # (Auto) (0.0-0.8) K/uL Eos # (Auto) (0.0-0.7) K/uL Baso # (Auto) (0.0-0.2) K/uL Hemoglobinopathy Red Blood Count (3.80-5.10) Mill/mcL Hemoglobinopathy Hct (35.0-45.0) % Hemoglobinopathy Hgb (11.7-15.5) g/dL Hemoglobinopathy MCV (80.0-100.0) fL Hemoglobinopathy MCH (27.0-33.0) pg Hemoglobinopathy RDW (11.0-15.0) % PT (9.7-12.2) SECONDS INR APTT (21-34) SECONDS Sodium (132-148) mmol/L Potassium (3.6-5.2) mmol/L Chloride (98-107) mmol/L Carbon Dioxide (22-30) mmol/L Anion Gap (10-20) BUN (7-17) mg/dL Creatinine (0.7-1.2) mg/dL Est GFR ( Amer) Est GFR (Non-Af Amer) POC Glucose (mg/dL) (65-110) mg/dL Random Glucose (65-105) mg/dL Lactic Acid (0.7-2.1) mmol/L Calcium (8.6-10.4) mg/dl Phosphorus (2.5-4.5) mg/dL Magnesium (1.6-2.3) mg/dL Total Bilirubin (0.2-1.3) mg/dL AST (14-36) U/L ALT (9-52) U/L Alkaline Phosphatase (38-126) U/L CK-MB (Mass) (0.0-3.38) ng/mL Total Protein (6.3-8.3) g/dL Albumin (3.5-5.0) g/dL Globulin (2.2-3.9) gm/dL Albumin/Globulin Ratio (1.0-2.1) Stool Leukocytes, Qual Negative (NEGATIVE) Anti-Cardiolipin IgG Ab <14 (<=14) GPL C. difficile Ag & Toxin Negative (NEGATIVE) Laboratory Results - last 24 hr 11/12/18 11/12/18 11/12/18 14:32 15:59 19:42 WBC RBC Hgb Hct MCV MCH MCHC RDW Plt Count MPV Neut % (Auto) Lymph % (Auto) Wake % (Auto) Eos % (Auto) Baso % (Auto) Neut # (Auto) Lymph # (Auto) Wake # (Auto) Eos # (Auto) Baso # (Auto) Hemoglobinopathy Red Blood Count 4.20 Hemoglobinopathy Hct 28.2 L Hemoglobinopathy Hgb 8.0 L Hemoglobinopathy MCV 67.1 L Hemoglobinopathy MCH 19.0 L Hemoglobinopathy RDW 19.8 H PT INR APTT Sodium Potassium Chloride Carbon Dioxide Anion Gap BUN Creatinine Est GFR ( Amer) Est GFR (Non-Af Amer) POC Glucose (mg/dL) Random Glucose Lactic Acid Calcium Phosphorus Magnesium Total Bilirubin AST ALT Alkaline Phosphatase CK-MB (Mass) Total Protein Albumin Globulin Albumin/Globulin Ratio Stool Leukocytes, Qual Negative Anti-Cardiolipin IgG Ab <14 C. difficile Ag & Toxin Negative 11/14/18 11/14/18 11/14/18 06:54 07:59 11:14 WBC RBC Hgb Hct MCV MCH MCHC RDW Plt Count MPV Neut % (Auto) Lymph % (Auto) Wake % (Auto) Eos % (Auto) Baso % (Auto) Neut # (Auto) Lymph # (Auto) Wake # (Auto) Eos # (Auto) Baso # (Auto) Hemoglobinopathy Red Blood Count Hemoglobinopathy Hct Hemoglobinopathy Hgb Hemoglobinopathy MCV Hemoglobinopathy MCH Hemoglobinopathy RDW PT INR APTT 53 H D Sodium 135 Potassium 3.8 Chloride 111 H Carbon Dioxide 18 L Anion Gap 9 L BUN 2 L Creatinine 0.4 L Est GFR ( Amer) > 60 Est GFR (Non-Af Amer) > 60 POC Glucose (mg/dL) 91 Random Glucose 86 D Lactic Acid Calcium 7.3 L Phosphorus 2.6 Magnesium 1.5 L Total Bilirubin 0.5 AST 31 ALT 38 Alkaline Phosphatase 97 CK-MB (Mass) < 0.22 Total Protein 5.3 L Albumin 1.9 L Globulin 3.4 Albumin/Globulin Ratio 0.6 L Stool Leukocytes, Qual Anti-Cardiolipin IgG Ab C. difficile Ag & Toxin 11/14/18 11/14/18 11/14/18 11:14 12:50 16:03 WBC RBC Hgb Hct MCV MCH MCHC RDW Plt Count MPV Neut % (Auto) Lymph % (Auto) Wake % (Auto) Eos % (Auto) Baso % (Auto) Neut # (Auto) Lymph # (Auto) Wake # (Auto) Eos # (Auto) Baso # (Auto) Hemoglobinopathy Red Blood Count Hemoglobinopathy Hct Hemoglobinopathy Hgb Hemoglobinopathy MCV Hemoglobinopathy MCH Hemoglobinopathy RDW PT INR APTT Sodium Potassium Chloride Carbon Dioxide Anion Gap BUN Creatinine Est GFR ( Amer) Est GFR (Non-Af Amer) POC Glucose (mg/dL) 100 97 Random Glucose Lactic Acid 2.2 H Calcium Phosphorus Magnesium Total Bilirubin AST ALT Alkaline Phosphatase CK-MB (Mass) Total Protein Albumin Globulin Albumin/Globulin Ratio Stool Leukocytes, Qual Anti-Cardiolipin IgG Ab C. difficile Ag & Toxin 11/14/18 11/14/18 11/15/18 20:05 21:15 06:28 WBC 3.8 L D RBC 4.51 Hgb 8.6 L Hct 29.8 L MCV 65.9 L MCH 19.0 L MCHC 28.8 L RDW 19.5 H Plt Count 277 MPV 8.1 Neut % (Auto) 45.7 L Lymph % (Auto) 43.0 H Wake % (Auto) 8.5 Eos % (Auto) 2.5 Baso % (Auto) 0.3 Neut # (Auto) 1.7 L Lymph # (Auto) 1.6 Wake # (Auto) 0.3 Eos # (Auto) 0.1 Baso # (Auto) 0.0 Hemoglobinopathy Red Blood Count Hemoglobinopathy Hct Hemoglobinopathy Hgb Hemoglobinopathy MCV Hemoglobinopathy MCH Hemoglobinopathy RDW PT 19.7 H INR 1.8 APTT Sodium Potassium Chloride Carbon Dioxide Anion Gap BUN Creatinine Est GFR ( Amer) Est GFR (Non-Af Amer) POC Glucose (mg/dL) 344 H Random Glucose Lactic Acid Calcium Phosphorus Magnesium Total Bilirubin AST ALT Alkaline Phosphatase CK-MB (Mass) Total Protein Albumin Globulin Albumin/Globulin Ratio Stool Leukocytes, Qual Anti-Cardiolipin IgG Ab C. difficile Ag & Toxin 11/15/18 11/15/18 06:28 06:28 WBC RBC Hgb Hct MCV MCH MCHC RDW Plt Count MPV Neut % (Auto) Lymph % (Auto) Wake % (Auto) Eos % (Auto) Baso % (Auto) Neut # (Auto) Lymph # (Auto) Wake # (Auto) Eos # (Auto) Baso # (Auto) Hemoglobinopathy Red Blood Count Hemoglobinopathy Hct Hemoglobinopathy Hgb Hemoglobinopathy MCV Hemoglobinopathy MCH Hemoglobinopathy RDW PT 21.2 H INR 1.9 APTT 63 H D Sodium 134 Potassium 4.3 Chloride 115 H Carbon Dioxide 14 L Anion Gap 10 BUN 2 L Creatinine 0.4 L Est GFR ( Amer) > 60 Est GFR (Non-Af Amer) > 60 POC Glucose (mg/dL) Random Glucose 69 Lactic Acid Calcium 7.6 L Phosphorus 3.4 Magnesium 1.6 Total Bilirubin 0.3 AST 33 ALT 38 Alkaline Phosphatase 110 CK-MB (Mass) Total Protein 5.6 L Albumin 2.0 L Globulin 3.6 Albumin/Globulin Ratio 0.5 L Stool Leukocytes, Qual Anti-Cardiolipin IgG Ab C. difficile Ag & Toxin Radiology Impressions: Radiology Impressions Head CT 11/14/18 07:00 IMPRESSION: No significant interval changes noted since the prior study. Focal encephalomalacia at the right superior frontal parietal lobe likely represent subacute infarct. Fingerstick Blood Sugar Results: 344 Review of Systems - Constitutional Constitutional: Weakness. absent: Fever, Chills, Sweats - EENT Eyes: UNREMARKABLE. absent: Blurred Vision, Discharge Ears: UNREMARKABLE Nose/Mouth/Throat: UNREMARKABLE - Cardiovascular Cardiovascular: UNREMARKABLE. absent: Chest Pain, Chest Pain at Rest - Respiratory Respiratory: UNREMARKABLE. absent: Cough, Dyspnea - Gastrointestinal Gastrointestinal: Diarrhea. absent: Abdominal Pain, Bloating, Dysphagia - Genitourinary Genitourinary: UNREMARKABLE - Neurological Neurological: absent: Abnormal Gait, Burning Sensations, Syncope - Hematologic/Lymphatic Hematologic: UNREMARKABLE Critical Care Progress Note - Extremities/Vascular Does the Patient have a Central Venous Catheter?: No Does the Patient need a Central Venous Catheter?: No Does the Patient have a Lopez Catheter?: No Does the Patient need a Lopez Catheter?: No - Prophylaxis GI Prophylaxis GI: PPI - Prophylaxis DVT Prophylaxis DVT: Heparin SQ - Nutrition Nutrition: Nutrition Category Date Time Status Regular Diet [DIET] Diets 11/12/18 Breakfast Active Assessment/Plan - Assessment and Plan (Free Text) Assessment: 23F w/ recent travel to [place] (with 2 weeks of diarrhea) presents w/ code stroke, found to have R parietal infaract likely 2/2 right cortical venous thrombosis, with now PFO noted on ECHO (11/12), improving strength on L side, bridging to coumadin on 11/14, currently on flaggyl and ceftriaxone for diarrhea. 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 Sandoval Cardiac - Tachycardic (130s) possible 10/30 to fever - continue IV NS @ 100ml/hr - tylenol for fever - troponin negative - continue to monitor vitals - Echo 11/12: Left ventricle normal in size, EF 60-65%, bubble study is suggestive of possible PFO, transmitral doppler flow pattern is Grade I abnormal relaxation pattern, no pericardial effusion. - F/u Venous lower extremity duplexes - F/u Cardiac consult, Dr. Jamey Martino - O2 100% on RA - CXR 11/11: no focal consolidation - no acute issues GI - CT abdo (11/14): probable colonic ileus, no evidence of bowel obsturction, m ural thickening - pt at time is passing bowel, no nausea, no vomiting - c/w Regular Diet; will monitor for N/V/ passing of bowel - fecal occult blood (+) - H/H stable, continue to monitor - hepatitis panel 11/12: (-) - stool studies as below for cause of diarrhea - GI ppx: Protonix Renal - BUN/Cr 2/0.4 - replete electrolytes as necessary - continue NS at 100ml/hr - monitor CMP Heme - Microcytic Anemia - H/H 8.6/29.8 - MCV 64.5 - Iron 24, TIBC 204, % iron saturation 204, Ferritin 12 - F/u hemoglobin A/A2/S/C - replete with iron - Anticardiolipin negative, F/u remaining coag panel - F/u Dr. Garcia recs ID - Afebrile > 24H - WBC 3.4 - B/C, U/C negative X 48 H - RPR, HIV (-) - f/u fecal ova and parasites - f/u c.difficle - f/u Lyme panel - ID consult-- Dr. Barth - D/C ciprofloxacin (11/12 -11/14) - flagyl 500 mg Q8 (11/12) - Ceftriaxone 2g Q12 (11/15) PPx - Tylenol PRN for fever - DVT ppx-- on Heparin drip - Dopplers: no DVT - GI ppx-- protonix - Reel Winder recs, BMI of 14 - continue Regular diet - F/u pt/ot eval
[2018-11-15] MEDS: Sodium Chloride 0.9% 1,000 ML IV SCH ×2 (07:52→18:00)
[2018-11-15] MEDS: Saccharomyces Boulardi 250 mg Cap PO SCH ×2 (09:23→18:34)
[2018-11-15] MEDS: Pantoprazole 40 mg EC Tab PO SCH (09:23)
[2018-11-15] MEDS: Ferrous Sulfate 300 mg/5 mL Liq UD PO SCH (09:23)
--- NOTE | 2018-11-15 09:46 | CT ---
Date of service: 11/14/2018 PROCEDURE: CT Abdomen and Pelvis with contrast HISTORY: r/o intraabdominal pathology COMPARISON: None. TECHNIQUE: Contrast dose: 100 mL Visipaque 320 Radiation dose: Total exam DLP = 264.6 mGy-cm. This CT exam was performed using one or more of the following dose reduction techniques: Automated exposure control, adjustment of the mA and/or kV according to patient size, and/or use of iterative reconstruction technique. FINDINGS: LOWER THORAX: Unremarkable. LIVER: Unremarkable. No gross lesion or ductal dilatation. GALLBLADDER AND BILE DUCTS: Unremarkable. PANCREAS: Unremarkable. No gross lesion or ductal dilatation. SPLEEN: Unremarkable. ADRENALS: Unremarkable. No mass. KIDNEYS AND URETERS: Unremarkable. No hydronephrosis. No solid mass. VASCULATURE: Unremarkable. No aortic aneurysm. No aortic atherosclerotic calcification or mural plaque present. BOWEL: Dilatation of the entire large bowel with fluid. No evidence of small-bowel obstruction. No mural thickening. No other abnormal bowel loops. Probable colonic ileus. APPENDIX: Normal appendix. PERITONEUM: Unremarkable. No free fluid. No free air. LYMPH NODES: Unremarkable. No enlarged lymph nodes. BLADDER: Decompressed REPRODUCTIVE: Normal uterus BONES: No acute fracture. OTHER FINDINGS: None. IMPRESSION: Probable colonic ileus. No evidence of bowel obstruction. Dilated fluid-filled colon without mural thickening. No other significant abnormality. The preliminary findings for this examination were reported by [facility] at 7:26 p.m. on 11/14/2018. There is concurrence of this report with the preliminary findings.
[2018-11-15] MEDS ORDERED: cefTRIAXone 2 GM in Sodium Chloride 0.9% 100 ML IVPB SCH (10:00)
[2018-11-15] MEDS ORDERED: Ferric Sodium Gluconat Complex 62.5 mg/5 ml Vial IVPB SCH (10:00)
--- NOTE | 2018-11-15 10:30 | VASCLAB ---
Date of service: 11/13/2018 PROCEDURE: Lower Extremity Venous Duplex Exam. HISTORY: Patent Foramen Ovale, stroke PRIORS: None. TECHNIQUE: Bilateral common femoral, femoral, popliteal and posterior tibial, peroneal and great saphenous veins were evaluated. Flow was assessed with color Doppler, compressibility, assessment of phasic flow and augmentation response. Report prepared by MEJIA Farrell FINDINGS: RIGHT: 1. Common Femoral Vein: 1.1. Compressibility - Fully compressible: Thrombus - None : Flow - Phasic: Augmentation -Normal: Reflux - None. 2. Femoral Vein: 2.1. Compressibility - Fully compressible: Thrombus - None : Flow - Phasic: Augmentation -Normal: Reflux - None. 3. Popliteal Vein: 3.1. Compressibility - Fully compressible: Thrombus - None : Flow - Phasic: Augmentation -Normal: Reflux - None. 4. Posterior Tibial Vein: 4.1. Compressibility - Fully compressible: Thrombus - None: Flow - Phasic: Augmentation -Normal: Reflux - None. 5. Peroneal Vein: 5.1. Compressibility - Fully compressible: Thrombus - None: Flow - Phasic: Augmentation -Normal: Reflux - None. 6. Great Saphenous Vein: 6.1. Compressibility - Fully compressible: Thrombus - None: Flow - Phasic: Augmentation - Normal: Reflux - None. LEFT: 1. Common Femoral Vein: 1.1. Compressibility - Fully compressible: Thrombus - None: Flow - Phasic: Augmentation -Normal: Reflux - None. 2. Femoral Vein: 2.1. Compressibility - Fully compressible: Thrombus - None: Flow - Phasic: Augmentation -Normal: Reflux - None. 3. Popliteal Vein: 3.1. Compressibility - Fully compressible: Thrombus - None : Flow - Phasic: Augmentation -Normal: Reflux - None. 4. Posterior Tibial Vein: 4.1. Compressibility - Fully compressible: Thrombus - None: Flow - Phasic: Augmentation -Normal: Reflux - None. 5. Peroneal Vein: 5.1. Compressibility - Fully compressible: Thrombus - None: Flow - Phasic: Augmentation -Normal: Reflux - None. 6. Great Saphenous Vein: 6.1. Compressibility - Fully compressible: Thrombus - None: Flow - Phasic: Augmentation - Normal: Reflux - None. OTHER FINDINGS: Right: None significant. Left: None significant. IMPRESSION: Right: No evidence of deep or superficial vein thrombosis of the right lower extremity. Normal valve function noted of the right side. Left: No evidence of deep or superficial vein thrombosis of the left lower extremity. Normal valve function noted of the left side.
--- NOTE | 2018-11-15 10:52 | CP.PCM.PN ---
<Maryann Medina - Last Filed: 11/15/18 15:25> Subjective - Date & Time of Evaluation Date of Evaluation: 11/15/18 Time of Evaluation: 09:00 - Subjective Subjective: PGY2- Progress Note for Dr. Kulkarni Patient seen and examined at bedside and in no acute distress. Patient says left side of body feels somewhat less weak, but the weakness has not resolved. Patient denies any headache, dizziness, blurry vision, chest pain, shortness of breath, abdominal pain, nausea, vomiting, constipation, or diarrhea. Objective - Vital Signs/Intake and Output Vital Signs (last 24 hours): Temp Pulse Resp BP Pulse Ox 97.8 F 103 H 24 101/64 100 11/15/18 08:00 11/15/18 10:00 11/15/18 10:00 11/15/18 09:51 11/15/18 10:00 Intake and Output: 11/15/18 11/15/18 06:59 18:59 Intake Total 1374.1 822.8 Output Total 1100 450 Balance 274.1 372.8 - Medications Medications: Current Medications Acetaminophen (Tylenol 325mg Tab) 650 mg PO Q6 PRN PRN Reason: Fever >100.4 F Last Admin: 11/13/18 00:01 Dose: 650 mg Ferric Sodium Gluconate Complex (Ferrlecit) 125 mg IVPB DAILY [facility] Stop: 11/23/18 10:01 Last Admin: 11/15/18 09:21 Dose: 125 mg Ferrous Sulfate (Feosol Liq) 300 mg PO DAILY [facility] Last Admin: 11/15/18 09:23 Dose: 300 mg Heparin Sodium/Sodium Chloride (Heparin 00562 Units/250ml 1/2 Normal Saline) 25,000 units in 250 mls @ 6.891 mls/hr IV .Q24H PRN; Protocol PRN Reason: PROTOCOL Last Admin: 11/13/18 17:56 Dose: 14.88 units/kg/hr, 5.7 mls/hr Metronidazole (Flagyl) 500 mg in 100 mls @ 100 mls/hr IVPB Q8H [facility]; Protocol Last Admin: 11/15/18 02:07 Dose: 100 mls/hr Levetiracetam 500 mg/ Dextrose 105 mls @ 420 mls/hr IVPB Q12H [facility] Last Admin: 11/15/18 07:51 Dose: 420 mls/hr Ceftriaxone Sodium 2 gm/ (Sodium Chloride) 100 mls @ 100 mls/hr IVPB DAILY [facility]; Protocol Last Admin: 11/15/18 10:39 Dose: 100 mls/hr Sodium Chloride (Sodium Chloride 0.9%) 1,000 mls @ 100 mls/hr IV .Q10H [facility] Last Admin: 11/15/18 07:52 Dose: 100 mls/hr Lorazepam (Ativan) 0.5 mg IVP Q6H PRN PRN Reason: Agitation Last Admin: 11/13/18 09:39 Dose: 0.5 mg Pantoprazole Sodium (Protonix Ec Tab) 40 mg PO DAILY [facility] Last Admin: 11/15/18 09:23 Dose: 40 mg Saccharomyces Boulardii (Florastor) 250 mg PO BID [facility] Last Admin: 11/15/18 09:23 Dose: 250 mg - Labs Labs: 11/15/18 06:28 11/15/18 06:28 PT 21.2 SECONDS (9.7-12.2) H 11/15/18 06:28 INR 1.9 11/15/18 06:28 APTT 63 SECONDS (21-34) H D 11/15/18 06:28 - Additional Findings Additional findings: - Constitutional Appears: Non-toxic, No Acute Distress, Cachectic - Head Exam Head Exam: ATRAUMATIC, NORMAL INSPECTION, NORMOCEPHALIC - Eye Exam Eye Exam: EOMI, Normal appearance - ENT Exam ENT Exam: Mucous Membranes Moist - Respiratory Exam Respiratory Exam: Clear to Auscultation Bilateral, NORMAL BREATHING PATTERN. absent: Rales, Rhonchi, Wheezes, Respiratory Distress, Stridor - Cardiovascular Exam Cardiovascular Exam: REGULAR RHYTHM, RRR, +S1, +S2 - GI/Abdominal Exam GI & Abdominal Exam: Hyperactive Bowel Sounds, Soft. absent: Tenderness - Extremities Exam Extremities exam: Positive for: normal inspection - Back Exam Back exam: NORMAL INSPECTION - Neurological Exam Neurological exam: Alert, CN II-XII Intact, Oriented x3 - Expanded Neurological Exam Expanded Patient oriented to: person, place, time Cerebellar Function: Finger to Nose: Abnormal Left (improving) Upper motor neuron: Babinski Sign: Normal, Pronator Drift: Abnormal Left (improving) Sensory Extinction: left slightly less than right Neuro motor strength exam: Left Upper Extremity: 4, Right Upper Extremity: 5, Left Lower Extremity: 5, Right Lower Extremity: 5 - Psychiatric Exam Psychiatric exam: Normal Affect, Normal Mood - Skin Skin Exam: Intact, Normal Color, Warm Assessment and Plan - Assessment and Plan (Free Text) Assessment: 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 Focal encephalomalacia at the right superior frontal parietal lobe likely represent subacute infarct. Brain MRI (11/12/18) : 3.6 x 2.4cm venous infarction in the right posterior parietal lobe with juxtacortical hemorrhage. no significant mass effect or midline shift. cortical venous thrombosis leading up to the hemorrhagic venous infarction in the right posterior parietal lobe. MRI C spine (11/12/18): normal pre and post contrast MRI of the cervical spine. Venous Duplex Scan low ext b/l (11/12/18): no evidence of deep or superficial vein thrombosis. normal valve function noted. CTA head and neck (11/11/18): 1. no evidence of endoluminal thrombus, occlusion, or definite significant stenosis in the intracranial arteries. 2. No evidence of hemodynamically significant stenosis in the internal carotid arteries. 3.Patent bilateral vertebral arteries. CT Head (11/11/18): faint hypodensity in the right parietal lobe consistent with infarction. Echo with bubble study (11/12/18): EF 60-65%, grade I abnormal relaxation pattern, bubble study is suggestive of possible pfo. aortic root is normal size. IVC is normal in size and collapses > 50% with inspiration. no pericardial effusion. f/u Hypercoagulability work-up vit B12: 301 TSH: 1.03 free T4: 1.42 HIV, RPR, hepatitis panel negative meds: * Heparin drip, please keep PTT 80-90 bridging to Coumadin with goal INR 2-3 Seizure like Activity EEG: This is a normal awake and sleep 24 hour video EEG. There is continuous slowing in the right temporal frontal region that could suggest underlying lesion or postictal state. Keppra 500mg bid Diarrhea f/u stool studies: cryptosporidium, giardia, fecal leukocytes, stool culture c dif neg, stool leukocytes neg, stool occult blood positive Florastor 250mg po BID Flagyl + Ceftriaxone GI consult, help appreciated please notify neuro of any acute changes in pt's condition or mental status. Discussed with Dr. Shad Medina, PGY2 <Jeffery Kulkarni - Last Filed: 11/15/18 23:32> Objective - Vital Signs/Intake and Output Vital Signs (last 24 hours): Temp Pulse Resp BP Pulse Ox 98.3 F 98 H 24 100/59 L 100 11/15/18 16:00 11/15/18 19:00 11/15/18 19:00 11/15/18 16:10 11/15/18 19:00 Intake and Output: 11/15/18 11/16/18 18:59 06:59 Intake Total 2168.4 105.7 Output Total 1350 Balance 818.4 105.7 - Medications Medications: Current Medications Acetaminophen (Tylenol 325mg Tab) 650 mg PO Q6 PRN PRN Reason: Fever >100.4 F Last Admin: 11/13/18 00:01 Dose: 650 mg Ferric Sodium Gluconate Complex (Ferrlecit) 125 mg IVPB DAILY [facility] Stop: 11/23/18 10:01 Last Admin: 11/15/18 09:21 Dose: 125 mg Ferrous Sulfate (Feosol Liq) 300 mg PO DAILY [facility] Last Admin: 11/15/18 09:23 Dose: 300 mg Heparin Sodium/Sodium Chloride (Heparin 04958 Units/250ml 1/2 Normal Saline) 25,000 units in 250 mls @ 6.891 mls/hr IV .Q24H PRN; Protocol PRN Reason: PROTOCOL Last Admin: 11/15/18 17:16 Dose: 14.88 units/kg/hr, 5.7 mls/hr Metronidazole (Flagyl) 500 mg in 100 mls @ 100 mls/hr IVPB Q8H [facility]; Protocol Last Admin: 11/15/18 18:32 Dose: 100 mls/hr Ceftriaxone Sodium 2 gm/ (Sodium Chloride) 100 mls @ 100 mls/hr IVPB DAILY [facility]; Protocol Last Admin: 11/15/18 10:39 Dose: 100 mls/hr Sodium Chloride (Sodium Chloride 0.9%) 1,000 mls @ 100 mls/hr IV .Q10H [facility] Last Admin: 11/15/18 18:00 Dose: Not Given Levetiracetam (Keppra) 500 mg PO BID [facility] Last Admin: 11/15/18 18:32 Dose: 500 mg Lorazepam (Ativan) 0.5 mg IVP Q6H PRN PRN Reason: Agitation Last Admin: 11/13/18 09:39 Dose: 0.5 mg Pantoprazole Sodium (Protonix Ec Tab) 40 mg PO DAILY [facility] Last Admin: 11/15/18 09:23 Dose: 40 mg Saccharomyces Boulardii (Florastor) 250 mg PO BID [facility] Last Admin: 11/15/18 18:34 Dose: 250 mg - Labs Labs: 11/15/18 06:28 11/15/18 06:28 PT 21.2 SECONDS (9.7-12.2) H 11/15/18 06:28 INR 1.9 11/15/18 06:28 APTT 63 SECONDS (21-34) H D 11/15/18 06:28 Assessment and Plan - Assessment and Plan (Free Text) Assessment: Atteding attestation:Attending/Attestation - Attestation I have personally seen and examined this patient.: Yes I have fully participated in the care of the patient.: Yes I have reviewed all pertinent clinical information: Yes Notes (Text): I examined the patient independently and formulated the assessment and plan. I agree with the residents note. I will add the following: Patient with right cortical vein thrombus resulting in a venous infarct, now with improving strength. We will continue anticoagulation and seizure medication aNd physical therapy. Thank you Dr. Kulkarni Neurology
--- NOTE | 2018-11-15 12:34 | PCM.VEEG ---
Video EEG - Procedure Start Date: 11/13/18 End Date: 11/14/18 Technical Summary: This video EEG was acquired using the 10/20 international electrode system. All channels were referenced to A1 A2, P1 P2 respectively. There was continuous spike and seizure detection noted, and was reviewed in completion. - Interpretation Description of the study: With eyes, closed the posterior dominant rhythm is a poorly developed 9 hz a ctivity that is reactive, symmetric and attenuates to eye opening. Normal amount of drowiness is captured with normal sleep. Sleep is characterized by bilaterally symmetric sleep spindles, POSTS, and K complexes. There were no interictal discharges noted, no clinical or subclinical seizures. Interictal non-epileptiform abnormalities: none - Impression Impression: This is a normal awake and sleep 24 hour video EEG. There is continuous slowing in the right temporal frontal region that could suggest underlying lesion or postictal state. Clinical correlation is required. Thank you Dr. Jeffery Kulkarni MD DPN Epilepsy and Neurology
[2018-11-15] MEDS: Heparin25000 units/250ml 1/2NS 25,000 UNITS/250 ML BAG IV PRN (17:16)
--- NOTE | 2018-11-15 20:59 | CP.PCM.PN ---
Subjective - Date & Time of Evaluation Date of Evaluation: 11/15/18 Time of Evaluation: 15:20 - Subjective Subjective: dictated Objective - Vital Signs/Intake and Output Vital Signs (last 24 hours): Temp Pulse Resp BP Pulse Ox 98.3 F 98 H 24 100/59 L 100 11/15/18 16:00 11/15/18 19:00 11/15/18 19:00 11/15/18 16:10 11/15/18 19:00 Intake and Output: 11/15/18 11/16/18 18:59 06:59 Intake Total 2168.4 105.7 Output Total 1350 Balance 818.4 105.7 - Medications Medications: Current Medications Acetaminophen (Tylenol 325mg Tab) 650 mg PO Q6 PRN PRN Reason: Fever >100.4 F Last Admin: 11/13/18 00:01 Dose: 650 mg Ferric Sodium Gluconate Complex (Ferrlecit) 125 mg IVPB DAILY [facility] Stop: 11/23/18 10:01 Last Admin: 11/15/18 09:21 Dose: 125 mg Ferrous Sulfate (Feosol Liq) 300 mg PO DAILY [facility] Last Admin: 11/15/18 09:23 Dose: 300 mg Heparin Sodium/Sodium Chloride (Heparin 87186 Units/250ml 1/2 Normal Saline) 25,000 units in 250 mls @ 6.891 mls/hr IV .Q24H PRN; Protocol PRN Reason: PROTOCOL Last Admin: 11/15/18 17:16 Dose: 14.88 units/kg/hr, 5.7 mls/hr Metronidazole (Flagyl) 500 mg in 100 mls @ 100 mls/hr IVPB Q8H [facility]; Protocol Last Admin: 11/15/18 18:32 Dose: 100 mls/hr Ceftriaxone Sodium 2 gm/ (Sodium Chloride) 100 mls @ 100 mls/hr IVPB DAILY [facility]; Protocol Last Admin: 11/15/18 10:39 Dose: 100 mls/hr Sodium Chloride (Sodium Chloride 0.9%) 1,000 mls @ 100 mls/hr IV .Q10H [facility] Last Admin: 11/15/18 18:00 Dose: Not Given Levetiracetam (Keppra) 500 mg PO BID [facility] Last Admin: 11/15/18 18:32 Dose: 500 mg Lorazepam (Ativan) 0.5 mg IVP Q6H PRN PRN Reason: Agitation Last Admin: 11/13/18 09:39 Dose: 0.5 mg Pantoprazole Sodium (Protonix Ec Tab) 40 mg PO DAILY [facility] Last Admin: 11/15/18 09:23 Dose: 40 mg Saccharomyces Boulardii (Florastor) 250 mg PO BID [facility] Last Admin: 11/15/18 18:34 Dose: 250 mg - Labs Labs: 11/15/18 06:28 11/15/18 06:28 PT 21.2 SECONDS (9.7-12.2) H 11/15/18 06:28 INR 1.9 11/15/18 06:28 APTT 63 SECONDS (21-34) H D 11/15/18 06:28
--- NOTE | 2018-11-15 23:03 | CP.PCM.PN ---
Subjective - Date & Time of Evaluation Date of Evaluation: 11/15/18 Time of Evaluation: 16:10 - Subjective Subjective: Patient seen and evaluated No cardiac events noted Objective - Vital Signs/Intake and Output Vital Signs (last 24 hours): Temp Pulse Resp BP Pulse Ox 98.3 F 98 H 24 100/59 L 100 11/15/18 16:00 11/15/18 19:00 11/15/18 19:00 11/15/18 16:10 11/15/18 19:00 Intake and Output: 11/15/18 11/16/18 18:59 06:59 Intake Total 2168.4 105.7 Output Total 1350 Balance 818.4 105.7 - Medications Medications: Current Medications Acetaminophen (Tylenol 325mg Tab) 650 mg PO Q6 PRN PRN Reason: Fever >100.4 F Last Admin: 11/13/18 00:01 Dose: 650 mg Ferric Sodium Gluconate Complex (Ferrlecit) 125 mg IVPB DAILY [facility] Stop: 11/23/18 10:01 Last Admin: 11/15/18 09:21 Dose: 125 mg Ferrous Sulfate (Feosol Liq) 300 mg PO DAILY [facility] Last Admin: 11/15/18 09:23 Dose: 300 mg Heparin Sodium/Sodium Chloride (Heparin 21398 Units/250ml 1/2 Normal Saline) 25,000 units in 250 mls @ 6.891 mls/hr IV .Q24H PRN; Protocol PRN Reason: PROTOCOL Last Admin: 11/15/18 17:16 Dose: 14.88 units/kg/hr, 5.7 mls/hr Metronidazole (Flagyl) 500 mg in 100 mls @ 100 mls/hr IVPB Q8H [facility]; Protocol Last Admin: 11/15/18 18:32 Dose: 100 mls/hr Ceftriaxone Sodium 2 gm/ (Sodium Chloride) 100 mls @ 100 mls/hr IVPB DAILY [facility]; Protocol Last Admin: 11/15/18 10:39 Dose: 100 mls/hr Sodium Chloride (Sodium Chloride 0.9%) 1,000 mls @ 100 mls/hr IV .Q10H [facility] Last Admin: 11/15/18 18:00 Dose: Not Given Levetiracetam (Keppra) 500 mg PO BID [facility] Last Admin: 11/15/18 18:32 Dose: 500 mg Lorazepam (Ativan) 0.5 mg IVP Q6H PRN PRN Reason: Agitation Last Admin: 11/13/18 09:39 Dose: 0.5 mg Pantoprazole Sodium (Protonix Ec Tab) 40 mg PO DAILY [facility] Last Admin: 11/15/18 09:23 Dose: 40 mg Saccharomyces Boulardii (Florastor) 250 mg PO BID [facility] Last Admin: 11/15/18 18:34 Dose: 250 mg - Labs Labs: 11/15/18 06:28 11/15/18 06:28 PT 21.2 SECONDS (9.7-12.2) H 11/15/18 06:28 INR 1.9 11/15/18 06:28 APTT 63 SECONDS (21-34) H D 11/15/18 06:28
[2018-11-15] MEDS ORDERED: Sodium Chloride 0.9% 1,000 ML IV SCH (23:45)
[2018-11-16] MEDS: metroNIDAZOLE IV 500 mg/100 ml 500 MG/100 ML BAG IVPB SCH ×2 (01:55→11:44)
--- NOTE | 2018-11-16 06:18 | PN ---
DATE: 11/15/2018 INFECTIOUS DISEASE FOLLOWUP SUBJECTIVE: I went to see the patient today. She had no more seizures. T-max is 98.3. She still complains of left upper arm weakness. She says it is better but it is still there. Denied any left leg problems. She denies any diarrhea now. OBJECTIVE: VITAL SIGNS: Her T-max was 98.3, heart rate of 96. Blood pressure was 96/56, respirations 18. GENERAL: She is awake, alert. HEENT: Head is atraumatic and normocephalic. Pupils are reacting to light. NECK: Supple. LUNGS: Clear. HEART: S1, S2 regular. ABDOMEN: Soft, nontender. EXTREMITIES: Have no edema, clubbing, or cyanosis. White count is 3.8, hemoglobin 8.6, hematocrit 29.8, platelet count is 277. Neutrophils remain 45.7 and 43. She is being followed by neurologist. BUN is 2, creatinine 0.4, and HIV serology came back negative. Giardia was not detected. Cryptosporidium was pending. C. diff was negative. RPR is nonreactive. Lyme was negative. Hepatitis A, B, and C came out negative. Stool occult blood was positive, leukocytes are negative. UA is negative. Sodium is 134, potassium 4.3, chloride 115, CO2 is 14, anion gap is 10, BUN is 2, creatinine 0.4. Her white count dropped to 3.8 today so we need to monitor that. I had left her on Rocephin and Flagyl. I was also looking for the stool culture, ova and parasite final, no ova and parasite seen, only Giardia is negative. We are only looking for Cryptosporidium which is left at this time, and if that comes negative, then probably we can discontinue antibiotics, but would give at least 5 days total from the start day. She was started on 11/12/2018, so may be after tomorrow on 11/17/2018, we will discontinue the antibiotics as there is no reason to give them, just continue for one day tomorrow. Jameson Barth MD [facility] # [id number]
[2018-11-16 06:46] LABS: EOS # 0.1 K/uL (0.0-0.7); HEMOGLOBIN 7.9 g/dL (11.0-16.0); LYMPH # 1.3 K/uL (1.0-4.3); LYMPH % 40.3 % (20.0-40.0); MEAN CORPUSCULAR HEMOGLOBIN 18.6 pg (27.0-31.0); MEAN PLATELET VOLUME 8.7 fL (7.2-11.7); MONO # 0.3 K/uL (0.0-0.8); NEUT # 1.5 K/uL (1.8-7.0); WHITE BLOOD COUNT 3.2 K/uL (4.8-10.8)
[2018-11-16 07:03] LABS: ALB/GLOB RATIO 0.6 (1.0-2.1); ALBUMIN 1.8 g/dL (3.5-5.0); ALT/SGPT 34 U/L (9-52); AST/SGOT 34 U/L (14-36); BLOOD UREA NITROGEN 3 mg/dL (7-17); CALCIUM 7.5 mg/dl (8.6-10.4); GFR NON-AFRICAN AMERICAN > 60
[2018-11-16 07:17] LABS: HEMOGLOBIN A 97.1 Percent (>96.0); HEMOGLOBIN A2 1.9 Percent (1.8-3.5)
[2018-11-16 07:25] LABS: BASO % 0.7 % (0.0-2.0); MEAN CELL VOLUME 65.2 fL (81.0-99.0); MEAN CORPUSCULAR HGB CONC 28.5 g/dL (33.0-37.0); MONO % 10.5 % (0.0-10.0); NEUT % 46.5 % (50.0-75.0); NRBC % 0.1 % (0.0-2.0); RBC 4.26 Mil/uL (3.80-5.20); RED CELL DISTRIBUTION WIDTH 19.3 % (11.5-14.5)
[2018-11-16 08:28] LABS: CARDIOLIPIN AB (IGA) 14 APL (<=11)
[2018-11-16] MEDS: Magnesium Sulfate 1 gm in D5W 1 GM/100 ML BAG IVPB SCH ×2 (09:47→10:15)
[2018-11-16] MEDS: Saccharomyces Boulardi 250 mg Cap PO SCH ×2 (09:58→17:22)
[2018-11-16] MEDS: Ferrous Sulfate 300 mg/5 mL Liq UD PO SCH (09:58)
[2018-11-16 10:12] LABS: PROTHROMBIN TIME 54.9 SECONDS (9.7-12.2)
[2018-11-16 10:13] LABS: INR 4.9
[2018-11-16] MEDS: Pantoprazole 40 mg EC Tab PO SCH (10:13)
[2018-11-16] MEDS ORDERED: Potassium Chloride 20 mEq/15 ml LIQ UD PO ONE (10:45)
[2018-11-16] MEDS: Ferric Sodium Gluconat Complex 62.5 mg/5 ml Vial IVPB SCH (10:56)
[2018-11-16] MEDS ORDERED: Magnesium Sulfate 1 gm in D5W 1 GM/100 ML BAG IVPB SCH (11:00)
--- NOTE | 2018-11-16 11:46 | CP.PCM.PN ---
Subjective - Date & Time of Evaluation Date of Evaluation: 11/16/18 Time of Evaluation: 11:40 - Subjective Subjective: MIss Christopher is doing well, and has no new deficits. no new weakness, no other issues noted. no headache, no nausea, no vomiting. ROS; as above. ON exam: AAox3. PERRL. Cn 2-12 normal. 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 speech fluent. MMS: 30/30. sensory: decreased ft, pin in right arm, all other modalities normal. gait not tested. 2 dtr ul and ll bl. Toes downgoing, no clonus. Objective - Vital Signs/Intake and Output Vital Signs (last 24 hours): Temp Pulse Resp BP Pulse Ox 98.1 F 81 16 104/52 L 100 11/16/18 04:00 11/16/18 01:00 11/16/18 01:00 11/16/18 04:00 11/16/18 01:00 Intake and Output: 11/16/18 11/16/18 06:59 18:59 Intake Total 1237.0 964.7 Output Total 1500 800 Balance -263.0 164.7 - Medications Medications: Current Medications Acetaminophen (Tylenol 325mg Tab) 650 mg PO Q6 PRN PRN Reason: Fever >100.4 F Last Admin: 11/13/18 00:01 Dose: 650 mg Ferric Sodium Gluconate Complex (Ferrlecit) 125 mg IVPB DAILY@1100 [facility] Stop: 11/23/18 10:01 Last Admin: 11/16/18 10:56 Dose: 125 mg Ferrous Sulfate (Feosol Liq) 300 mg PO DAILY [facility] Last Admin: 11/16/18 09:58 Dose: 300 mg Heparin Sodium/Sodium Chloride (Heparin 91152 Units/250ml 1/2 Normal Saline) 25,000 units in 250 mls @ 6.891 mls/hr IV .Q24H PRN; Protocol PRN Reason: PROTOCOL Last Titration: 11/16/18 08:49 Dose: 11.88 units/kg/hr, 4.548 mls/hr Metronidazole (Flagyl) 500 mg in 100 mls @ 100 mls/hr IVPB Q8H [facility]; Protocol Last Admin: 11/16/18 01:55 Dose: 100 mls/hr Sodium Chloride (Sodium Chloride 0.9%) 1,000 mls @ 100 mls/hr IV .Q10H [facility] Last Admin: 11/16/18 00:00 Dose: 100 mls/hr Ceftriaxone Sodium 2 gm/ (Sodium Chloride) 100 mls @ 100 mls/hr IVPB DAILY@1800 [facility]; Protocol Levetiracetam (Keppra) 500 mg PO BID [facility] Last Admin: 11/16/18 10:13 Dose: 500 mg Lorazepam (Ativan) 0.5 mg IVP Q6H PRN PRN Reason: Agitation Last Admin: 11/13/18 09:39 Dose: 0.5 mg Pantoprazole Sodium (Protonix Ec Tab) 40 mg PO DAILY [facility] Last Admin: 11/16/18 10:13 Dose: 40 mg Saccharomyces Boulardii (Florastor) 250 mg PO BID [facility] Last Admin: 11/16/18 09:58 Dose: 250 mg - Labs Labs: 11/16/18 06:42 11/16/18 06:42 PT 54.9 SECONDS (9.7-12.2) H D 11/16/18 08:35 INR 4.9 H* D 11/16/18 08:35 APTT 62 SECONDS (21-34) H 11/16/18 08:35 Assessment and Plan - Assessment and Plan (Free Text) Assessment: 23 yr old woman with right cortical vein thrombosis and resulting right parietal stroke who is improving steadily. However, she has increasing INR, and gi bleed. PLan 1. recommend holding coumadin 2. coagulable workup still pending. 3. Recommend Dr. Garcia consult to delineate underlying disorder Thank you Dr. Kulkarni
[2018-11-16] MEDS: Sodium Chloride 0.9% 1,000 ML IV SCH ×2 (14:00)
--- NOTE | 2018-11-16 14:21 | CP.PCM.PN ---
Subjective - Date & Time of Evaluation Date of Evaluation: 11/16/18 Time of Evaluation: 14:18 - Subjective Subjective: Saulo Patrick PGY1 Progress Note for Dr. Pisano Patient was examined at bedside this morning. She says she feels tremulous, but is able to speak and follow commands. She denies headache or tingling at this time. She reports numbness in the left elbow. She also reports feeling weak. She denies any episodes of diarrhea today. Objective - Vital Signs/Intake and Output Vital Signs (last 24 hours): Temp Pulse Resp BP Pulse Ox 97.6 F 100 H 18 97/48 L 100 11/16/18 11:59 11/16/18 11:59 11/16/18 11:59 11/16/18 11:59 11/16/18 11:59 Intake and Output: 11/16/18 11/16/18 06:59 18:59 Intake Total 1237.0 1014.7 Output Total 1500 1500 Balance -263.0 -485.3 - Medications Medications: Current Medications Acetaminophen (Tylenol 325mg Tab) 650 mg PO Q6 PRN PRN Reason: Fever >100.4 F Last Admin: 11/13/18 00:01 Dose: 650 mg Ferric Sodium Gluconate Complex (Ferrlecit) 125 mg IVPB DAILY@1100 [facility] Stop: 11/23/18 10:01 Last Admin: 11/16/18 10:56 Dose: 125 mg Ferrous Sulfate (Feosol Liq) 300 mg PO DAILY [facility] Last Admin: 11/16/18 09:58 Dose: 300 mg Heparin Sodium/Sodium Chloride (Heparin 89067 Units/250ml 1/2 Normal Saline) 25,000 units in 250 mls @ 6.891 mls/hr IV .Q24H PRN; Protocol PRN Reason: PROTOCOL Last Titration: 11/16/18 08:49 Dose: 11.88 units/kg/hr, 4.548 mls/hr Metronidazole (Flagyl) 500 mg in 100 mls @ 100 mls/hr IVPB Q8H [facility]; Protocol Last Admin: 11/16/18 11:44 Dose: 100 mls/hr Sodium Chloride (Sodium Chloride 0.9%) 1,000 mls @ 100 mls/hr IV .Q10H [facility] Last Admin: 11/16/18 00:00 Dose: 100 mls/hr Ceftriaxone Sodium 2 gm/ (Sodium Chloride) 100 mls @ 100 mls/hr IVPB DAILY@1800 [facility]; Protocol Levetiracetam (Keppra) 500 mg PO BID [facility] Last Admin: 11/16/18 10:13 Dose: 500 mg Lorazepam (Ativan) 0.5 mg IVP Q6H PRN PRN Reason: Agitation Last Admin: 11/13/18 09:39 Dose: 0.5 mg Pantoprazole Sodium (Protonix Ec Tab) 40 mg PO DAILY [facility] Last Admin: 11/16/18 10:13 Dose: 40 mg Saccharomyces Boulardii (Florastor) 250 mg PO BID [facility] Last Admin: 11/16/18 09:58 Dose: 250 mg - Labs Labs: 11/16/18 06:42 11/16/18 06:42 PT 54.9 SECONDS (9.7-12.2) H D 11/16/18 08:35 INR 4.9 H* D 11/16/18 08:35 APTT 62 SECONDS (21-34) H 11/16/18 08:35 - Constitutional Appears: No Acute Distress, Cachectic - Head Exam Head Exam: ATRAUMATIC, NORMOCEPHALIC - Eye Exam Eye Exam: EOMI, Normal appearance, PERRL Pupil Exam: NORMAL ACCOMODATION - ENT Exam ENT Exam: Mucous Membranes Moist - Neck Exam Neck Exam: Normal Inspection - Respiratory Exam Respiratory Exam: Clear to Ausculation Bilateral, NORMAL BREATHING PATTERN. absent: Rales, Rhonchi, Wheezes - Cardiovascular Exam Cardiovascular Exam: Tachycardia, +S1, +S2. absent: Gallop, Rubs, Murmur - GI/Abdominal Exam GI & Abdominal Exam: Soft, Normal Bowel Sounds. absent: Distended, Tenderness - Extremities Exam Extremities Exam: Normal Inspection. 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 Focal encephalomalacia at R superior frontal parietal lobe likely subacute infarct. - MRI Brain 11/12: 3.6 x 2.4cm venous infarction in the right posterior parietal lobe with juxtacortical hemorrhage. no significant mass effect or midline shift. cortical venous thrombosis leading up to hemorrhagic venous infarction in R posterior parietal lobe. - MRI C spine 11/12/18: normal - Venous Duplex b/l LE 11/12: no superficial or DVT. normal valve function - CTA head and neck 11/11: no endoluminal thrombus, occlusion, or definite significant stenosis in the intracranial arteries. No stenosis in internal carotid arteries. Patent bilateral vertebral arteries. - CT Head 11/11: faint hypodensity in the right parietal lobe consistent with infarction. - ECHO 11/12: EF 60-65%, grade I abnormal relaxation pattern, bubble study is suggestive of possible pfo. aortic root is normal size. IVC is normal in size and collapses > 50% with inspiration. no pericardial effusion. - Anticardiolipin Ab indeterminate - pending remaining coag workup - HIV, RPR, hepatitis panel negative - Heparin drip slowed today as PTT was elevated - INR 4.9 after 1 dose coumadin, hold for now - steep incline in INR likely due to depleted vitamin K in gut secondary to prolonged diarrhea - encourage patient to eat full meals to replenish vitamin K in gut - Neuro Consulted, Dr. Shad ford appreciated - Heme/Onc Consulted, Dr. Jose ford appreciated - Cardio consulted, Dr. Jamey ford appreciated Iron Deficiency Anemia - H/H 7.9/27.8 today - FOBT positive - Ferrous sulfate 300mg PO daily - Ferrlecit 125mg IV daily - do not transfuse today, follow H/H tomorrow AM as per heme - Heme/Onc consulted, Dr. Jose ford appreciated Seizure like Activity - EEG: normal awake and sleep 24 hour video EEG. continuous slowing in the R temporal frontal region that could suggest underlying lesion or postictal state. - Keppra 500mg PO BID - Ativan 0.5 IVP q6h PRN Diarrhea - improved, patient denies any episodes today - stool O&P negative - stool leukocytes negative - c. diff negative - giardia negative - f/u cryptosporidium - Florastor 250mg PO BID - Continue Flagyl 500mg IV q8h and Ceftriaxone 2g IV daily until 11/17 to complete 5 day course, as per ID - GI consulted, recs appreciated - ID consulted, Dr. Barth - recs appreciated PPX: GI: protonix 40mg PO daily DVT: heparin drip Regular Diet Patient seen and case reviewed with Dr. Pisano
[2018-11-16 14:26] LABS: B2 GLYCOPROTEIN I AB(IGA) 9 SAU (<=20); B2 GLYCOPROTEIN I AB(IGG) <9 SGU (<=20); B2 GLYCOPROTEIN I AB(IGM) <9 SMU (<=20)
[2018-11-16 15:08] LABS: SOURCE STOOL
[2018-11-16] MEDS ORDERED: cefTRIAXone 2 GM in Sodium Chloride 0.9% 100 ML IVPB SCH (18:00)
[2018-11-16 21:05] LABS: INR 5.5; PROTHROMBIN TIME 60.4 SECONDS (9.7-12.2)
--- NOTE | 2018-11-16 21:10 | CP.PCM.PN ---
Subjective - Date & Time of Evaluation Date of Evaluation: 11/16/18 Time of Evaluation: 21:10 - Subjective Subjective: Patient seen and evaluated No cardiac issues at this time Will sign off Please re consult if needed Thank you Objective - Vital Signs/Intake and Output Vital Signs (last 24 hours): Temp Pulse Resp BP Pulse Ox 98.1 F 106 H 22 102/60 100 11/16/18 16:00 11/16/18 18:20 11/16/18 17:00 11/16/18 16:00 11/16/18 17:00 Intake and Output: 11/16/18 11/17/18 18:59 06:59 Intake Total 1984.2 Output Total 2100 Balance -115.8 - Medications Medications: Current Medications Acetaminophen (Tylenol 325mg Tab) 650 mg PO Q6 PRN PRN Reason: Fever >100.4 F Last Admin: 11/13/18 00:01 Dose: 650 mg Ferric Sodium Gluconate Complex (Ferrlecit) 125 mg IVPB DAILY@1100 [facility] Stop: 11/23/18 10:01 Last Admin: 11/16/18 10:56 Dose: 125 mg Ferrous Sulfate (Feosol Liq) 300 mg PO DAILY [facility] Last Admin: 11/16/18 09:58 Dose: 300 mg Sodium Chloride (Sodium Chloride 0.9%) 1,000 mls @ 100 mls/hr IV .Q10H [facility] Last Admin: 11/16/18 14:00 Dose: 100 mls/hr Ceftriaxone Sodium 2 gm/ (Sodium Chloride) 100 mls @ 100 mls/hr IVPB DAILY@1800 [facility]; Protocol Last Admin: 11/16/18 17:23 Dose: 100 mls/hr Levetiracetam (Keppra) 500 mg PO BID [facility] Last Admin: 11/16/18 17:22 Dose: 500 mg Lorazepam (Ativan) 0.5 mg IVP Q6H PRN PRN Reason: Agitation Last Admin: 11/13/18 09:39 Dose: 0.5 mg Pantoprazole Sodium (Protonix Ec Tab) 40 mg PO DAILY [facility] Last Admin: 11/16/18 10:13 Dose: 40 mg Saccharomyces Boulardii (Florastor) 250 mg PO BID [facility] Last Admin: 11/16/18 17:22 Dose: 250 mg - Labs Labs: 11/16/18 06:42 11/16/18 06:42 PT 60.4 SECONDS (9.7-12.2) H D 11/16/18 20:45 INR 5.5 H* 11/16/18 20:45 APTT 60 SECONDS (21-34) H D 11/16/18 20:45
--- NOTE | 2018-11-16 21:42 | CP.PCM.PN ---
Subjective - Date & Time of Evaluation Date of Evaluation: 11/16/18 Time of Evaluation: 15:45 - Subjective Subjective: dictated Objective - Vital Signs/Intake and Output Vital Signs (last 24 hours): Temp Pulse Resp BP Pulse Ox 97.9 F 106 H 22 102/60 100 11/16/18 20:00 11/16/18 18:20 11/16/18 17:00 11/16/18 16:00 11/16/18 17:00 Intake and Output: 11/16/18 11/17/18 18:59 06:59 Intake Total 1984.2 Output Total 2100 Balance -115.8 - Medications Medications: Current Medications Acetaminophen (Tylenol 325mg Tab) 650 mg PO Q6 PRN PRN Reason: Fever >100.4 F Last Admin: 11/13/18 00:01 Dose: 650 mg Ferric Sodium Gluconate Complex (Ferrlecit) 125 mg IVPB DAILY@1100 [facility] Stop: 11/23/18 10:01 Last Admin: 11/16/18 10:56 Dose: 125 mg Ferrous Sulfate (Feosol Liq) 300 mg PO DAILY [facility] Last Admin: 11/16/18 09:58 Dose: 300 mg Sodium Chloride (Sodium Chloride 0.9%) 1,000 mls @ 100 mls/hr IV .Q10H [facility] Last Admin: 11/16/18 14:00 Dose: 100 mls/hr Ceftriaxone Sodium 2 gm/ (Sodium Chloride) 100 mls @ 100 mls/hr IVPB DAILY@1800 [facility]; Protocol Last Admin: 11/16/18 17:23 Dose: 100 mls/hr Levetiracetam (Keppra) 500 mg PO BID [facility] Last Admin: 11/16/18 17:22 Dose: 500 mg Lorazepam (Ativan) 0.5 mg IVP Q6H PRN PRN Reason: Agitation Last Admin: 11/13/18 09:39 Dose: 0.5 mg Pantoprazole Sodium (Protonix Ec Tab) 40 mg PO DAILY [facility] Last Admin: 11/16/18 10:13 Dose: 40 mg Saccharomyces Boulardii (Florastor) 250 mg PO BID [facility] Last Admin: 11/16/18 17:22 Dose: 250 mg - Labs Labs: 11/16/18 06:42 11/16/18 06:42 PT 60.4 SECONDS (9.7-12.2) H D 11/16/18 20:45 INR 5.5 H* 11/16/18 20:45 APTT 60 SECONDS (21-34) H D 11/16/18 20:45
--- NOTE | 2018-11-16 22:03 | CP.PCM.PN ---
Subjective - Date & Time of Evaluation Date of Evaluation: 11/15/18 Time of Evaluation: 20:00 - Subjective Subjective: Feeling better Objective - Vital Signs/Intake and Output Vital Signs (last 24 hours): Temp Pulse Resp BP Pulse Ox 97.9 F 106 H 22 102/60 100 11/16/18 20:00 11/16/18 18:20 11/16/18 17:00 11/16/18 16:00 11/16/18 17:00 Intake and Output: 11/16/18 11/17/18 18:59 06:59 Intake Total 1984.2 Output Total 2100 Balance -115.8 - Medications Medications: Current Medications Acetaminophen (Tylenol 325mg Tab) 650 mg PO Q6 PRN PRN Reason: Fever >100.4 F Last Admin: 11/13/18 00:01 Dose: 650 mg Ferric Sodium Gluconate Complex (Ferrlecit) 125 mg IVPB DAILY@1100 [facility] Stop: 11/23/18 10:01 Last Admin: 11/16/18 10:56 Dose: 125 mg Ferrous Sulfate (Feosol Liq) 300 mg PO DAILY [facility] Last Admin: 11/16/18 09:58 Dose: 300 mg Sodium Chloride (Sodium Chloride 0.9%) 1,000 mls @ 100 mls/hr IV .Q10H [facility] Last Admin: 11/16/18 14:00 Dose: 100 mls/hr Levetiracetam (Keppra) 500 mg PO BID [facility] Last Admin: 11/16/18 17:22 Dose: 500 mg Lorazepam (Ativan) 0.5 mg IVP Q6H PRN PRN Reason: Agitation Last Admin: 11/13/18 09:39 Dose: 0.5 mg Pantoprazole Sodium (Protonix Ec Tab) 40 mg PO DAILY [facility] Last Admin: 11/16/18 10:13 Dose: 40 mg Saccharomyces Boulardii (Florastor) 250 mg PO BID [facility] Last Admin: 11/16/18 17:22 Dose: 250 mg - Labs Labs: 11/16/18 06:42 11/16/18 06:42 PT 60.4 SECONDS (9.7-12.2) H D 11/16/18 20:45 INR 5.5 H* 11/16/18 20:45 APTT 60 SECONDS (21-34) H D 11/16/18 20:45 - Head Exam Head Exam: ATRAUMATIC - Eye Exam Eye Exam: Normal appearance - ENT Exam ENT Exam: Mucous Membranes Dry - Respiratory Exam Respiratory Exam: NORMAL BREATHING PATTERN - Cardiovascular Exam Cardiovascular Exam: +S1, +S2 - GI/Abdominal Exam GI & Abdominal Exam: Normal Bowel Sounds - Extremities Exam Extremities Exam: Normal Inspection Assessment and Plan (1) Anemia Assessment & Plan: iron deficiency anemia on supplementation Status: Acute (2) Coagulopathy Assessment & Plan: anticoagulation Status: Acute (3) Cerebral venous thrombosis of cortical vein Assessment & Plan: on theapeutic anticoagulation f/u inherited thrombophilia w/u Status: Acute
--- NOTE | 2018-11-16 22:04 | CP.PCM.PN ---
Subjective - Date & Time of Evaluation Date of Evaluation: 11/16/18 Time of Evaluation: 19:00 - Subjective Subjective: Feeling better, trying to eat more. Objective - Vital Signs/Intake and Output Vital Signs (last 24 hours): Temp Pulse Resp BP Pulse Ox 97.9 F 106 H 22 102/60 100 11/16/18 20:00 11/16/18 18:20 11/16/18 17:00 11/16/18 16:00 11/16/18 17:00 Intake and Output: 11/16/18 11/17/18 18:59 06:59 Intake Total 1984.2 Output Total 2100 Balance -115.8 - Medications Medications: Current Medications Acetaminophen (Tylenol 325mg Tab) 650 mg PO Q6 PRN PRN Reason: Fever >100.4 F Last Admin: 11/13/18 00:01 Dose: 650 mg Ferric Sodium Gluconate Complex (Ferrlecit) 125 mg IVPB DAILY@1100 [facility] Stop: 11/23/18 10:01 Last Admin: 11/16/18 10:56 Dose: 125 mg Ferrous Sulfate (Feosol Liq) 300 mg PO DAILY [facility] Last Admin: 11/16/18 09:58 Dose: 300 mg Sodium Chloride (Sodium Chloride 0.9%) 1,000 mls @ 100 mls/hr IV .Q10H [facility] Last Admin: 11/16/18 14:00 Dose: 100 mls/hr Levetiracetam (Keppra) 500 mg PO BID [facility] Last Admin: 11/16/18 17:22 Dose: 500 mg Lorazepam (Ativan) 0.5 mg IVP Q6H PRN PRN Reason: Agitation Last Admin: 11/13/18 09:39 Dose: 0.5 mg Pantoprazole Sodium (Protonix Ec Tab) 40 mg PO DAILY [facility] Last Admin: 11/16/18 10:13 Dose: 40 mg Saccharomyces Boulardii (Florastor) 250 mg PO BID [facility] Last Admin: 11/16/18 17:22 Dose: 250 mg - Labs Labs: 11/16/18 06:42 11/16/18 06:42 PT 60.4 SECONDS (9.7-12.2) H D 11/16/18 20:45 INR 5.5 H* 11/16/18 20:45 APTT 60 SECONDS (21-34) H D 11/16/18 20:45 - Head Exam Head Exam: ATRAUMATIC - Eye Exam Eye Exam: Normal appearance - ENT Exam ENT Exam: Mucous Membranes Dry - Respiratory Exam Respiratory Exam: NORMAL BREATHING PATTERN - Cardiovascular Exam Cardiovascular Exam: +S1, +S2 - GI/Abdominal Exam GI & Abdominal Exam: Normal Bowel Sounds Assessment and Plan (1) Anemia Assessment & Plan: iron deficiency anemia on supplementation Status: Acute (2) Coagulopathy Assessment & Plan: on anticoagulation heparin held due to rising PTT coumadin for goal INR 2-3 Status: Acute (3) Cerebral venous thrombosis of cortical vein Assessment & Plan: therapeutic anticoagulation f/u inherited thrombophilia w/u Status: Acute
[2018-11-16 22:14] LABS: CARDIOLIPIN AB (IGA) 13 APL (<=11); CARDIOLIPIN AB (IGG) <14 GPL (<=14); CARDIOLIPIN AB (IGM) 13 MPL (<=12)
--- NOTE | 2018-11-17 00:27 | PN ---
DATE: 11/16/2018 SUBJECTIVE: The patient was seen today. She still has some weakness in the left arm, but able to lift it overhead, and she is not having any more diarrhea. She, however, had a high INR and she is not having diarrhea, and so I would discontinue the antibiotics after the Rocephin today. I did discontinue Flagyl while I was seeing her. OBJECTIVE: VITAL SIGNS: T-max is 97.9, heart rate of 106, blood pressure is 102/60, and respirations 20. GENERAL: She is awake and alert. HEAD: Atraumatic and normocephalic. NECK: Supple. LUNGS: Clear. HEART: S1 and S2 are regular. Little tachycardic. ABDOMEN: Soft, nontender. No guarding. No rigidity present. EXTREMITIES: Have no edema. ASSESSMENT AND PLAN: She still complains of weakness in the left arm. Neurology is following. She was seen around 3:45 today. The stool studies did not show any chance of infection, only showed occult blood. There is a note signed by the circuit court magistrate. She had a CT done which showed focal encephalomalacia at right superior frontal-parietal lobe which was cortical vein thrombosis. MRI was done and echocardiogram bubble study is suggestive of possible patent foramen ovale. We will follow with other consultants at this time. I think she is stable enough and we will discontinue antibiotics as they are causing more problems in maintaining the INR and probably not needed. If she continues to have diarrhea, may be she will need colonoscopy or gastrointestinal studies in the stool, which can be done as probably outpatient is offered by other institutions. We will follow. Jameson Barth MD
[2018-11-17] MEDS: Sodium Chloride 0.9% 1,000 ML IV SCH ×2 (01:42→10:00)
[2018-11-17 06:26] LABS: PHOSPHATIDYLSERINE AB IGA <20 U/mL (<20); PHOSPHATIDYLSERINE AB IGG <10 U/mL (<10); PHOSPHATIDYLSERINE AB IGM 30 U/mL (<25)
[2018-11-17 08:23] LABS: BASO % 0.6 % (0.0-2.0); EOS # 0.1 K/uL (0.0-0.7); EOS % 1.2 % (0.0-4.0); HEMOGLOBIN 8.7 g/dL (11.0-16.0); LYMPH # 1.1 K/uL (1.0-4.3); LYMPH % 23.3 % (20.0-40.0); MEAN CELL VOLUME 65.5 fL (81.0-99.0); MEAN CORPUSCULAR HEMOGLOBIN 19.6 pg (27.0-31.0); MEAN CORPUSCULAR HGB CONC 29.8 g/dL (33.0-37.0); MEAN PLATELET VOLUME 7.4 fL (7.2-11.7); MONO # 0.5 K/uL (0.0-0.8); MONO % 9.3 % (0.0-10.0); NEUT # 3.2 K/uL (1.8-7.0); NEUT % 65.6 % (50.0-75.0); RBC 4.46 Mil/uL (3.80-5.20); RED CELL DISTRIBUTION WIDTH 19.6 % (11.5-14.5); WHITE BLOOD COUNT 4.9 K/uL (4.8-10.8)
[2018-11-17 08:40] LABS: ALB/GLOB RATIO 0.6 (1.0-2.1); ALBUMIN 2.2 g/dL (3.5-5.0); ALT/SGPT 50 U/L (9-52); AST/SGOT 67 U/L (14-36); BLOOD UREA NITROGEN 4 mg/dL (7-17); CALCIUM 7.6 mg/dl (8.6-10.4); GFR NON-AFRICAN AMERICAN > 60
[2018-11-17 08:57] LABS: INR 4.9; PROTHROMBIN TIME 53.8 SECONDS (9.7-12.2)
[2018-11-17] MEDS: Saccharomyces Boulardi 250 mg Cap PO SCH ×2 (09:21→17:51)
[2018-11-17] MEDS: Ferrous Sulfate 300 mg/5 mL Liq UD PO SCH (09:21)
[2018-11-17] MEDS: Pantoprazole 40 mg EC Tab PO SCH (09:22)
--- NOTE | 2018-11-17 09:44 | CP.PCM.PN ---
Subjective - Date & Time of Evaluation Date of Evaluation: 11/17/18 Time of Evaluation: 09:39 - Subjective Subjective: Somrachnaijeoma Champagnetedjessymilad PGY1 Progress Note for Dr. Pisano Pt was examined at bedside this morning. She reports continuation of tingling sensation on L side of body excluding head. She denies headache, dizziness, chest pain, shortness of breath, or any seizure-like activity. She has been tolerating ensure drinks and attempting to eat more solid foods. Objective - Vital Signs/Intake and Output Vital Signs (last 24 hours): Temp Pulse Resp BP Pulse Ox 98.1 F 90 17 100/56 L 100 11/17/18 07:49 11/17/18 07:49 11/17/18 07:49 11/17/18 07:49 11/17/18 07:49 Intake and Output: 11/17/18 11/17/18 06:59 18:59 Intake Total 1700 Balance 1700 - Medications Medications: Current Medications Acetaminophen (Tylenol 325mg Tab) 650 mg PO Q6 PRN PRN Reason: Fever >100.4 F Last Admin: 11/13/18 00:01 Dose: 650 mg Ferric Sodium Gluconate Complex (Ferrlecit) 125 mg IVPB DAILY@1100 [facility] Stop: 11/23/18 10:01 Last Admin: 11/16/18 10:56 Dose: 125 mg Ferrous Sulfate (Feosol Liq) 300 mg PO DAILY [facility] Last Admin: 11/17/18 09:21 Dose: 300 mg Sodium Chloride (Sodium Chloride 0.9%) 1,000 mls @ 100 mls/hr IV .Q10H [facility] Last Admin: 11/17/18 01:42 Dose: 100 mls/hr Levetiracetam (Keppra) 500 mg PO BID [facility] Last Admin: 11/17/18 09:21 Dose: 500 mg Lorazepam (Ativan) 0.5 mg IVP Q6H PRN PRN Reason: Agitation Last Admin: 11/13/18 09:39 Dose: 0.5 mg Pantoprazole Sodium (Protonix Ec Tab) 40 mg PO DAILY [facility] Last Admin: 11/17/18 09:22 Dose: 40 mg Saccharomyces Boulardii (Florastor) 250 mg PO BID [facility] Last Admin: 11/17/18 09:21 Dose: 250 mg - Labs Labs: 11/17/18 08:17 11/17/18 08:17 PT 53.8 SECONDS (9.7-12.2) H D 11/17/18 08:17 INR 4.9 H* 11/17/18 08:17 APTT 50 SECONDS (21-34) H D 11/17/18 08:17 - Additional Findings Additional findings: - Constitutional Appears: No Acute Distress, Cachectic - Head Exam Head Exam: ATRAUMATIC, NORMOCEPHALIC - Eye Exam Eye Exam: EOMI, Normal appearance, PERRL Pupil Exam: NORMAL ACCOMODATION - ENT Exam ENT Exam: Mucous Membranes Moist - Neck Exam Neck Exam: Normal Inspection - Respiratory Exam Respiratory Exam: Clear to Ausculation Bilateral, NORMAL BREATHING PATTERN. absent: Rales, Rhonchi, Wheezes - Cardiovascular Exam Cardiovascular Exam: Tachycardia, +S1, +S2. absent: Gallop, Rubs, Murmur - GI/Abdominal Exam GI & Abdominal Exam: Soft, Normal Bowel Sounds. absent: Distended, Tenderness - Extremities Exam Extremities Exam: Normal Inspection. 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 Focal encephalomalacia at R superior frontal parietal lobe likely subacute infarct. - MRI Brain 11/12: 3.6 x 2.4cm venous infarction in the right posterior parietal lobe with juxtacortical hemorrhage. no significant mass effect or midline shift. cortical venous thrombosis leading up to hemorrhagic venous infarction in R posterior parietal lobe. - MRI C spine 11/12/18: normal - Venous Duplex b/l LE 11/12: no superficial or DVT. normal valve function - CTA head and neck 11/11: no endoluminal thrombus, occlusion, or definite significant stenosis in the intracranial arteries. No stenosis in internal carotid arteries. Patent bilateral vertebral arteries. - CT Head 11/11: faint hypodensity in the right parietal lobe consistent with infarction. - ECHO 11/12: EF 60-65%, grade I abnormal relaxation pattern, bubble study is suggestive of possible pfo. aortic root is normal size. IVC is normal in size and collapses > 50% with inspiration. no pericardial effusion. - Anticardiolipin Ab indeterminate - Phsophatidylserine IgM elevated - Acting IgG positive - [id number] thrombin mutation negative - Protein C and S labs drawn after heparin started - pending remaining coag workup - HIV, RPR, hepatitis panel negative - PTT elevated, hold heparin for now - INR 4.9 after 1 dose coumadin, hold for now - steep incline in INR likely due to depleted vitamin K in gut secondary to prolonged diarrhea - encourage patient to eat full meals to replenish vitamin K in gut - Neuro Consulted, Dr. Shad ford appreciated - Heme/Onc Consulted, Dr. Jose ford appreciated - Cardio consulted, Dr. Jamey ford appreciated Iron Deficiency Anemia - H/H 8.5/25.5 today, improved - FOBT positive - Ferrous sulfate 300mg PO daily - Ferrlecit 125mg IV daily - Heme/Onc consulted, Dr. Jose ford appreciated Seizure like Activity - EEG: normal awake and sleep 24 hour video EEG. continuous slowing in the R temporal frontal region that could suggest underlying lesion or postictal state. - Keppra 500mg PO BID - Ativan 0.5 IVP q6h PRN Diarrhea - likely cause of hypoalbuminemia and poorly regulated INR - improved, patient denies any episodes today - transglutaminase Ab positive, consider celiac disease - stool O&P negative - stool leukocytes negative - c. diff negative - giardia negative - f/u cryptosporidium - Florastor 250mg PO BID - d/c IV antibiotics - GI consulted, recs appreciated - ID consulted, Dr. Lary ford appreciated PPX: GI: protonix 40mg PO daily DVT: heparin held Regular Diet Patient seen and case reviewed with Dr. Pisano
[2018-11-17] MEDS: Ferric Sodium Gluconat Complex 62.5 mg/5 ml Vial IVPB SCH (10:24)
--- NOTE | 2018-11-17 22:16 | CP.PCM.PN ---
Subjective - Date & Time of Evaluation Date of Evaluation: 11/17/18 Time of Evaluation: 09:30 - Subjective Subjective: Patient is sitting in chair and eating. Doing well. Heparin has been stopped. Continues to have left arm numbness and weakness. ROS: malaise, headache, no nausea, no vomiting, no diarrhea, no aphasia ON exam: Neurological exam is normal except for right crucible packer: 3/5, right deltoid and triceps: 4/5. Decreased sensation in right arm, and right leg. Objective - Vital Signs/Intake and Output Vital Signs (last 24 hours): Temp Pulse Resp BP Pulse Ox 98.3 F 81 18 84/55 L 100 11/17/18 15:35 11/17/18 15:35 11/17/18 15:35 11/17/18 15:35 11/17/18 15:35 - Medications Medications: Current Medications Acetaminophen (Tylenol 325mg Tab) 650 mg PO Q6 PRN PRN Reason: Fever >100.4 F Last Admin: 11/13/18 00:01 Dose: 650 mg Ferric Sodium Gluconate Complex (Ferrlecit) 125 mg IVPB DAILY@1100 [facility] Stop: 11/23/18 10:01 Last Admin: 11/17/18 10:24 Dose: 125 mg Ferrous Sulfate (Feosol Liq) 300 mg PO DAILY [facility] Last Admin: 11/17/18 09:21 Dose: 300 mg Sodium Chloride (Sodium Chloride 0.9%) 1,000 mls @ 100 mls/hr IV .Q10H [facility] Last Admin: 11/17/18 10:00 Dose: Not Given Levetiracetam (Keppra) 500 mg PO BID [facility] Last Admin: 11/17/18 17:52 Dose: 500 mg Lorazepam (Ativan) 0.5 mg IVP Q6H PRN PRN Reason: Agitation Last Admin: 11/13/18 09:39 Dose: 0.5 mg Pantoprazole Sodium (Protonix Ec Tab) 40 mg PO DAILY [facility] Last Admin: 11/17/18 09:22 Dose: 40 mg Saccharomyces Boulardii (Florastor) 250 mg PO BID [facility] Last Admin: 11/17/18 17:51 Dose: 250 mg - Labs Labs: 11/17/18 08:17 11/17/18 08:17 PT 53.8 SECONDS (9.7-12.2) H D 02/20/19 08:17 INR 4.9 H* 11/17/18 08:17 APTT 50 SECONDS (21-34) H D 11/17/18 08:17 - Head Exam Head Exam: ATRAUMATIC, NORMAL INSPECTION, NORMOCEPHALIC - Neurological Exam Neurological Exam: Alert, Awake Neuro motor strength exam: Left Upper Extremity: 3, Right Upper Extremity: 5, Left Lower Extremity: 4, Right Lower Extremity: 5 (+2 dtr ul and ll bl. MMS: . ) Assessment and Plan - Assessment and Plan (Free Text) Assessment: 23 yr old woman with right cortical vein thrombosis and resulting right high parietal stroke. Appreciate Dr. Garcia consult and workup for thrombophilia, hereditary. ON further history taking, the patient does not take any herbal medications, and there is no family history of any disorders. Plan; 1. Continue to hold heparin 2. Repeat CT head am. 3. PT ST OT. Dr. Kulkarni
[2018-11-18] MEDS: Sodium Chloride 0.9% 1,000 ML IV SCH ×3 (01:06→16:49)
[2018-11-18 05:54] VITALS: RESP 20
[2018-11-18 07:07] LABS: BASO % 0.4 % (0.0-2.0); EOS # 0.1 K/uL (0.0-0.7); EOS % 2.5 % (0.0-4.0); HEMOGLOBIN 8.6 g/dL (11.0-16.0); LYMPH # 1.3 K/uL (1.0-4.3); LYMPH % 41.2 % (20.0-40.0); MEAN CELL VOLUME 65.6 fL (81.0-99.0); MEAN CORPUSCULAR HEMOGLOBIN 19.3 pg (27.0-31.0); MEAN CORPUSCULAR HGB CONC 29.5 g/dL (33.0-37.0); MEAN PLATELET VOLUME 8.9 fL (7.2-11.7); MONO # 0.3 K/uL (0.0-0.8); MONO % 7.7 % (0.0-10.0); NEUT # 1.6 K/uL (1.8-7.0); NEUT % 48.2 % (50.0-75.0); NRBC % 0.2 % (0.0-2.0); RBC 4.46 Mil/uL (3.80-5.20); RED CELL DISTRIBUTION WIDTH 19.1 % (11.5-14.5); WHITE BLOOD COUNT 3.3 K/uL (4.8-10.8)
[2018-11-18 07:26] LABS: INR 3.3
[2018-11-18 07:53] LABS: ALB/GLOB RATIO 0.6 (1.0-2.1); ALBUMIN 2.1 g/dL (3.5-5.0); ALT/SGPT 49 U/L (9-52); AST/SGOT 68 U/L (14-36); BLOOD UREA NITROGEN 3 mg/dL (7-17); CALCIUM 7.8 mg/dl (8.6-10.4); GFR NON-AFRICAN AMERICAN > 60
[2018-11-18] MEDS: Ferrous Sulfate 300 mg/5 mL Liq UD PO SCH (10:06)
[2018-11-18] MEDS: Pantoprazole 40 mg EC Tab PO SCH (10:07)
[2018-11-18] MEDS: Saccharomyces Boulardi 250 mg Cap PO SCH ×2 (10:08→18:01)
[2018-11-18] MEDS: Ferric Sodium Gluconat Complex 62.5 mg/5 ml Vial IVPB SCH (10:08)
--- NOTE | 2018-11-18 11:03 | CP.PCM.PN ---
Subjective - Date & Time of Evaluation Date of Evaluation: 11/18/18 Time of Evaluation: 11:00 - Subjective Subjective: Saulo Patrick PGY1 Progress Note for Dr. Pisano Pt was examined at bedside this morning. She reports less tingling feeling in the left side of her body. She denies headache, seizures, numbness, fatigue. She reports eating well and feeling better. She denies any further episodes of diarrhea. Objective - Vital Signs/Intake and Output Vital Signs (last 24 hours): Temp Pulse Resp BP Pulse Ox 98.0 F 82 20 96/65 L 99 11/18/18 07:20 11/18/18 07:20 11/18/18 07:20 11/18/18 07:20 11/18/18 07:20 - Medications Medications: Current Medications Acetaminophen (Tylenol 325mg Tab) 650 mg PO Q6 PRN PRN Reason: Fever >100.4 F Last Admin: 11/13/18 00:01 Dose: 650 mg Ferric Sodium Gluconate Complex (Ferrlecit) 125 mg IVPB DAILY@1100 [facility] Stop: 11/23/18 10:01 Last Admin: 11/18/18 10:08 Dose: 125 mg Ferrous Sulfate (Feosol Liq) 300 mg PO DAILY [facility] Last Admin: 11/18/18 10:06 Dose: 300 mg Sodium Chloride (Sodium Chloride 0.9%) 1,000 mls @ 100 mls/hr IV .Q10H [facility] Last Admin: 11/18/18 06:00 Dose: Not Given Levetiracetam (Keppra) 500 mg PO BID [facility] Last Admin: 11/18/18 10:07 Dose: 500 mg Lorazepam (Ativan) 0.5 mg IVP Q6H PRN PRN Reason: Agitation Last Admin: 11/13/18 09:39 Dose: 0.5 mg Pantoprazole Sodium (Protonix Ec Tab) 40 mg PO DAILY [facility] Last Admin: 11/18/18 10:07 Dose: 40 mg Rivaroxaban (Xarelto) 15 mg PO DAILY [facility] Saccharomyces Boulardii (Florastor) 250 mg PO BID [facility] Last Admin: 11/18/18 10:08 Dose: 250 mg - Labs Labs: 11/18/18 06:56 11/18/18 06:56 PT 36.0 SECONDS (9.7-12.2) H D 11/18/18 06:56 INR 3.3 H* D 11/18/18 06:56 APTT 50 SECONDS (21-34) H 11/18/18 06:56 - Additional Findings Additional findings: - Constitutional Appears: No Acute Distress, Cachectic - Head Exam Head Exam: ATRAUMATIC, NORMOCEPHALIC - Eye Exam Eye Exam: EOMI, Normal appearance, PERRL Pupil Exam: NORMAL ACCOMODATION - ENT Exam ENT Exam: Mucous Membranes Moist - Neck Exam Neck Exam: Normal Inspection - Respiratory Exam Respiratory Exam: Clear to Ausculation Bilateral, NORMAL BREATHING PATTERN. absent: Rales, Rhonchi, Wheezes - Cardiovascular Exam Cardiovascular Exam: Tachycardia, +S1, +S2. absent: Gallop, Rubs, Murmur - GI/Abdominal Exam GI & Abdominal Exam: Soft, Normal Bowel Sounds. absent: Distended, Tenderness - Extremities Exam Extremities Exam: Normal Inspection. absent: Pedal Edema - Neurological Exam Neurological Exam: Alert, Awake, Motor Sensory Deficit, Normal Gait, Oriented x3 Neuro motor strength exam: Left Upper Extremity: 5, Right Upper Extremity: 5, Left Lower Extremity: 5, Right Lower Extremity: 5 Additional comments: sensory deficit at L C5-6 distribution (medial anterior elbow) - Psychiatric Exam Psychiatric exam: Normal Affect, Normal Mood - Skin Skin Exam: Pallor Assessment and Plan - Assessment and Plan (Free Text) Plan: Venous Infarction in R posterior parietal lobe - rpt CT head 11/18: - CT head 11/14: no significant interval changes. Focal encephalomalacia at R superior frontal parietal lobe likely subacute infarct. - MRI Brain 11/12: 3.6 x 2.4cm venous infarction in the right posterior parietal lobe with juxtacortical hemorrhage. no significant mass effect or midline shift. cortical venous thrombosis leading up to hemorrhagic venous infarction in R posterior parietal lobe. - MRI C spine 11/12/18: normal - Venous Duplex b/l LE 11/12: no superficial or DVT. normal valve function - CTA head and neck 11/11: no endoluminal thrombus, occlusion, or definite significant stenosis in the intracranial arteries. No stenosis in internal carotid arteries. Patent bilateral vertebral arteries. - CT Head 11/11: faint hypodensity in the right parietal lobe consistent with infarction. - ECHO 11/12: EF 60-65%, grade I abnormal relaxation pattern, bubble study is suggestive of possible pfo. aortic root is normal size. IVC is normal in size and collapses > 50% with inspiration. no pericardial effusion. - Anticardiolipin Ab indeterminate - Phsophatidylserine IgM elevated - Acting IgG positive - [id number] thrombin mutation negative - Protein C and S labs drawn after heparin started - pending remaining coag workup - HIV, RPR, quantiferon, hepatitis panel negative - INR 3.3 - Start Xarelto 15mg PO daily - Neuro Consulted, Dr. Shad ford appreciated - Heme/Onc Consulted, Dr. Jose ford appreciated - Cardio consulted, Dr. Jamey ford appreciated Iron Deficiency Anemia improved - H/H 8.6/29.3 today - FOBT positive - Ferrous sulfate 300mg PO daily - Ferrlicet 125mg IV daily - Heme/Onc consulted, Dr. Jose ford appreciated Seizure like Activity improved, no further episodes - EEG: normal awake and sleep 24 hour video EEG. continuous slowing in the R temporal frontal region that could suggest underlying lesion or postictal state. - Keppra 500mg PO BID - Ativan 0.5 IVP q6h PRN Diarrhea improved, no further episodes - likely secondary to Celiac disease, r/o infectious cause - likely cause of hypoalbuminemia and poorly regulated INR - transglutaminase Ab +, anti-reticulin Ab and IgA + - Salmonella H type D serology positive - stool O&P negative - stool leukocytes negative - c. diff negative - giardia negative - f/u cryptosporidium - Florastor 250mg PO BID - GI consulted, Dr. Shaan ford appreciated - ID consulted, Dr. Lary ford appreciated Dispo: will be given ASA upon d/c PPX: GI: protonix 40mg PO daily DVT: heparin held GF diet Patient seen and case reviewed with Dr. Pisano
--- NOTE | 2018-11-18 11:04 | CP.PCM.PN ---
Subjective - Date & Time of Evaluation Date of Evaluation: 11/18/18 Time of Evaluation: 09:00 - Subjective Subjective: PGY2- Neuro Progress Note Patient seen and examined at bedside and in no acute distress. Patient is regaining strength and sensation in left extremity. Patient had 1 episode of diarrhea yesterday, but none today. Patient denies headache, dizziness, changes in vision, abdominal pain, nausea, vomiting, constipation, or diarrhea. Objective - Vital Signs/Intake and Output Vital Signs (last 24 hours): Temp Pulse Resp BP Pulse Ox 98.0 F 82 20 96/65 L 99 11/18/18 07:20 11/18/18 07:20 11/18/18 07:20 11/18/18 07:20 11/18/18 07:20 - Medications Medications: Current Medications Acetaminophen (Tylenol 325mg Tab) 650 mg PO Q6 PRN PRN Reason: Fever >100.4 F Last Admin: 11/13/18 00:01 Dose: 650 mg Ferric Sodium Gluconate Complex (Ferrlecit) 125 mg IVPB DAILY@1100 [facility] Stop: 11/23/18 10:01 Last Admin: 11/18/18 10:08 Dose: 125 mg Ferrous Sulfate (Feosol Liq) 300 mg PO DAILY [facility] Last Admin: 11/18/18 10:06 Dose: 300 mg Sodium Chloride (Sodium Chloride 0.9%) 1,000 mls @ 100 mls/hr IV .Q10H [facility] Last Admin: 11/18/18 06:00 Dose: Not Given Levetiracetam (Keppra) 500 mg PO BID [facility] Last Admin: 11/18/18 10:07 Dose: 500 mg Lorazepam (Ativan) 0.5 mg IVP Q6H PRN PRN Reason: Agitation Last Admin: 11/13/18 09:39 Dose: 0.5 mg Pantoprazole Sodium (Protonix Ec Tab) 40 mg PO DAILY [facility] Last Admin: 11/18/18 10:07 Dose: 40 mg Rivaroxaban (Xarelto) 15 mg PO DAILY [facility] Saccharomyces Boulardii (Florastor) 250 mg PO BID [facility] Last Admin: 11/18/18 10:08 Dose: 250 mg - Labs Labs: 11/18/18 06:56 11/18/18 06:56 PT 36.0 SECONDS (9.7-12.2) H D 11/18/18 06:56 INR 3.3 H* D 11/18/18 06:56 APTT 50 SECONDS (21-34) H 11/18/18 06:56 - Constitutional Appears: Non-toxic, No Acute Distress, Cachectic - Head Exam Head Exam: ATRAUMATIC, NORMAL INSPECTION, NORMOCEPHALIC - Eye Exam Eye Exam: EOMI, Normal appearance - ENT Exam ENT Exam: Mucous Membranes Moist - Respiratory Exam Respiratory Exam: Clear to Ausculation Bilateral, NORMAL BREATHING PATTERN. absent: Rales, Rhonchi, Wheezes, Respiratory Distress - Cardiovascular Exam Cardiovascular Exam: REGULAR RHYTHM, RRR, +S1, +S2 - GI/Abdominal Exam GI & Abdominal Exam: Soft, Normal Bowel Sounds. absent: Tenderness - Extremities Exam Extremities Exam: Full ROM, Normal Inspection - Neurological Exam Neurological Exam: Alert, Awake, Oriented x3 Neuro motor strength exam: Left Upper Extremity: 5, Right Upper Extremity: 4, Left Lower Extremity: 5, Right Lower Extremity: 5 Additional comments: Cerebellar Function: Finger to Nose: normal Upper motor neuron: Babinski Sign: Normal, Pronator Drift: Normal Sensory Extinction: left slightly less than right C4/ C5 dermatomes - Psychiatric Exam Psychiatric exam: Normal Affect, Normal Mood - Skin Skin Exam: Intact, Normal Color, Warm Assessment and Plan - Assessment and Plan (Free Text) Assessment: Cortical Venous Thrombosis causing Venous Infarction in R posterior parietal lobe f/u repeat MRI Head CT (11/18/18):redemonstration of presumable hemorrhagic venous infarction in the right peripheral high parietal lobe with interval mild worsening of surrounding vasogenic edema with effacement of adjacent ipsilateral cortical sulci without evidence for midline shift or herniation. Head CT (11/14/18): no significant interval changes. Focal encephalomalacia at the right superior frontal parietal lobe likely represent subacute infarct. Brain MRI (11/12/18) : 3.6 x 2.4cm venous infarction in the right posterior parietal lobe with juxtacortical hemorrhage. no significant mass effect or midline shift. cortical venous thrombosis leading up to the hemorrhagic venous infarction in the right posterior parietal lobe. MRI C spine (11/12/18): normal pre and post contrast MRI of the cervical spine. Venous Duplex Scan low ext b/l (11/12/18): no evidence of deep or superficial vein thrombosis. normal valve function noted. CTA head and neck (11/11/18): 1. no evidence of endoluminal thrombus, occlusion, or definite significant stenosis in the intracranial arteries. 2. No evidence of hemodynamically significant stenosis in the internal carotid arteries. 3.Patent bilateral vertebral arteries. CT Head (11/11/18): faint hypodensity in the right parietal lobe consistent with infarction. Echo with bubble study (11/12/18): EF 60-65%, grade I abnormal relaxation pattern, bubble study is suggestive of possible pfo. aortic root is normal size. IVC is normal in size and collapses > 50% with inspiration. no pericardial effusion. f/u Hypercoagulability work-up vit B12: 301 TSH: 1.03 free T4: 1.42 HIV, RPR, hepatitis panel negative meds: * INR elevated, Coumadin held * INR 3.3 on 11/18/18 * Xarelto 15mg po daily started on 11/18/18 Seizure like Activity EEG: This is a normal awake and sleep 24 hour video EEG. There is continuous slowing in the right temporal frontal region that could suggest underlying lesion or postictal state. continue Keppra 500mg bid please notify neuro of any acute changes in pt's condition or mental status. Discussed with Dr. Shad Medina, PGY2
--- NOTE | 2018-11-18 12:48 | CT ---
Date of service: 11/18/2018 PROCEDURE: CT HEAD WITHOUT CONTRAST. HISTORY: s/p R parietal sinus thrombus with weakness COMPARISON: CT head without contrast from and MRI brain without contrast from 11/12/2018. TECHNIQUE: Axial computed tomography images were obtained through the head/brain without intravenous contrast. Radiation dose: Total exam DLP = 810.02 mGy-cm. This CT exam was performed using one or more of the following dose reduction techniques: Automated exposure control, adjustment of the mA and/or kV according to patient size, and/or use of iterative reconstruction technique. FINDINGS: HEMORRHAGE: There is redemonstration of cortical hemorrhagic venous infarction in the right high parietal lobe. BRAIN: There is worsening vasogenic edema surrounding the hemorrhagic venous infarction in the right high parietal lobe. There is mild associated mass effect and effacement of the adjacent ipsilateral cortical sulci without evidence for herniation or midline shift. VENTRICLES: The ventricles are normal in size, shape and configuration. CALVARIUM: There is no calvarial fracture or extracranial soft tissue swelling. PARANASAL SINUSES: Predominantly clear. MASTOID AIR CELLS: Predominantly clear. OTHER FINDINGS: None. IMPRESSION: Redemonstration of presumable hemorrhagic venous infarction in the right peripheral high parietal lobe with interval mild worsening of surrounding vasogenic edema with effacement of adjacent ipsilateral cortical sulci without evidence for midline shift or herniation. MRI of the brain without and with intravenous contrast is recommended for further evaluation. Important findings were discussed with Dr. Jeffery Kulkarni on 11/18/2018 at 12:40 p.m.
[2018-11-18] MEDS: cefTRIAXone IV 1 gm in Dextros 50 ML IVPB SCH (18:00)
--- NOTE | 2018-11-18 19:45 | PN ---
DATE: 11/18/2018 INFECTIOUS DISEASE FOLLOWUP SUBJECTIVE: The patient has no diarrhea today and she is feeling better. Her left arm, she is able to lift it better. She denies any nausea, vomiting. She still remains with some mild weakness in the left upper extremity. PHYSICAL EXAMINATION: GENERAL: She is alert, awake. VITAL SIGNS: T-max is 97.7, heart rate is 106, blood pressure 98/59, respirations are 20. HEENT: Head is atraumatic and normocephalic. NECK: Supple. LUNGS: Clear. HEART: S1, S2, regular. ABDOMEN: Soft, nontender. No guarding, no rigidity present. ASSESSMENT AND PLAN: She was seen by a neurologist and she still has weakness on the left arm. The patient is being worked up for hypercoagulable state, and there is no diarrhea. I have discontinued the antibiotics as they were interfering with her blood thinner. She is on Xarelto at this time and she is on lactobacillus which could be discontinued on discharge or in three to five days. The patient came in with history of diarrhea and the infection workup was negative except that stool occult was positive. Her HIV test was negative. Serology was done for salmonella type B which was positive. Actually, we should repeat it again because we did give her treatment in which type B was positive. So, at this time, she was treated for salmonella. She did receive treatment for 5 days, and at this time, we will hold off on further antibiotics because of interference with INR, but if diarrhea persists, I think she needs to be treated for salmonella, and Rocephin was the ideal drug as sometimes they are resistant to Cipro. Jameson Barth MD
--- NOTE | 2018-11-18 23:07 | CP.PCM.PN ---
Subjective - Date & Time of Evaluation Date of Evaluation: 11/17/18 Time of Evaluation: 19:00 - Subjective Subjective: Diarrhea improved. Objective - Vital Signs/Intake and Output Vital Signs (last 24 hours): Temp Pulse Resp BP Pulse Ox 97.7 F 106 H 20 98/59 L 98 11/18/18 15:00 11/18/18 15:00 11/18/18 15:00 11/18/18 15:00 11/18/18 15:00 - Medications Medications: Current Medications Acetaminophen (Tylenol 325mg Tab) 650 mg PO Q6 PRN PRN Reason: Fever >100.4 F Last Admin: 11/13/18 00:01 Dose: 650 mg Ferric Sodium Gluconate Complex (Ferrlecit) 125 mg IVPB DAILY@1100 [facility] Stop: 11/23/18 10:01 Last Admin: 11/18/18 10:08 Dose: 125 mg Ferrous Sulfate (Feosol Liq) 300 mg PO DAILY [facility] Last Admin: 11/18/18 10:06 Dose: 300 mg Sodium Chloride (Sodium Chloride 0.9%) 1,000 mls @ 100 mls/hr IV .Q10H [facility] Last Admin: 11/18/18 16:49 Dose: Not Given Ceftriaxone Sodium (Rocephin Iv 1 Gm Duplex) 50 mls @ 100 mls/hr IVPB DAILY [facility]; Protocol Last Admin: 11/18/18 18:00 Dose: 100 mls/hr Levetiracetam (Keppra) 500 mg PO BID [facility] Last Admin: 11/18/18 18:01 Dose: 500 mg Lorazepam (Ativan) 0.5 mg IVP Q6H PRN PRN Reason: Agitation Last Admin: 11/13/18 09:39 Dose: 0.5 mg Pantoprazole Sodium (Protonix Ec Tab) 40 mg PO DAILY [facility] Last Admin: 11/18/18 10:07 Dose: 40 mg Rivaroxaban (Xarelto) 15 mg PO DAILY [facility] Last Admin: 11/18/18 13:57 Dose: 15 mg Saccharomyces Boulardii (Florastor) 250 mg PO BID [facility] Last Admin: 11/18/18 18:01 Dose: 250 mg - Labs Labs: 11/18/18 06:56 11/18/18 06:56 PT 36.0 SECONDS (9.7-12.2) H D 11/18/18 06:56 INR 3.3 H* D 11/18/18 06:56 APTT 50 SECONDS (21-34) H 11/18/18 06:56 - Head Exam Head Exam: ATRAUMATIC - Eye Exam Eye Exam: Normal appearance - ENT Exam ENT Exam: Mucous Membranes Dry - Respiratory Exam Respiratory Exam: NORMAL BREATHING PATTERN - Cardiovascular Exam Cardiovascular Exam: +S1, +S2 - GI/Abdominal Exam GI & Abdominal Exam: Normal Bowel Sounds Assessment and Plan (1) Anemia Assessment & Plan: iron deficiency on supplementation Status: Acute (2) Coagulopathy Assessment & Plan: anticoagulation Status: Acute (3) Cerebral venous thrombosis of cortical vein Assessment & Plan: therapeutic anticoagulation low protein C+S and antithrombin III may be low due to acute clotting; needs to be repeated in 3 months mild elevation of antiphospholipid antibodies; repeat in 3 months. Status: Acute
--- NOTE | 2018-11-18 23:09 | CP.PCM.PN ---
Subjective - Date & Time of Evaluation Date of Evaluation: 11/18/18 Time of Evaluation: 20:00 - Subjective Subjective: Diarrhea resolved. Objective - Vital Signs/Intake and Output Vital Signs (last 24 hours): Temp Pulse Resp BP Pulse Ox 97.7 F 106 H 20 98/59 L 98 11/18/18 15:00 11/18/18 15:00 11/18/18 15:00 11/18/18 15:00 11/18/18 15:00 - Medications Medications: Current Medications Acetaminophen (Tylenol 325mg Tab) 650 mg PO Q6 PRN PRN Reason: Fever >100.4 F Last Admin: 11/13/18 00:01 Dose: 650 mg Ferric Sodium Gluconate Complex (Ferrlecit) 125 mg IVPB DAILY@1100 [facility] Stop: 11/23/18 10:01 Last Admin: 11/18/18 10:08 Dose: 125 mg Ferrous Sulfate (Feosol Liq) 300 mg PO DAILY [facility] Last Admin: 11/18/18 10:06 Dose: 300 mg Sodium Chloride (Sodium Chloride 0.9%) 1,000 mls @ 100 mls/hr IV .Q10H [facility] Last Admin: 11/18/18 16:49 Dose: Not Given Ceftriaxone Sodium (Rocephin Iv 1 Gm Duplex) 50 mls @ 100 mls/hr IVPB DAILY [facility]; Protocol Last Admin: 11/18/18 18:00 Dose: 100 mls/hr Levetiracetam (Keppra) 500 mg PO BID [facility] Last Admin: 11/18/18 18:01 Dose: 500 mg Lorazepam (Ativan) 0.5 mg IVP Q6H PRN PRN Reason: Agitation Last Admin: 11/13/18 09:39 Dose: 0.5 mg Pantoprazole Sodium (Protonix Ec Tab) 40 mg PO DAILY [facility] Last Admin: 11/18/18 10:07 Dose: 40 mg Rivaroxaban (Xarelto) 15 mg PO DAILY [facility] Last Admin: 11/18/18 13:57 Dose: 15 mg Saccharomyces Boulardii (Florastor) 250 mg PO BID [facility] Last Admin: 11/18/18 18:01 Dose: 250 mg - Labs Labs: 11/18/18 06:56 11/18/18 06:56 PT 36.0 SECONDS (9.7-12.2) H D 11/18/18 06:56 INR 3.3 H* D 11/18/18 06:56 APTT 50 SECONDS (21-34) H 11/18/18 06:56 - Head Exam Head Exam: ATRAUMATIC - Eye Exam Eye Exam: Normal appearance - ENT Exam ENT Exam: Mucous Membranes Dry - Respiratory Exam Respiratory Exam: NORMAL BREATHING PATTERN - Cardiovascular Exam Cardiovascular Exam: +S1, +S2 Assessment and Plan (1) Anemia Assessment & Plan: iron deficiency on supplementation Status: Acute (2) Coagulopathy Assessment & Plan: anticoagulation Status: Acute (3) Cerebral venous thrombosis of cortical vein Assessment & Plan: therapeutic anticoagulation low protein C+S and antithrombin III may be low due to acute clotting; needs to be repeated in 3 months mild elevation of antiphospholipid antibodies; repeat in 3 months. Status: Acute
[2018-11-19] MEDS: Sodium Chloride 0.9% 1,000 ML IV SCH (02:56)
[2018-11-19 08:19] LABS: INR 2.5
[2018-11-19 08:33] LABS: ALB/GLOB RATIO 0.6 (1.0-2.1); ALBUMIN 2.2 g/dL (3.5-5.0); ALT/SGPT 57 U/L (9-52); AST/SGOT 75 U/L (14-36); BLOOD UREA NITROGEN 5 mg/dL (7-17); CALCIUM 7.9 mg/dl (8.6-10.4); GFR NON-AFRICAN AMERICAN > 60
[2018-11-19 08:44] LABS: BASO % 0.4 % (0.0-2.0); EOS # 0.1 K/uL (0.0-0.7); EOS % 2.1 % (0.0-4.0); HEMOGLOBIN 8.6 g/dL (11.0-16.0); LYMPH # 1.5 K/uL (1.0-4.3); MEAN CELL VOLUME 66.2 fL (81.0-99.0); MEAN CORPUSCULAR HEMOGLOBIN 19.4 pg (27.0-31.0); MEAN CORPUSCULAR HGB CONC 29.3 g/dL (33.0-37.0); MEAN PLATELET VOLUME 8.2 fL (7.2-11.7); MONO # 0.4 K/uL (0.0-0.8); MONO % 7.3 % (0.0-10.0); NEUT # 2.9 K/uL (1.8-7.0); NEUT % 59.2 % (50.0-75.0); RBC 4.41 Mil/uL (3.80-5.20); RED CELL DISTRIBUTION WIDTH 19.6 % (11.5-14.5); WHITE BLOOD COUNT 4.9 K/uL (4.8-10.8)
[2018-11-19] MEDS: Ferrous Sulfate 300 mg/5 mL Liq UD PO SCH (09:21)
[2018-11-19] MEDS: Saccharomyces Boulardi 250 mg Cap PO SCH ×2 (09:21→17:19)
[2018-11-19] MEDS: Pantoprazole 40 mg EC Tab PO SCH (09:21)
[2018-11-19] MEDS: cefTRIAXone IV 1 gm in Dextros 50 ML IVPB SCH (09:21)
[2018-11-19] MEDS: Ferric Sodium Gluconat Complex 62.5 mg/5 ml Vial IVPB SCH (10:32)
--- NOTE | 2018-11-19 13:49 | MRI ---
Date of service: 11/18/2018 PROCEDURE: MRI BRAIN WITHOUT CONTRAST HISTORY: f/u venous infarct COMPARISON: None available. TECHNIQUE: Multiplanar, multisequence MR images of the brain were obtained without intravenous contrast enhancement. FINDINGS: HEMORRHAGE: There is interval evolution of hemorrhagic venous infarction in the right posterior parietal lobe with predominantly intracellular methemoglobin components appearing hyperintense on T1 and hypointense on T2 weighted images. There is increased magnetic susceptibility on gradient images corresponding to the areas of hemorrhage. DWI: Redemonstration of peripheral restricted diffusion in hemorrhagic venous infarction in the right posterior parietal lobe. BRAIN PARENCHYMA: There is interval increase in vasogenic edema surrounding the known hemorrhagic venous infarction in the right posterior parietal lobe. There is no evidence for mass effect or midline shift. VENTRICLES: The ventricles are normal in size, shape and configuration. CRANIUM: There is normal bone marrow signal pattern. ORBITS: Grossly unremarkable. PARANASAL SINUSES/MASTOIDS: Predominantly clear. VASCULAR SYSTEM: There are normal signal voids in the larger intracranial arteries. There is redemonstration of linear T1 hyperintensity in the cortical vein overlying the hemorrhagic venous infarction suggestive of cortical venous thrombosis. OTHER FINDINGS: None. IMPRESSION: Interval evolution of hemorrhagic venous infarction in the right posterior parietal lobe with interval increase in moderate surrounding vasogenic edema without evidence of mass effect or midline shift. A preliminary report was provided by [email or web address].
--- NOTE | 2018-11-19 14:07 | CP.PCM.PN ---
Subjective - Date & Time of Evaluation Date of Evaluation: 11/19/18 Time of Evaluation: 14:06 - Subjective Subjective: 23 yr old woman with right parietal stroke, secondary to right cortical vein thrombosis, who is now doing better with improved strength. Objective - Vital Signs/Intake and Output Vital Signs (last 24 hours): Temp Pulse Resp BP Pulse Ox 98.2 F 85 20 92/63 L 100 11/19/18 07:00 11/19/18 07:00 11/19/18 07:00 11/19/18 07:00 11/19/18 07:00 - Medications Medications: Current Medications Acetaminophen (Tylenol 325mg Tab) 650 mg PO Q6 PRN PRN Reason: Fever >100.4 F Last Admin: 11/13/18 00:01 Dose: 650 mg Ferric Sodium Gluconate Complex (Ferrlecit) 125 mg IVPB DAILY@1100 [facility] Stop: 11/23/18 10:01 Last Admin: 11/19/18 10:32 Dose: 125 mg Ferrous Sulfate (Feosol Liq) 300 mg PO DAILY [facility] Last Admin: 11/19/18 09:21 Dose: 300 mg Sodium Chloride (Sodium Chloride 0.9%) 1,000 mls @ 100 mls/hr IV .Q10H [facility] Last Admin: 11/19/18 02:56 Dose: 100 mls/hr Ceftriaxone Sodium (Rocephin Iv 1 Gm Duplex) 50 mls @ 100 mls/hr IVPB DAILY [facility]; Protocol Last Admin: 11/19/18 09:21 Dose: 100 mls/hr Levetiracetam (Keppra) 500 mg PO BID [facility] Last Admin: 11/19/18 09:21 Dose: 500 mg Lorazepam (Ativan) 0.5 mg IVP Q6H PRN PRN Reason: Agitation Last Admin: 11/13/18 09:39 Dose: 0.5 mg Pantoprazole Sodium (Protonix Ec Tab) 40 mg PO DAILY [facility] Last Admin: 11/19/18 09:21 Dose: 40 mg Rivaroxaban (Xarelto) 15 mg PO DAILY [facility] Last Admin: 11/19/18 09:21 Dose: 15 mg Saccharomyces Boulardii (Florastor) 250 mg PO BID [facility] Last Admin: 11/19/18 09:21 Dose: 250 mg - Labs Labs: 11/19/18 08:03 11/19/18 08:03 PT 27.0 SECONDS (9.7-12.2) H D 11/19/18 08:03 INR 2.5 D 11/19/18 08:03 APTT 49 SECONDS (21-34) H 11/19/18 08:03
--- NOTE | 2018-11-19 14:30 | CP.PCM.PN ---
Subjective - Date & Time of Evaluation Date of Evaluation: 11/19/18 Time of Evaluation: 14:27 - Subjective Subjective: Somsindy Patrick PGY1 Progress Note for Dr. Pisano Pt was examined at bedside this morning. She reports improvement in her tingling sensation on the left side. She reports one episode of seizure like activity this morning where she was bobbing her head, however she was conscious and able to press the call button at that time. She denies headache, slurred speech, altered gait. She reports improved appetite. Objective - Vital Signs/Intake and Output Vital Signs (last 24 hours): Temp Pulse Resp BP Pulse Ox 98.2 F 85 20 92/63 L 100 11/19/18 07:00 11/19/18 07:00 11/19/18 07:00 11/19/18 07:00 11/19/18 07:00 - Medications Medications: Current Medications Acetaminophen (Tylenol 325mg Tab) 650 mg PO Q6 PRN PRN Reason: Fever >100.4 F Last Admin: 11/13/18 00:01 Dose: 650 mg Dexamethasone (Decadron Inj) 8 mg IVP DAILY [facility] Ferric Sodium Gluconate Complex (Ferrlecit) 125 mg IVPB DAILY@1100 [facility] Stop: 11/23/18 10:01 Last Admin: 11/19/18 10:32 Dose: 125 mg Ferrous Sulfate (Feosol Liq) 300 mg PO DAILY [facility] Last Admin: 11/19/18 09:21 Dose: 300 mg Sodium Chloride (Sodium Chloride 0.9%) 1,000 mls @ 100 mls/hr IV .Q10H [facility] Last Admin: 11/19/18 02:56 Dose: 100 mls/hr Ceftriaxone Sodium (Rocephin Iv 1 Gm Duplex) 50 mls @ 100 mls/hr IVPB DAILY [facility]; Protocol Last Admin: 11/19/18 09:21 Dose: 100 mls/hr Levetiracetam (Keppra) 500 mg PO BID [facility] Last Admin: 11/19/18 09:21 Dose: 500 mg Lorazepam (Ativan) 0.5 mg IVP Q6H PRN PRN Reason: Agitation Last Admin: 11/13/18 09:39 Dose: 0.5 mg Pantoprazole Sodium (Protonix Ec Tab) 40 mg PO DAILY [facility] Last Admin: 11/19/18 09:21 Dose: 40 mg Rivaroxaban (Xarelto) 15 mg PO DAILY [facility] Last Admin: 11/19/18 09:21 Dose: 15 mg Saccharomyces Boulardii (Florastor) 250 mg PO BID [facility] Last Admin: 11/19/18 09:21 Dose: 250 mg - Labs Labs: 11/19/18 08:03 11/19/18 08:03 PT 27.0 SECONDS (9.7-12.2) H D 11/19/18 08:03 INR 2.5 D 11/19/18 08:03 APTT 49 SECONDS (21-34) H 11/19/18 08:03 - Additional Findings Additional findings: - Constitutional Appears: No Acute Distress, Cachectic - Head Exam Head Exam: ATRAUMATIC, NORMOCEPHALIC - Eye Exam Eye Exam: EOMI, Normal appearance, PERRL Pupil Exam: NORMAL ACCOMODATION - ENT Exam ENT Exam: Mucous Membranes Moist - Neck Exam Neck Exam: Normal Inspection - Respiratory Exam Respiratory Exam: Clear to Ausculation Bilateral, NORMAL BREATHING PATTERN. absent: Rales, Rhonchi, Wheezes - Cardiovascular Exam Cardiovascular Exam: Tachycardia, +S1, +S2. absent: Gallop, Rubs, Murmur - GI/Abdominal Exam GI & Abdominal Exam: Soft, Normal Bowel Sounds. absent: Distended, Tenderness - Extremities Exam Extremities Exam: Normal Inspection. absent: Pedal Edema - Neurological Exam Neurological Exam: Alert, Awake, Motor Sensory Deficit, Normal Gait, Oriented x3 Neuro motor strength exam: Left Upper Extremity: 5, Right Upper Extremity: 5, Left Lower Extremity: 5, Right Lower Extremity: 5 Additional comments: sensory deficit at L C5-6 distribution (medial anterior elbow) - Psychiatric Exam Psychiatric exam: Normal Affect, Normal Mood - Skin Skin Exam: Pallor Assessment and Plan - Assessment and Plan (Free Text) Plan: Venous Infarction in R posterior parietal lobe acute - MRI brain 11/18: interval evolution of hemorrhagic venous infarction i nthe R posterior parietal lobe with interval increase in moderate surrounding vasogenic edema without evidence of mass effect or midline shift - rpt CT head 11/18: redemonstaration of prsumable hamorrhagic venous infarction in R peripheral high parietal lobe with interval mild worsening of surrounding vasogenic edema with effacement of adjacent ipsilateral cortical sulci without midline shift or herniation - CT head 11/14: no significant interval changes. Focal encephalomalacia at R superior frontal parietal lobe likely subacute infarct. - MRI Brain 11/12: 3.6 x 2.4cm venous infarction in the right posterior parietal lobe with juxtacortical hemorrhage. no significant mass effect or midline shift. cortical venous thrombosis leading up to hemorrhagic venous infarction in R posterior parietal lobe. - MRI C spine 11/12/18: normal - Venous Duplex b/l LE 11/12: no superficial or DVT. normal valve function - CTA head and neck 11/11: no endoluminal thrombus, occlusion, or definite significant stenosis in the intracranial arteries. No stenosis in internal carotid arteries. Patent bilateral vertebral arteries. - CT Head 11/11: faint hypodensity in the right parietal lobe consistent with infarction. - ECHO 11/12: EF 60-65%, grade I abnormal relaxation pattern, bubble study is suggestive of possible pfo. aortic root is normal size. IVC is normal in size and collapses > 50% with inspiration. no pericardial effusion. - Anticardiolipin Ab indeterminate - Phsophatidylserine IgM elevated - Acting IgG positive - [id number] thrombin mutation negative - Protein C and S labs drawn after heparin started - pending remaining coag workup - HIV, RPR, quantiferon, hepatitis panel negative - INR 2.5 - Xarelto 15mg PO daily - Decadron 8mg IV daily - Neuro Consulted, Dr. Shad ford appreciated - Heme/Onc Consulted, Dr. Jose ford appreciated - Cardio consulted, Dr. Jamey ford appreciated Iron Deficiency Anemia improved, chronic - H/H 8.6/29.2 today - FOBT positive - Ferrous sulfate 300mg PO daily - Ferrlicet 125mg IV daily - Heme/Onc consulted, Dr. Jose ford appreciated Seizure like Activity improved, acute - EEG: normal awake and sleep 24 hour video EEG. continuous slowing in the R temporal frontal region that could suggest underlying lesion or postictal state. - Keppra 500mg PO BID - Ativan 0.5 IVP q6h PRN Diarrhea improved, no further episodes - likely secondary to Celiac disease, r/o infectious cause - likely cause of hypoalbuminemia and poorly regulated INR - transglutaminase Ab +, anti-reticulin Ab and IgA + - Salmonella H type D serology positive - stool O&P negative - stool leukocytes negative - c. diff negative - giardia negative - f/u cryptosporidium - Florastor 250mg PO BID - GI consulted, Dr. Shaan ford appreciated - ID consulted, Dr. Lary ford appreciated Dispo: monitor edema surrounding infarct over the weekend. will be given ASA upon d/c PPX: GI: protonix 40mg PO daily DVT: heparin held GF diet Patient seen and case reviewed with Dr. Pisano
[2018-11-19] MEDS: Dexamethasone 4 mg/1 ml IVP SCH (16:01)
--- NOTE | 2018-11-19 19:34 | CP.PCM.PN ---
Subjective - Date & Time of Evaluation Date of Evaluation: 11/19/18 Time of Evaluation: 15:00 - Subjective Subjective: dictated Objective - Vital Signs/Intake and Output Vital Signs (last 24 hours): Temp Pulse Resp BP Pulse Ox 98.1 F 90 20 98/56 L 100 11/19/18 15:00 11/19/18 15:00 11/19/18 15:00 11/19/18 15:00 11/19/18 15:00 - Medications Medications: Current Medications Acetaminophen (Tylenol 325mg Tab) 650 mg PO Q6 PRN PRN Reason: Fever >100.4 F Last Admin: 11/13/18 00:01 Dose: 650 mg Dexamethasone (Decadron Inj) 8 mg IVP DAILY [facility] Last Admin: 11/19/18 16:01 Dose: 8 mg Ferric Sodium Gluconate Complex (Ferrlecit) 125 mg IVPB DAILY@1100 [facility] Stop: 11/23/18 10:01 Last Admin: 11/19/18 10:32 Dose: 125 mg Ferrous Sulfate (Feosol Liq) 300 mg PO DAILY [facility] Last Admin: 11/19/18 09:21 Dose: 300 mg Sodium Chloride (Sodium Chloride 0.9%) 1,000 mls @ 100 mls/hr IV .Q10H [facility] Last Admin: 11/19/18 02:56 Dose: 100 mls/hr Ceftriaxone Sodium (Rocephin Iv 1 Gm Duplex) 50 mls @ 100 mls/hr IVPB DAILY [facility]; Protocol Last Admin: 11/19/18 09:21 Dose: 100 mls/hr Levetiracetam (Keppra) 500 mg PO BID [facility] Last Admin: 11/19/18 17:19 Dose: 500 mg Lorazepam (Ativan) 0.5 mg IVP Q6H PRN PRN Reason: Agitation Last Admin: 11/13/18 09:39 Dose: 0.5 mg Pantoprazole Sodium (Protonix Ec Tab) 40 mg PO DAILY [facility] Last Admin: 11/19/18 09:21 Dose: 40 mg Rivaroxaban (Xarelto) 15 mg PO DAILY [facility] Last Admin: 11/19/18 09:21 Dose: 15 mg Saccharomyces Boulardii (Florastor) 250 mg PO BID [facility] Last Admin: 11/19/18 17:19 Dose: 250 mg - Labs Labs: 11/19/18 08:03 11/19/18 08:03 PT 27.0 SECONDS (9.7-12.2) H D 11/19/18 08:03 INR 2.5 D 11/19/18 08:03 APTT 49 SECONDS (21-34) H 11/19/18 08:03
--- NOTE | 2018-11-19 22:25 | PN ---
DATE: 11/19/2018 SUBJECTIVE: The patient is feeling better. She still has some tingling sensation in the left side, but it is improving. She denies any diarrhea. She had some seizure-like activity, but she was consciousness and was able to call at that time. She is doing better. No vomiting. PHYSICAL EXAMINATION: HEENT: Head is atraumatic. NECK: Supple. LUNGS: Clear. HEART: S1 and S2 are regular. ABDOMEN: Soft, nontender. No guarding, no rigidity present. EXTREMITIES: Have no edema. Left arm remains with some mild weakness. Neurologist is following. LABORATORY DATA: Labs noted from today, 4.9, hemoglobin 8.6 and is stable, hematocrit is 29.2, and platelet count is 346. INR is 2.5, which is probably expected. Her LFTs are still slightly elevated, but she is on Keppra and other medications also. Her serology was positive which showed Salmonella H type B positive and diagnosis that she had salmonellosis and her antibodies to the Salmonella. ASSESSMENT AND PLAN: At this time, she is being on treatment right from the day she came to the hospital except for one day. She is asymptomatic on Rocephin. We will continue till 11/21/2018 to complete the 10 days' course for Salmonella. We will follow. The patient came in with cortical vein thrombosis, having left upper arm tingling and is with Salmonella infection. Also had stool occult blood positive and is recovering. Has anemia and cerebrovascular accident. Jameson Barth MD
[2018-11-20] MEDS: Sodium Chloride 0.9% 1,000 ML IV SCH (01:10)
--- NOTE | 2018-11-20 07:28 | CP.PCM.PN ---
Subjective - Date & Time of Evaluation Date of Evaluation: 11/20/18 Time of Evaluation: 07:28 - Subjective Subjective: PGY-2 Progress Note: Dr. Pisano Service Patient seen and examined at bedside. Per nursing no acute events occurred overnight. Patient reports feeling better during today's examination. She denies any dizziness, changes in vision, headaches, nausea, vomiting, chest pain, shortness of breath, syncopal episodes, or any other complaints. Objective - Vital Signs/Intake and Output Vital Signs (last 24 hours): Temp Pulse Resp BP Pulse Ox 98.4 F 87 20 95/60 L 98 11/20/18 04:39 11/20/18 04:39 11/20/18 04:39 11/20/18 04:39 11/20/18 04:39 - Medications Medications: Current Medications Acetaminophen (Tylenol 325mg Tab) 650 mg PO Q6 PRN PRN Reason: Fever >100.4 F Last Admin: 11/13/18 00:01 Dose: 650 mg Dexamethasone (Decadron Inj) 8 mg IVP DAILY [facility] Last Admin: 11/19/18 16:01 Dose: 8 mg Ferric Sodium Gluconate Complex (Ferrlecit) 125 mg IVPB DAILY@1100 [facility] Stop: 11/23/18 10:01 Last Admin: 11/19/18 10:32 Dose: 125 mg Ferrous Sulfate (Feosol Liq) 300 mg PO DAILY [facility] Last Admin: 11/19/18 09:21 Dose: 300 mg Sodium Chloride (Sodium Chloride 0.9%) 1,000 mls @ 100 mls/hr IV .Q10H [facility] Last Admin: 11/20/18 01:10 Dose: 100 mls/hr Ceftriaxone Sodium (Rocephin Iv 1 Gm Duplex) 50 mls @ 100 mls/hr IVPB DAILY [facility]; Protocol Last Admin: 11/19/18 09:21 Dose: 100 mls/hr Levetiracetam (Keppra) 500 mg PO BID [facility] Last Admin: 11/19/18 17:19 Dose: 500 mg Lorazepam (Ativan) 0.5 mg IVP Q6H PRN PRN Reason: Agitation Last Admin: 11/13/18 09:39 Dose: 0.5 mg Pantoprazole Sodium (Protonix Ec Tab) 40 mg PO DAILY [facility] Last Admin: 02/22/19 09:21 Dose: 40 mg Rivaroxaban (Xarelto) 15 mg PO DAILY [facility] Last Admin: 11/19/18 09:21 Dose: 15 mg Saccharomyces Boulardii (Florastor) 250 mg PO BID [facility] Last Admin: 11/19/18 17:19 Dose: 250 mg - Labs Labs: 11/19/18 08:03 11/19/18 08:03 PT 27.0 SECONDS (9.7-12.2) H D 11/19/18 08:03 INR 2.5 D 11/19/18 08:03 APTT 49 SECONDS (21-34) H 11/19/18 08:03 - Head Exam Head Exam: ATRAUMATIC, NORMAL INSPECTION - Eye Exam Eye Exam: EOMI, Normal appearance, PERRL Pupil Exam: NORMAL ACCOMODATION - ENT Exam ENT Exam: Mucous Membranes Moist, Normal Oropharynx - Respiratory Exam Respiratory Exam: Clear to Ausculation Bilateral, NORMAL BREATHING PATTERN. absent: Respiratory Distress - Cardiovascular Exam Cardiovascular Exam: REGULAR RHYTHM, +S1, +S2. absent: Rubs - GI/Abdominal Exam GI & Abdominal Exam: Soft, Normal Bowel Sounds. absent: Hyperactive Bowel Sounds - Extremities Exam Extremities Exam: Normal Inspection. absent: Pedal Edema - Back Exam Back Exam: NORMAL INSPECTION. absent: CVA tenderness (R), paraspinal tenderness - Neurological Exam Neurological Exam: Alert, Awake, CN II-XII Intact, Oriented x3 - Psychiatric Exam Psychiatric exam: Normal Affect, Normal Mood. absent: Depressed - Skin Skin Exam: Dry, Intact. absent: Petechiae Assessment and Plan - Assessment and Plan (Free Text) Assessment: Venous Infarction in R posterior parietal lobe acute - MRI brain 11/18: interval evolution of hemorrhagic venous infarction i nthe R posterior parietal lobe with interval increase in moderate surrounding vasogenic edema without evidence of mass effect or midline shift - rpt CT head 11/18: redemonstaration of prsumable hamorrhagic venous infarction in R peripheral high parietal lobe with interval mild worsening of surrounding vasogenic edema with effacement of adjacent ipsilateral cortical sulci without midline shift or herniation - CT head 11/14: no significant interval changes. Focal encephalomalacia at R superior frontal parietal lobe likely subacute infarct. - MRI Brain 11/12: 3.6 x 2.4cm venous infarction in the right posterior parietal lobe with juxtacortical hemorrhage. no significant mass effect or midline shift. cortical venous thrombosis leading up to hemorrhagic venous infarction in R posterior parietal lobe. - MRI C spine 11/12/18: normal - Venous Duplex b/l LE 11/12: no superficial or DVT. normal valve function - CTA head and neck 11/11: no endoluminal thrombus, occlusion, or definite significant stenosis in the intracranial arteries. No stenosis in internal carotid arteries. Patent bilateral vertebral arteries. - CT Head 11/11: faint hypodensity in the right parietal lobe consistent with infarction. - ECHO 11/12: EF 60-65%, grade I abnormal relaxation pattern, bubble study is suggestive of possible pfo. aortic root is normal size. IVC is normal in size and collapses > 50% with inspiration. no pericardial effusion. - Anticardiolipin Ab indeterminate - Phsophatidylserine IgM elevated - Acting IgG positive - [id number] thrombin mutation negative - Protein C and S labs drawn after heparin started - pending remaining coag workup - HIV, RPR, quantiferon, hepatitis panel negative - INR 2.5 - Xarelto 15mg PO daily - Decadron 8mg IV daily - Neuro Consulted, Dr. Shad ford appreciated - Heme/Onc Consulted, Dr. Jose ford appreciated - Cardio consulted, Dr. Jamey ford appreciated Iron Deficiency Anemia improved, chronic - H/H 8.6/29.2 today - FOBT positive - Ferrous sulfate 300mg PO daily - Ferrlicet 125mg IV daily - Heme/Onc consulted, Dr. Jose ford appreciated Seizure like Activity improved, acute - EEG: normal awake and sleep 24 hour video EEG. continuous slowing in the R temporal frontal region that could suggest underlying lesion or postictal state. - Keppra 500mg PO BID - Ativan 0.5 IVP q6h PRN Diarrhea improved, no further episodes - likely secondary to Celiac disease, r/o infectious cause - likely cause of hypoalbuminemia and poorly regulated INR - transglutaminase Ab +, anti-reticulin Ab and IgA + - Salmonella H type D serology positive - stool O&P negative - stool leukocytes negative - c. diff negative - giardia negative - f/u cryptosporidium - Florastor 250mg PO BID - GI consulted, Dr. Shaan ford appreciated - ID consulted, Dr. Lary ford appreciated Dispo: monitor edema surrounding infarct over the weekend. will be given ASA upon d/c PPX: GI: protonix 40mg PO daily DVT: heparin held GF diet Patient seen and case reviewed with Dr. Aliya Lundberg, PGY-2
[2018-11-20 07:58] LABS: BASO % 0.2 % (0.0-2.0); HEMOGLOBIN 8.4 g/dL (11.0-16.0); LYMPH # 1.2 K/uL (1.0-4.3); LYMPH % 16.3 % (20.0-40.0); MEAN CELL VOLUME 66.9 fL (81.0-99.0); MEAN CORPUSCULAR HGB CONC 29.9 g/dL (33.0-37.0); MEAN PLATELET VOLUME 7.4 fL (7.2-11.7); MONO # 0.3 K/uL (0.0-0.8); MONO % 4.4 % (0.0-10.0); NEUT % 79.1 % (50.0-75.0); NRBC % 0.1 % (0.0-2.0); RBC 4.19 Mil/uL (3.80-5.20); RED CELL DISTRIBUTION WIDTH 19.5 % (11.5-14.5)
[2018-11-20 08:02] LABS: WHITE BLOOD COUNT 7.5 K/uL (4.8-10.8)
[2018-11-20 08:07] LABS: ALB/GLOB RATIO 0.7 (1.0-2.1); ALBUMIN 2.5 g/dL (3.5-5.0); ALT/SGPT 48 U/L (9-52); AST/SGOT 72 U/L (14-36); BLOOD UREA NITROGEN 5 mg/dL (7-17); CALCIUM 8.5 mg/dl (8.6-10.4); GFR NON-AFRICAN AMERICAN > 60
[2018-11-20 08:27] VITALS: BP 100/57; PULSE 92; TEMP 99.2; O2SAT 99
[2018-11-20] MEDS: Ferrous Sulfate 300 mg/5 mL Liq UD PO SCH (09:26)
[2018-11-20] MEDS: Dexamethasone 4 mg/1 ml IVP SCH (09:27)
[2018-11-20] MEDS: Pantoprazole 40 mg EC Tab PO SCH (09:27)
[2018-11-20] MEDS: cefTRIAXone IV 1 gm in Dextros 50 ML IVPB SCH (09:38)
[2018-11-20] MEDS: Saccharomyces Boulardi 250 mg Cap PO SCH ×2 (09:48→17:05)
[2018-11-20] MEDS: Ferric Sodium Gluconat Complex 62.5 mg/5 ml Vial IVPB SCH (10:40)
--- NOTE | 2018-11-20 14:06 | CP.PCM.DIS ---
Provider - Provider Date of Admission: 11/12/18 00:28 Attending physician: Aleksandr Pisano Jr, MD Consults: 11/11/18 23:34 Stroke Team Consult Stat Comment: LEFT SIDED WEAKNESS Consulting Provider: Neurohospitalist Consulting Physician: NEUROHOSP Neurohospitalist for Consult: Jose Martin Sandoval Neurohospitalist for Consult: Kulkarni,Gautami Reason for Consult: left side weakness 11/12/18 00:46 Neurology Consult Routine Comment: Consulting Provider: Jose Martin Sandoval Consulting Physician: Jose Martin Sandoval Reason for Consult: ischemic cva 11/12/18 17:44 Infectious Disease Consult Routine Comment: Consulting Provider: Jameson Barth Consulting Physician: Jameson Barth Reason for Consult: diarrha multiple days, recent travel to [place] 11/12/18 18:11 Cardiology Consult Routine Comment: Consulting Provider: Topher Concepcion Consulting Physician: Topher Concepcion Reason for Consult: possible pfo per echo, code stroke, left weaknes 11/12/18 19:40 Hematology Oncology Consult Routine Comment: Consulting Provider: Angel Garcia Consulting Physician: Angel Garcia Reason for Consult: 23F, no PMhx, ischemic stroke, PFO, hypercoagulable? 11/14/18 12:08 Gastroenterology Consult Routine Comment: Consulting Provider: Shekhar Garduno Consulting Physician: Shekhar Garduno Reason for Consult: diarrhea, anmia, malnutritin, poss. celiac dz or other malabsorption 11/18/18 10:52 Gastroenterology Consult Routine Comment: Consulting Provider: Shekhar Garduno Consulting Physician: Shekhar Garduno Reason for Consult: s/p CVA with +transglutaminase IgG IgA and h/o diarrhea Time Spent in preparation of Discharge (in minutes): 45 Hospital Course - Lab Results Lab Results: Micro Results 11/17/18 14:48 Naris MRSA Culture - Final MRSA NOT DETECTED 11/12/18 15:45 Blood-Venous Blood Culture - Final NO GROWTH AFTER 5 DAYS 11/12/18 15:45 Blood-Venous Gram Stain - Final TEST NOT PERFORMED 11/12/18 15:15 Blood-Venous Blood Culture - Final NO GROWTH AFTER 5 DAYS 11/12/18 15:15 Blood-Venous Gram Stain - Final TEST NOT PERFORMED 11/14/18 06:00 Bowel Ova and Parasite Concentrate Exam - Final 11/12/18 18:21 Urine,Clean Catch Urine Culture - Final No Growth (<1,000 CFU/ML) 11/12/18 02:48 Nose MRSA Culture (Admit) - Final MRSA NOT DETECTED Most Recent Lab Values WBC 7.5 K/uL (4.8-10.8) D 11/20/18 07:43 RBC 4.19 Mil/uL (3.80-5.20) 11/20/18 07:43 Hgb 8.4 g/dL (11.0-16.0) L 11/20/18 07:43 Hct 28.1 % (34.0-47.0) L 11/20/18 07:43 MCV 66.9 fL (81.0-99.0) L 11/20/18 07:43 MCH 20.0 pg (27.0-31.0) L 11/20/18 07:43 MCHC 29.9 g/dL (33.0-37.0) L 11/20/18 07:43 RDW 19.5 % (11.5-14.5) H 11/20/18 07:43 Plt Count 403 K/uL (130-400) H 11/20/18 07:43 MPV 7.4 fL (7.2-11.7) 11/20/18 07:43 Neut % (Auto) 79.1 % (50.0-75.0) H 11/20/18 07:43 Lymph % (Auto) 16.3 % (20.0-40.0) L 11/20/18 07:43 [place] % (Auto) 4.4 % (0.0-10.0) 11/20/18 07:43 Eos % (Auto) 0.0 % (0.0-4.0) 11/20/18 07:43 Baso % (Auto) 0.2 % (0.0-2.0) 11/20/18 07:43 Neut # (Auto) 6.0 K/uL (1.8-7.0) 11/20/18 07:43 Lymph # (Auto) 1.2 K/uL (1.0-4.3) 11/20/18 07:43 [place] # (Auto) 0.3 K/uL (0.0-0.8) 11/20/18 07:43 Eos # (Auto) 0.0 K/uL (0.0-0.7) 11/20/18 07:43 Baso # (Auto) 0.0 K/uL (0.0-0.2) 11/20/18 07:43 Differential Comment 11/12/18 16:06 ESR 10 mm/hr (0-20) 11/12/18 16:06 Hemoglobin A 97.1 Percent (>96.0) 11/12/18 19:42 Hemoglobin A2 1.9 Percent (1.8-3.5) 11/12/18 19:42 Hemoglobin C 0.0 Percent (0.0-0.0) 11/12/18 19: Hemoglobin F () <1.0 Percent (<2.0) 11/12/18: Hemoglobin S 0.0 Percent (0.0-0.0) 11/12/18 19: Variant Hemoglobin 0.0 Percent (0.0-0.0) 11/12/18 19:42 Hemoglobinopathy Red Blood Count 4.20 Mill/mcL (3.80-5.10) 11/12/18 19:42 Hemoglobinopathy Hct 28.2 % (35.0-45.0) L 11/12/18 19:42 Hemoglobinopathy Hgb 8.0 g/dL (11.7-15.5) L 11/12/18 19:42 Hemoglobinopathy MCV 67.1 fL (80.0-100.0) L 11/12/18 19:42 Hemoglobinopathy MCH 19.0 pg (27.0-33.0) L 11/12/18 19:42 Hemoglobinopathy RDW 19.8 % (11.0-15.0) H 11/12/18 19:42 Hemoglobinopathy Interp See note 11/12/18 19:42 PT 27.0 SECONDS (9.7-12.2) H D 11/19/18 08:03 INR 2.5 D 11/19/18 08:03 APTT 49 SECONDS (21-34) H 11/19/18 08:03 Protein C Antigen 39 % (70-140) L 11/12/18 19:42 Protein C Activity 30 % (70-180) L 11/12/18 19:42 Protein S Activity 20 % (60-140) L 11/12/18 15:59 Protein S Antigen 46 % normal (70-140) L 11/12/18 19:42 Antithrombin III Ag 57 % (80-120) L 11/12/18 15:59 Antithrombin III Activ 90 % activity (80-120) 11/12/18 19:42 Factor V see note 11/12/18 19:42 Factor V Activity 51 % (65-150) L 11/13/18 07:36 Sodium 136 mmol/L (132-148) 11/20/18 07:43 Potassium 4.0 mmol/L (3.6-5.2) 11/20/18 07:43 Chloride 103 mmol/L (98-107) 11/20/18 07:43 Carbon Dioxide 26 mmol/L (22-30) 11/20/18 07:43 Anion Gap 10 (10-20) 11/20/18 07:43 BUN 5 mg/dL (7-17) L 11/20/18 07:43 Creatinine 0.4 mg/dL (0.7-1.2) L 11/20/18 07:43 Est GFR ( Amer) > 60 11/20/18 07:43 Est GFR (Non-Af Amer) > 60 11/20/18 07:43 POC Glucose (mg/dL) 93 mg/dL (65-110) 11/17/18 11:35 Random Glucose 89 mg/dL (65-105) D 11/20/18 07:43 Hemoglobin A1c 4.9 % (4.2-6.5) 11/15/18 06:28 Lactic Acid 2.2 mmol/L (0.7-2.1) H 11/14/18 11:14 Calcium 8.5 mg/dl (8.6-10.4) L 11/20/18 07:43 Phosphorus 4.3 mg/dL (2.5-4.5) 11/19/18 08:03 Magnesium 1.7 mg/dL (1.6-2.3) 11/19/18 08:03 Iron 24 ug/dL (37-170) L 11/12/18 15:59 TIBC 204 ug/dL (250-450) L 11/12/18 15:59 % Saturation 12 (20-55) L 11/12/18 15:59 Ferritin 4.2 ng/mL 11/12/18 15:59 Total Bilirubin 0.3 mg/dL (0.2-1.3) 11/20/18 07:43 AST 72 U/L (14-36) H 11/20/18 07:43 ALT 48 U/L (9-52) 11/20/18 07:43 Alkaline Phosphatase 104 U/L (38-126) 11/20/18 07:43 CK-MB (Mass) < 0.22 ng/mL (0.0-3.38) 11/14/18 11:14 Troponin I < 0.0120 ng/mL (0.00-0.120) 11/11/18 23:41 C-Reactive Protein 9.80 mg/L (0.0-9.9) 11/12/18 15:59 Total Protein 6.1 g/dL (6.3-8.3) L 11/20/18 07:43 Albumin 2.5 g/dL (3.5-5.0) L 11/20/18 07:43 Globulin 3.6 gm/dL (2.2-3.9) 11/20/18 07:43 Albumin/Globulin Ratio 0.7 (1.0-2.1) L 11/20/18 07:43 Triglycerides 142 mg/dL (0-149) 11/11/18 23:41 Cholesterol 91 mg/dL (0-199) 11/11/18 23:41 LDL Cholesterol Direct 60 mg/dL (0-129) 11/11/18 23:41 HDL Cholesterol 27 mg/dL (30-70) L 11/11/18 23:41 Vitamin B12 301 pg/mL (239-931) 11/12/18 15:59 Free T4 1.42 ng/dL (0.78-2.19) 11/12/18 16:03 TSH 3rd Generation 1.03 mIU/L (0.46-4.68) 11/12/18 15:59 Urine Color Yellow (YELLOW) 11/12/18 12:01 Urine Clarity Hazy (Clear) 11/12/18 12:01 Urine pH 5.0 (5.0-8.0) 11/12/18 12:01 Ur Specific [place] 1.012 (1.003-1.030) 11/12/18 12:01 Urine Protein Negative mg/dL (NEGATIVE) 11/12/18 12:01 Urine Glucose (UA) Normal mg/dL (Normal) 11/12/18 12:01 Urine Ketones Negative mg/dL (NEGATIVE) 11/12/18 12:01 Urine Blood Negative (NEGATIVE) 11/12/18 12:01 Urine Nitrate Negative (NEGATIVE) 11/12/18 12:01 Urine Bilirubin Negative (NEGATIVE) 11/12/18 12:01 Urine Urobilinogen Normal mg/dL (0.2-1.0) 11/12/18 12:01 Ur Leukocyte Esterase Neg Ginny/uL (Negative) 11/12/18 12:01 Urine WBC (Auto) 3 /hpf (0-5) 11/12/18 12:01 Urine RBC (Auto) < 1 /hpf (0-3) 11/12/18 12:01 Ur Squamous Epith Cells 1 /hpf (0-5) 11/12/18 12:01 Stool Fat, Qual See note 11/15/18 21:13 Stool Occult Blood Positive (NEGATIVE) H 11/14/18 04:49 Stool Leukocytes, Qual Negative (NEGATIVE) 11/12/18 14:32 Stl Cryptosporidium Ag Not detected (Not detected) 11/14/18 06:00 Stl Giardia Antigen TEST NOT PERFORMED 11/14/18 06:00 Rheumatoid Factor <14 IU/mL (<14) 11/12/18 15:59 REI Screen Negative (NEGATIVE) 11/12/18 15:59 REI Titer TNP 11/12/18 15:59 REI Pattern TNP 11/12/18 15:59 SS-A Antibody <1.0 neg AI (<1.0 NEGATIVE) 11/12/18 15:59 SS-B Antibody <1.0 neg AI (<1.0 NEGATIVE) 11/12/18 15:59 Sm ([place]) Antibody <1.0 neg AI (<1.0 NEGATIVE) 11/12/18 15:59 SM/AR[employer] OFFICER Antibody <1.0 neg AI (<1.0 NEGATIVE) 11/12/18 15:59 Scl-70 Antibody <1.0 neg AI (<1.0 NEGATIVE) 11/12/18 15:59 Anti-ds DNA Titer (Crith) TNP 11/12/18 15:59 Anti-ds DNA (Crithidia) Negative (NEGATIVE) 11/12/18 15: Ribosomal P Prot Ab <1.0 neg AI (<1.0 NEGATIVE) 11/12/18 15:59 Anti-Mitochondrial Titr TNP 11/12/18 15: Anti-Mitochondrial Ab Negative (NEGATIVE) 11/12/18 15:59 [id number] Ab 9 STEPHANIE (<=20) 11/12/18 15: Beta-2 GPI IgG Ab <9 SGU (<=20) 11/12/18 15: Beta-2 GPI IgM Ab <9 SMU (<=20) 11/12/18 15:59 Actin IgG Antibody 29 U H 11/12/18 15:59 Striated Muscle Ab TNP 11/12/18 15:59 Myocardial Ab Titer TNP 11/12/18 15: Anti-Myocardial Ab Negative (NEGATIVE) 11/12/18 15: Reticulin Ab Titer >1:80 (<1:10) H 11/12/18 15: Reticulin IgA Antibody Positive (NEGATIVE) H 11/12/18 15:59 Tiss Transglutamin IgG 7 U/mL H 11/14/18 20:05 Tiss Transglutamin IgA >100 U/mL H 11/14/18 20:05 Thyroperoxidase Ab 1 IU/mL (<9) 11/12/18 15: Anti-Parietal Cell Ab <20.0 U 11/12/18 15: Phosphatidylserine IgG <10 U/mL (<10) 11/12/18 15:59 Phosphatidylserine IgA <20 U/mL (<20) 11/12/18 15: Phosphatidylserine IgM 30 U/mL (<25) H 11/12/18 15:59 Anti-Phospholipid Intrp see note 11/12/18 15:59 Anti-Cardiolipin IgG Ab <14 GPL (<=14) 11/12/18 15:59 Anti-Cardiolipin IgA Ab 13 APL (<=11) H 11/12/18 15:59 Anti-Cardiolipin IgM Ab 13 MPL (<=12) H 11/12/18 15:59 Complement C3 44 mg/dL (83-193) L 11/12/18 15:59 Complement C4 28 mg/dL (15-57) 11/12/18 15:59 RPR Nonreactive (NONREACTIVE) 11/12/18 16:03 Lyme Disease Screen <0.90 index 11/12/18 19:42 C. difficile Ag & Toxin Negative (NEGATIVE) 11/12/18 14:32 Cryptosp/Giardia Source Stool 11/14/18 06:00 Giardia Antigen Not detected (Not Detected) 11/14/18 06:00 Hepatitis A IgM Ab Negative (NEGATIVE) 11/12/18 15:59 Hep Bs Antigen Negative (NEGATIVE) 11/12/18 15:59 Hep B Core IgM Ab Negative (NEGATIVE) 11/12/18 15:59 Hepatitis C Antibody Negative (NEGATIVE) 11/12/18 15:59 HIV 1&2 Ag/Ab, 4th Gen Nonreactive (Nonreactive) 11/15/18 06:28 HIV 1&2 Antibody Screen Negative (NEGATIVE) 11/14/18 06:54 HIV 1&2 Antibody Nonreactive (Nonreactive) 11/12/18 19:42 Salmonella H Type A Equivocal H 11/14/18 11:14 Salmonella H Type B Positive H 11/14/18 11:14 Salmonella H Type D Equivocal H 11/14/18 11:14 Salmonella O Type D Equivocal H 11/14/18 11:14 Salmonella O Type Vi Equivocal H 11/14/18 11:14 TB Test (QFT) Nil 0.03 IU/mL 11/12/18 15:59 TB Test Mitogen - Nil 0.07 IU/mL 11/12/18 15:59 TB Test Antigen - Nil 0.01 IU/mL 11/12/18 15:59 TB Test TB - Nil 0.01 IU/mL 11/12/18 15:59 TB Test (QFT) Indeterminate (Negative) H 11/12/18 15:59 Prothrombin Mut Interp see note 11/13/18 05:47 Prothrombin Gene Mutate see note 11/13/18 05:47 Prothromb Gene Review see note 11/13/18 05:47 Blood Type B POSITIVE 11/16/18 08:35 Antibody Screen Negative 11/16/18 08:35 - Hospital Course Hospital Course: Patient is a 23 yo female with no known PMH who presents with L-sided weakness and numbness/tingling. Patient states that around 5PM, she started feeling pain in her L arm and then L leg. Her arm also felt weak, and she was unable to hold it up or tester semiconductor packages things. She then started to feel numbness and tingling of her L arm. She went to bed around 9 PM and slept for approximately 1 hour. She attempted to get out of bed around 10 PM and fell onto the floor. She states she hit her head and lost consciousness. Her friend says she heard her fall and came into her room. She found her unresponsive on the floor. The friend was able to arouse her by shaking her. The friend says the patient appeared "shocked" and was unable to sit/stand up. She called 911 at that time. Presently, the patient says she has regained movement of her L leg. She says her L arm still fells week and she has numbness and tingling in her entire L arm. She also complains of mild LEMONS. Patient reports getting more frequent HAs over the past few weeks. She denies vision or hearing changes, including tinnitus. She denies chest pain, palpitations, SOB. She recently returned from [place] 10 days ago; she was there for one month. She states she had symptoms of "food poisoning" a few weeks ago, including N/V/D. She also describes recent early satiety and continued loose stools, approximately 2x/day. She denies blood in her stool. She has lost 22 lb unintentionally over the past 1 year. She went to the health clinic at her school who diagnosed her with acid reflux. They told her if symptoms do not reso lve with antacid, then she should see GI. Patient also says she has not been urinating as frequently as she used to despite having dry mouth and drinking an increased amount of fluids. She denies dysuria or hematuria. Patient reports her LMP was 10/30-11/22. She says her menses is regular, once/month with normal flow. 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 Patient was examined and negative for dvt or carotid stenosis while admitted. Patient was started on anticoagulation and iv steroids as a result. Patient was seen by Neurology, Cardiology and determined stable from the infarction standpoint. Patient was also found to have seizure like activity and was started on Keppra while in house. While admitted patient was also found to be FOBT positive and anemic. Patient was started on IV iron supplementation and seen by Dr. Garcia. Patient also have diarrhea and stool studies and cultures were done while admitted. Patient was seen and determined stable for discharge with the following instructions below. Imaging: - MRI brain 11/18: interval evolution of hemorrhagic venous infarction i nthe R posterior parietal lobe with interval increase in moderate surrounding vasogenic edema without evidence of mass effect or midline shift - rpt CT head 11/18: redemonstaration of prsumable hamorrhagic venous infarction in R peripheral high parietal lobe with interval mild worsening of surrounding vasogenic edema with effacement of adjacent ipsilateral cortical sulci without midline shift or herniation - CT head 11/14: no significant interval changes. Focal encephalomalacia at R superior frontal parietal lobe likely subacute infarct. - MRI Brain 11/12: 3.6 x 2.4cm venous infarction in the right posterior parietal lobe with juxtacortical hemorrhage. no significant mass effect or midline shift. cortical venous thrombosis leading up to hemorrhagic venous infarction in R posterior parietal lobe. - MRI C spine 11/12/18: normal - Venous Duplex b/l LE 11/12: no superficial or DVT. normal valve function - CTA head and neck 11/11: no endoluminal thrombus, occlusion, or definite significant stenosis in the intracranial arteries. No stenosis in internal carotid arteries. Patent bilateral vertebral arteries. - CT Head 11/11: faint hypodensity in the right parietal lobe consistent with infarction. - ECHO 11/12: EF 60-65%, grade I abnormal relaxation pattern, bubble study is suggestive of possible pfo. aortic root is normal size. IVC is normal in size and collapses > 50% with inspiration. no pericardial effusion. For full read, please see EMR. Discharge Instructions: 1.F/u with PMD within 5 days of discharge. 2. F/u with Neurology Dr. Kulkarni in 2 weeks. 3. F/u with GI Dr. Garduno within 5 days of discharge. 4. Return to hospital for any new or worsening symptoms. Medications: 1.Aspirin 81mg PO Daily, #30, No refills 2. Plavix 75mg PO Daily, #30, No refills 3.Keppra 500mg PO BID, #60, No refills. Plan discussed with Attending Dr. Pisano. Pancho Lundberg, PGY-2 Discharge Exam - Head Exam Head Exam: ATRAUMATIC, NORMAL INSPECTION - Eye Exam Eye Exam: EOMI, Normal appearance, PERRL Pupil Exam: NORMAL ACCOMODATION, PERRL. absent: Irregular, Unequal - ENT Exam ENT Exam: Mucous Membranes Moist, Normal Oropharynx - Respiratory Exam Respiratory Exam: Clear to PA & Lateral, NORMAL BREATHING PATTERN, UNREMARKABLE - Cardiovascular Exam Cardiovascular Exam: REGULAR RHYTHM, +S1, +S2. absent: RRR, Rubs - GI/Abdominal Exam GI & Abdominal Exam: Normal Bowel Sounds, Unremarkable. absent: Organomegaly, Pulsatile Mass - Back Exam Back exam: NORMAL INSPECTION. absent: CVA tenderness (R), paraspinal tenderness - Neurological Exam Neurological exam: Alert, CN II-XII Intact - Psychiatric Exam Psychiatric exam: Normal Affect, Normal Mood - Skin Skin Exam: Dry, Intact Discharge Plan - Discharge Medications Prescriptions: Aspirin 81 mg PO DAILY #30 tab Clopidogrel [Plavix] 75 mg PO DAILY #30 tab levETIRAcetam [Keppra] 500 mg PO BID #60 tab - Follow Up Plan Condition: GUARDED Disposition: HOME/ ROUTINE Additional Instructions: Please follow up with your primary care physician within 1 to 2 weeks. If you do not have one, please visit the [facility] here at [facility] You can call [phone] to make an appointment. Please follow up with Dr. Garcia, Hematology/Oncology within 1 week. You can call to make an appointment. Please follow up with Dr. Garduno, Gastroenterology within 1 to 2 weeks. You can call to make an appointment. Please follow up with Dr. Kulkarni, Neurologist within 1 to 2 weeks. You can call to make an appointment. Please take your medications as prescribed. You are taking a blood-thinner, so please avoid falls. Please avoid eating gluten. Gluten-containing foods include: Wheat, Wheat germ, [place], Barley, Bulgur Couscous, [place], Aayush flour, [place], Spelt, and any fried foods with breadcrumbs. Please eat as much food with fresh ingredients as you can daily, with the goal of 5 small to medium sized meals per day. Please drink Ensure twice a day or more if you are unable to eat full meals. Referrals: Angel Garcia MD [Staff Provider] - Shekhar Garduno [Staff Provider] - Jeffery Kulkarni MD [Staff Provider] -
--- NOTE | 2018-11-20 14:13 | CP.PCM.PN ---
Subjective - Date & Time of Evaluation Date of Evaluation: 11/20/18 Time of Evaluation: 13:30 - Subjective Subjective: Patient doing well, no new complaints. No headache, no new weakness, no other issues noted. ROS; no headache, no dysarthria, no aphasia, no new weakness. On exam: AAOX3. PERRL. CN 2-12 normal. EOMI. MMS: 30/30. Motor: left sales officer is 4/5, with drift, left deltoid/triceps are 4+/5 Decreased sensation in left arm and leg. No apraxia noted. Objective - Vital Signs/Intake and Output Vital Signs (last 24 hours): Temp Pulse Resp BP Pulse Ox 99.2 F 92 H 20 100/57 L 99 11/20/18 08:26 11/20/18 08:26 11/20/18 08:26 11/20/18 08:26 11/20/18 08:26 Intake and Output: 11/20/18 11/20/18 06:59 18:59 Intake Total 800 Balance 800 - Medications Medications: Current Medications Acetaminophen (Tylenol 325mg Tab) 650 mg PO Q6 PRN PRN Reason: Fever >100.4 F Last Admin: 11/13/18 00:01 Dose: 650 mg Dexamethasone (Decadron Inj) 8 mg IVP DAILY [facility] Last Admin: 11/20/18 09:27 Dose: 8 mg Ferric Sodium Gluconate Complex (Ferrlecit) 125 mg IVPB DAILY@1100 [facility] Stop: 11/23/18 10:01 Last Admin: 11/20/18 10:40 Dose: 125 mg Ferrous Sulfate (Feosol Liq) 300 mg PO DAILY [facility] Last Admin: 11/20/18 09:26 Dose: 300 mg Sodium Chloride (Sodium Chloride 0.9%) 1,000 mls @ 100 mls/hr IV .Q10H [facility] Last Admin: 11/20/18 01:10 Dose: 100 mls/hr Ceftriaxone Sodium (Rocephin Iv 1 Gm Duplex) 50 mls @ 100 mls/hr IVPB DAILY [facility]; Protocol Last Admin: 11/20/18 09:38 Dose: 100 mls/hr Levetiracetam (Keppra) 500 mg PO BID [facility] Last Admin: 11/20/18 09:26 Dose: 500 mg Lorazepam (Ativan) 0.5 mg IVP Q6H PRN PRN Reason: Agitation Last Admin: 11/13/18 09:39 Dose: 0.5 mg Pantoprazole Sodium (Protonix Ec Tab) 40 mg PO DAILY [facility] Last Admin: 11/20/18 09:27 Dose: 40 mg Rivaroxaban (Xarelto) 15 mg PO DAILY [facility] Last Admin: 11/20/18 09:40 Dose: 15 mg Saccharomyces Boulardii (Florastor) 250 mg PO BID [facility] Last Admin: 11/20/18 09:48 Dose: 250 mg - Labs Labs: 11/20/18 07:43 11/20/18 07:43 PT 27.0 SECONDS (9.7-12.2) H D 11/19/18 08:03 INR 2.5 D 11/19/18 08:03 APTT 49 SECONDS (21-34) H 11/19/18 08:03 Assessment and Plan - Assessment and Plan (Free Text) Assessment: MRI Brain: shows increased edema in right parietal region. No hemorrhage, no new stroke noted. 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 I have discussed at length the plan of outpatient care with her brother. Plan; 1. continue on aspirin and plavix. 2. Follow up with dr. crowder in [address] thorne
[2018-11-20] MEDS ORDERED: Influenza Vaccine 60 mcg/0.5 mL SYR (4YR UP) IM ONE (16:18)
[2018-11-20] MEDS ORDERED: Pneumococcal 23-Valent Vaccine IM ONE (16:18)
--- NOTE | 2018-11-21 22:55 | CP.PCM.PN ---
Subjective - Date & Time of Evaluation Date of Evaluation: 11/19/18 Time of Evaluation: 12:00 - Subjective Subjective: No complaints. Objective - Vital Signs/Intake and Output Vital Signs (last 24 hours): Temp Pulse Resp BP Pulse Ox 99.2 F 92 H 20 100/57 L 99 11/20/18 08:26 11/20/18 08:26 11/20/18 08:26 11/20/18 08:26 11/20/18 08:26 - Labs Labs: 11/20/18 07:43 11/20/18 07:43 PT 27.0 SECONDS (9.7-12.2) H D 11/19/18 08:03 INR 2.5 D 11/19/18 08:03 APTT 49 SECONDS (21-34) H 11/19/18 08:03 - Head Exam Head Exam: ATRAUMATIC - Eye Exam Eye Exam: Normal appearance - ENT Exam ENT Exam: Mucous Membranes Dry - Respiratory Exam Respiratory Exam: NORMAL BREATHING PATTERN - Cardiovascular Exam Cardiovascular Exam: +S1, +S2 - GI/Abdominal Exam GI & Abdominal Exam: Normal Bowel Sounds Assessment and Plan (1) Anemia Assessment & Plan: iron deficiency on supplementation Status: Acute (2) Coagulopathy Assessment & Plan: anticoagulation Status: Acute (3) Cerebral venous thrombosis of cortical vein Assessment & Plan: therapeutic anticoagulation low protein C+S and antithrombin III may be low due to acute clotting; needs to be repeated in 3 months mild elevation of antiphospholipid antibodies; repeat in 3 months. Status: Acute
--- NOTE | 2018-11-21 22:56 | CP.PCM.PN ---
Subjective - Date & Time of Evaluation Date of Evaluation: 11/20/18 Time of Evaluation: 13:00 - Subjective Subjective: No complaints. Objective - Vital Signs/Intake and Output Vital Signs (last 24 hours): Temp Pulse Resp BP Pulse Ox 99.2 F 92 H 20 100/57 L 99 11/20/18 08:26 11/20/18 08:26 11/20/18 08:26 11/20/18 08:26 11/20/18 08:26 - Labs Labs: 11/20/18 07:43 11/20/18 07:43 PT 27.0 SECONDS (9.7-12.2) H D 11/19/18 08:03 INR 2.5 D 11/19/18 08:03 APTT 49 SECONDS (21-34) H 11/19/18 08:03 - Head Exam Head Exam: ATRAUMATIC - Eye Exam Eye Exam: Normal appearance - ENT Exam ENT Exam: Mucous Membranes Dry - Respiratory Exam Respiratory Exam: NORMAL BREATHING PATTERN - Cardiovascular Exam Cardiovascular Exam: +S1, +S2 - GI/Abdominal Exam GI & Abdominal Exam: Normal Bowel Sounds Assessment and Plan (1) Anemia Assessment & Plan: iron deficiency on supplementation Status: Acute (2) Coagulopathy Assessment & Plan: anticoagulation Status: Acute (3) Cerebral venous thrombosis of cortical vein Assessment & Plan: therapeutic anticoagulation low protein C+S and antithrombin III may be low due to acute clotting; needs to be repeated in 3 months mild elevation of antiphospholipid antibodies; repeat in 3 months. Status: Acute
== END 2018-11-20 17:18 | disposition home or self-care (01) | DRG 64 ==
LOC: C.ER 23:06 → C.9E 11-12 00:28 → C.9I 11-12 01:16 → C.6T 11-17 14:21
PROVIDERS: ADMIT Internal Medicine; ATTEND Internal Medicine
DX: I63.6 Cerebral infarction due to cerebral venous thrombosis, nonpyogenic (principal); G93.6 Cerebral edema; A02.9 Salmonella infection, unspecified; D68.9 Coagulation defect, unspecified; K92.2 Gastrointestinal hemorrhage, unspecified; Q21.1 Atrial septal defect; D50.9 Iron deficiency anemia, unspecified; E86.0 Dehydration; K21.9 Gastro-esophageal reflux disease without esophagitis; R56.9 Unspecified convulsions; Z79.01 Long term (current) use of anticoagulants; Z79.899 Other long term (current) drug therapy; Z83.3 Family history of diabetes mellitus